=== PATIENT | male | born 1940 | race Caucasian/White ===

== ENCOUNTER → 2021-07-27 11:38 | Outpatient (CLI) | payer MEDICARE, OTHER, SELFPAY ==
[2021-07-27 19:34] LABS: Add Manual Diff / Slide Review NO; Basophils Absolute Auto 0 /uL (0-100); Basophils Percent Auto 0.6 % (0-2); Eosinophils Absolute Auto 200 /uL (0-450); Eosinophils Percent Auto 2.6 % (2-4); Hematocrit 35.3 % (41-53); Hemoglobin 11.5 g/dL (13.5-17.5); Lymphocytes Absolute Auto 1200 /uL (1100-4500); Lymphocytes Percent Auto 20.2 % (25-40); Mean Corpuscular HGB Conc 32.5 % (30-36); Mean Corpuscular Hemoglobin 31.7 PG (26-34); Mean Corpuscular Volume 97.5 fL (80-100); Monocytes Absolute Auto 500 /uL (0-900); Monocytes Percent Auto 8.6 % (3-14); Neutrophils Absolute Auto 3900 /uL (1500-7000); Platelet Count 184 X10^3/uL (150-400); Red Blood Cell Count 3.62 X10^6/uL (4.5-5.9); White Blood Cell Count 5.7 X10^3/uL (4.5-11.0)
[2021-07-27 19:42] LABS: Alanine Aminotransferase 26 IU/L (<50); Albumin 3.8 g/dL (3.5-5.0); Albumin Globulin Ratio 1.5 (1.0-2.8); Alkaline Phosphatase 88 U/L (38-126); Aspartate Aminotransferase 36 IU/L (17-59); BUN Creatinine Ratio 27.1 (6-22); Bilirubin Total 0.6 mg/dL (0.2-1.3); Blood Urea Nitrogen 19 mg/dL (9-20); Calcium 9.8 mg/dL (8.4-10.2); Carbon Dioxide 27 mmol/L (22-32); Chloride 109 mmol/L (98-107); Cholesterol 162 mg/dL (140-199); Estimated Glomerular Filt Rate > 60.0 mL/min (>60); Globulin 2.5 g/dL (1.7-4.1); Glucose 96 mg/dL (80-110); HDL Cholesterol 97 mg/dL (40-60); HEMOLYSIS < 15 (0-50); LDL Cholesterol Calculated 52 mg/dL (<100); Potassium 4.4 mmol/L (3.4-5.1); Sodium 141 mmol/L (137-145); Total Protein 6.3 g/dL (6.3-8.2); Triglycerides 63 mg/dL (35-150); Uric Acid 5.5 mg/dL (3.5-8.5)
[2021-07-27 19:47] LABS: Rheumatoid Factor < 8.6 IU/mL (<12.0)
[2021-07-27 20:13] LABS: Prostate Specific Antigen 0.137 ng/mL (0.10-4.00)
[2021-07-30 22:35] LABS: CCP Antibodies IgG/IgA 7 units (0-19)
== END ==
PROVIDERS: PCP Family Medicine; Referring Provider Physician Assistant; Visit Provider Physician Assistant
DX: M25.542 Pain in joints of left hand (principal); R97.20 Elevated prostate specific antigen [PSA]; I10 Essential (primary) hypertension; M25.541 Pain in joints of right hand; M25.511 Pain in right shoulder; M25.512 Pain in left shoulder; E78.5 Hyperlipidemia, unspecified
CPT/HCPCS: 80053; 80061; 84153; 84550; 85025; 86200; 86430

== ENCOUNTER → 2021-11-23 13:13 | Outpatient (CLI) | payer MEDICARE, OTHER, SELFPAY ==
[2021-11-23 19:31] LABS: Alanine Aminotransferase 20 IU/L (<50); Albumin 4.3 g/dL (3.5-5.0); Albumin Globulin Ratio 1.5 (1.0-2.8); Alkaline Phosphatase 83 U/L (38-126); Aspartate Aminotransferase 38 IU/L (17-59); Bilirubin Total 0.6 mg/dL (0.2-1.3); Bilirubin Unconjugated 0.4 mg/dL (0.0-1.1); Globulin 2.8 g/dL (1.7-4.1); HEMOLYSIS 20 (0-50); Total Protein 7.1 g/dL (6.3-8.2)
== END ==
PROVIDERS: PCP Family Medicine
DX: B35.1 Tinea unguium (principal); L30.8 Other specified dermatitis; L57.0 Actinic keratosis; L21.8 Other seborrheic dermatitis; L71.8 Other rosacea; L82.1 Other seborrheic keratosis; D18.01 Hemangioma of skin and subcutaneous tissue; L57.8 Other skin changes due to chronic exposure to nonionizing radiation
CPT/HCPCS: 80076

== ENCOUNTER → 2022-06-08 | Outpatient (CLI) | payer MEDICARE, OTHER, SELFPAY ==
[2022-06-08 20:24] LABS: Add Manual Diff / Slide Review NO; Basophils Absolute Auto 100 /uL (0-100); Basophils Percent Auto 0.8 % (0-2); Eosinophils Absolute Auto 200 /uL (0-450); Eosinophils Percent Auto 3.3 % (2-4); Hematocrit 38.9 % (41-53); Lymphocytes Absolute Auto 2100 /uL (1100-4500); Lymphocytes Percent Auto 30.2 % (25-40); Mean Corpuscular HGB Conc 33.3 % (30-36); Mean Corpuscular Hemoglobin 32.6 PG (26-34); Mean Corpuscular Volume 97.9 fL (80-100); Monocytes Absolute Auto 600 /uL (0-900); Monocytes Percent Auto 9.2 % (3-14); Neutrophils Absolute Auto 4000 /uL (1500-7000); Neutrophils Percent Auto 56.5 % (50-75); Platelet Count 128 X10^3/uL (150-400); Red Blood Cell Count 3.98 X10^6/uL (4.5-5.9); Red Cell Distribution Width 14.4 % (11.6-14.8); White Blood Cell Count 7.1 X10^3/uL (4.5-11.0)
[2022-06-08 20:26] LABS: Alanine Aminotransferase 16 IU/L (<50); Albumin 4.3 g/dL (3.5-5.0); Albumin Globulin Ratio 1.7 (1.0-2.8); Alkaline Phosphatase 117 U/L (38-126); Aspartate Aminotransferase 36 IU/L (17-59); BUN Creatinine Ratio 31.9 (6-22); Bilirubin Total 0.6 mg/dL (0.2-1.3); Blood Urea Nitrogen 23 mg/dL (9-20); Calcium 9.5 mg/dL (8.4-10.2); Carbon Dioxide 29 mmol/L (22-32); Chloride 103 mmol/L (98-107); Cholesterol 177 mg/dL (140-199); Estimated Glomerular Filt Rate > 60 mL/min (>60); Globulin 2.5 g/dL (1.7-4.1); Glucose 91 mg/dL (80-110); HEMOLYSIS 18 (0-50); Sodium 139 mmol/L (137-145); Total Protein 6.8 g/dL (6.3-8.2); Triglycerides 48 mg/dL (35-150)
[2022-06-08 20:40] LABS: HDL Cholesterol 115 mg/dL (40-60); LDL Cholesterol Calculated 52 mg/dL (<100)
[2022-06-08 21:02] LABS: Prostate Specific Antigen Scrn 0.191 ng/mL (0.1-4.0)
== END ==
PROVIDERS: PCP Family Medicine; Visit Provider Family Medicine
DX: E78.2 Mixed hyperlipidemia (principal); N52.9 Male erectile dysfunction, unspecified; Z12.5 Encounter for screening for malignant neoplasm of prostate; G89.29 Other chronic pain; I10 Essential (primary) hypertension; M12.9 Arthropathy, unspecified; N13.8 Other obstructive and reflux uropathy; N40.1 Benign prostatic hyperplasia with lower urinary tract symptoms; Z13.6 Encounter for screening for cardiovascular disorders; F11.90 Opioid use, unspecified, uncomplicated
CPT/HCPCS: 80053; 80061; 80305; 85025; G0103

== ENCOUNTER → 2022-08-03 10:32 | Outpatient (CLI) | payer MEDICARE, OTHER, SELFPAY ==
[2022-08-03 20:03] LABS: Add Manual Diff / Slide Review NO; Basophils Absolute Auto 100 /uL (0-100); Eosinophils Absolute Auto 200 /uL (0-450); Eosinophils Percent Auto 2.9 % (2-4); Hematocrit 37.9 % (41-53); Lymphocytes Absolute Auto 1700 /uL (1100-4500); Mean Corpuscular HGB Conc 34.3 % (30-36); Mean Corpuscular Hemoglobin 33.4 PG (26-34); Mean Corpuscular Volume 97.4 fL (80-100); Monocytes Absolute Auto 500 /uL (0-900); Neutrophils Absolute Auto 4100 /uL (1500-7000); Neutrophils Percent Auto 63.1 % (50-75); Platelet Count 167 X10^3/uL (150-400); Red Cell Distribution Width 14.4 % (11.6-14.8); White Blood Cell Count 6.5 X10^3/uL (4.5-11.0)
[2022-08-03 20:55] LABS: Testosterone 650 ng/dL (71.8-623)
== END ==
PROVIDERS: PCP Family Medicine; Visit Provider Family Medicine
DX: N52.9 Male erectile dysfunction, unspecified (principal); D53.8 Other specified nutritional anemias; D69.6 Thrombocytopenia, unspecified; F11.90 Opioid use, unspecified, uncomplicated; Z79.890 Hormone replacement therapy
CPT/HCPCS: 84403; 85025

== ENCOUNTER → 2022-10-18 13:05 | Outpatient (CLI) | payer MEDICARE, OTHER, SELFPAY ==
[2022-10-18 19:35] LABS: Add Manual Diff / Slide Review NO; Basophils Absolute Auto 0 /uL (0-100); Basophils Percent Auto 0.5 % (0-2); Eosinophils Absolute Auto 200 /uL (0-450); Eosinophils Percent Auto 2.4 % (2-4); Hematocrit 40.4 % (41-53); Hemoglobin 13.5 g/dL (13.5-17.5); Lymphocytes Absolute Auto 2200 /uL (1100-4500); Lymphocytes Percent Auto 27.5 % (25-40); Mean Corpuscular HGB Conc 33.5 % (30-36); Mean Corpuscular Hemoglobin 32.5 PG (26-34); Mean Corpuscular Volume 96.8 fL (80-100); Monocytes Absolute Auto 500 /uL (0-900); Monocytes Percent Auto 6.7 % (3-14); Neutrophils Absolute Auto 5000 /uL (1500-7000); Neutrophils Percent Auto 62.9 % (50-75); Platelet Count 191 X10^3/uL (150-400); Red Blood Cell Count 4.17 X10^6/uL (4.5-5.9); Red Cell Distribution Width 14.7 % (11.6-14.8)
[2022-10-18 19:42] LABS: HEMOLYSIS < 15 (0-50); Iron 86 ug/dL (49-181)
[2022-10-18 19:54] LABS: Percent Iron Saturation 24 % (20-50); Total Iron Binding Capacity 355 ug/dL (261-462); Transferrin 302 mg/dL (206-381)
[2022-10-18 20:15] LABS: Prostate Specific Antigen 0.209 ng/mL (0.10-4.00)
[2022-10-18 20:36] LABS: Vitamin B12 > 1000 pg/mL (239-931)
[2022-10-28 08:42] LABS: Percent Free Testosterone 1.41 % (1.50-4.20); Testosterone Free 5.23 ng/dL (5.00-21.00); Testosterone Total 370.7 ng/dL (264.0-916.0)
== END ==
PROVIDERS: PCP Family Medicine; Visit Provider Family Medicine
DX: D53.8 Other specified nutritional anemias (principal); N40.1 Benign prostatic hyperplasia with lower urinary tract symptoms; D69.6 Thrombocytopenia, unspecified; F11.90 Opioid use, unspecified, uncomplicated; I10 Essential (primary) hypertension; N52.9 Male erectile dysfunction, unspecified; R68.82 Decreased libido; Z79.890 Hormone replacement therapy; N13.8 Other obstructive and reflux uropathy
CPT/HCPCS: 82607; 83540; 83550; 84153; 84402; 84403; 85025

== ENCOUNTER → 2023-02-06 14:35 | Outpatient (CLI) | payer MEDICARE, OTHER, SELFPAY ==
[2023-02-06 19:08] LABS: Add Manual Diff / Slide Review NO; Basophils Absolute Auto 100 /uL (0-100); Basophils Percent Auto 0.9 % (0-2); Eosinophils Absolute Auto 100 /uL (0-450); Eosinophils Percent Auto 1.9 % (2-4); Lymphocytes Absolute Auto 1600 /uL (1100-4500); Lymphocytes Percent Auto 22.8 % (25-40); Mean Corpuscular HGB Conc 34.3 % (30-36); Mean Corpuscular Hemoglobin 33.5 PG (26-34); Mean Corpuscular Volume 97.6 fL (80-100); Monocytes Absolute Auto 600 /uL (0-900); Neutrophils Absolute Auto 4500 /uL (1500-7000); Neutrophils Percent Auto 65.4 % (50-75); Platelet Count 160 X10^3/uL (150-400); Red Blood Cell Count 3.59 X10^6/uL (4.5-5.9); Red Cell Distribution Width 14.7 % (11.6-14.8); White Blood Cell Count 6.9 X10^3/uL (4.5-11.0)
[2023-02-06 19:17] LABS: Alanine Aminotransferase 24 IU/L (<50); Albumin Globulin Ratio 1.6 (1.0-2.8); Alkaline Phosphatase 76 U/L (38-126); Aspartate Aminotransferase 34 IU/L (17-59); BUN Creatinine Ratio 36.4 (6-22); Bilirubin Total 0.6 mg/dL (0.2-1.3); Blood Urea Nitrogen 24 mg/dL (9-20); Calcium 9.1 mg/dL (8.4-10.2); Carbon Dioxide 25 mmol/L (22-32); Chloride 103 mmol/L (98-107); Estimated Glomerular Filt Rate > 60 mL/min (>60); Globulin 2.5 g/dL (1.7-4.1); Glucose 126 mg/dL (80-110); HEMOLYSIS 25 (0-50); Potassium 4.5 mmol/L (3.4-5.1); Sodium 137 mmol/L (137-145); Total Protein 6.5 g/dL (6.3-8.2)
[2023-02-14 11:23] LABS: Percent Free Testosterone 1.07 % (1.50-4.20); Testosterone Free 2.21 ng/dL (5.00-21.00); Testosterone Total 206.7 ng/dL (264.0-916.0)
== END ==
PROVIDERS: Family Medicine; PCP Family Medicine; Visit Provider Family Medicine
DX: D53.8 Other specified nutritional anemias (principal); D64.9 Anemia, unspecified; F11.90 Opioid use, unspecified, uncomplicated; I10 Essential (primary) hypertension; Z79.890 Hormone replacement therapy
CPT/HCPCS: 80053; 84402; 84403; 85025

== ENCOUNTER → 2023-06-08 11:02 | Outpatient (CLI) | payer MEDICARE, OTHER, SELFPAY ==
[2023-06-08 20:24] LABS: BUN Creatinine Ratio 27.4 (6-22); Blood Urea Nitrogen 23 mg/dL (9-20); Calcium 9.8 mg/dL (8.4-10.2); Carbon Dioxide 28 mmol/L (22-32); Chloride 98 mmol/L (98-107); Cholesterol 196 mg/dL (140-199); Estimated Glomerular Filt Rate > 60 mL/min (>60); Glucose 87 mg/dL (80-110); HEMOLYSIS 31 (0-50); Potassium 4.1 mmol/L (3.4-5.1); Sodium 135 mmol/L (137-145); Triglycerides 78 mg/dL (35-150)
[2023-06-08 20:27] LABS: Hemoglobin 12.3 g/dL (13.5-17.5); Mean Corpuscular HGB Conc 34.1 % (30-36); Mean Corpuscular Volume 99.8 fL (80-100); Platelet Count 160 X10^3/uL (150-400); Red Blood Cell Count 3.61 X10^6/uL (4.5-5.9); Red Cell Distribution Width 14.3 % (11.6-14.8); White Blood Cell Count 7.5 X10^3/uL (4.5-11.0)
[2023-06-08 20:37] LABS: HDL Cholesterol 111 mg/dL (40-60); LDL Cholesterol Calculated 69 mg/dL (<100)
[2023-06-08 20:49] LABS: Prostate Specific Antigen Scrn 0.118 ng/mL (0.1-4.0)
[2023-06-08 20:55] LABS: Reticulocyte Count, Percent 0.5 % (0.9-2.6)
[2023-06-08 21:04] LABS: Neutrophils Absolute Manual 4500 /uL (3000-5900); RBC Morphology Normal Morphology; Total Cells Counted 100
[2023-06-15 09:23] LABS: Percent Free Testosterone 1.08 % (1.50-4.20); Testosterone Free 2.69 ng/dL (5.00-21.00); Testosterone Total 249.4 ng/dL (264.0-916.0)
== END ==
PROVIDERS: PCP Family Medicine; Visit Provider Family Medicine
DX: Z12.5 Encounter for screening for malignant neoplasm of prostate (principal); N52.9 Male erectile dysfunction, unspecified; D64.9 Anemia, unspecified; D69.6 Thrombocytopenia, unspecified; E78.2 Mixed hyperlipidemia; Z79.890 Hormone replacement therapy; I10 Essential (primary) hypertension
CPT/HCPCS: 80048; 80061; 84402; 84403; 85025; 85045; G0103

== ENCOUNTER → 2023-11-23 09:25 | Outpatient (CLI) | payer MEDICARE, OTHER, SELFPAY ==
[2023-11-23 20:15] LABS: Add Manual Diff / Slide Review NO; Basophils Absolute Auto 100 /uL (0-100); Basophils Percent Auto 1.2 % (0-2); Eosinophils Absolute Auto 200 /uL (0-450); Hematocrit 35.7 % (41-53); Lymphocytes Absolute Auto 2100 /uL (1100-4500); Lymphocytes Percent Auto 28.8 % (25-40); Mean Corpuscular HGB Conc 33.7 % (30-36); Mean Corpuscular Hemoglobin 32.3 PG (26-34); Mean Corpuscular Volume 95.9 fL (80-100); Monocytes Absolute Auto 700 /uL (0-900); Neutrophils Absolute Auto 4200 /uL (1500-7000); Platelet Count 190 X10^3/uL (150-400); Red Blood Cell Count 3.72 X10^6/uL (4.5-5.9); Red Cell Distribution Width 14.8 % (11.6-14.8); White Blood Cell Count 7.5 X10^3/uL (4.5-11.0)
[2023-11-23 20:29] LABS: Alanine Aminotransferase 20 IU/L (<50); Albumin 4.2 g/dL (3.5-5.0); Albumin Globulin Ratio 1.6 (1.0-2.8); Alkaline Phosphatase 74 U/L (38-126); BUN Creatinine Ratio 26.9 (6-22); Bilirubin Total 0.7 mg/dL (0.2-1.3); Blood Urea Nitrogen 25 mg/dL (9-20); Calcium 10.1 mg/dL (8.4-10.2); Carbon Dioxide 27 mmol/L (22-32); Chloride 101 mmol/L (98-107); Cholesterol 185 mg/dL (140-199); Estimated Glomerular Filt Rate > 60 mL/min (>60); Globulin 2.7 g/dL (1.7-4.1); Glucose 105 mg/dL (80-110); HDL Cholesterol 101 mg/dL (40-60); HEMOLYSIS < 15 (0-50); LDL Cholesterol Calculated 71 mg/dL (<100); Potassium 3.8 mmol/L (3.4-5.1); Sodium 138 mmol/L (137-145); Total Protein 6.9 g/dL (6.3-8.2); Triglycerides 64 mg/dL (35-150)
[2023-11-24 15:35] LABS: Aspartate Aminotransferase 29 IU/L (17-59)
[2023-12-03 17:17] LABS: Percent Free Testosterone 1.13 % (1.50-4.20); Testosterone Total 141.6 ng/dL (264.0-916.0)
== END ==
PROVIDERS: PCP Family Medicine; Visit Provider Family Medicine
DX: D69.6 Thrombocytopenia, unspecified (principal); E78.2 Mixed hyperlipidemia; D64.9 Anemia, unspecified; I10 Essential (primary) hypertension; Z79.890 Hormone replacement therapy
CPT/HCPCS: 80053; 80061; 84402; 84403; 85025

== ENCOUNTER → 2024-04-11 09:34 | Outpatient (CLI) | payer MEDICARE, OTHER, SELFPAY ==
[2024-04-11 21:37] LABS: Add Manual Diff / Slide Review NO; Basophils Absolute Auto 100 /uL (0-100); Basophils Percent Auto 1.1 % (0-2); Eosinophils Absolute Auto 300 /uL (0-450); Eosinophils Percent Auto 4.2 % (2-4); Hematocrit 39.2 % (41-53); Hemoglobin 12.9 g/dL (13.5-17.5); Lymphocytes Absolute Auto 1700 /uL (1100-4500); Lymphocytes Percent Auto 26.8 % (25-40); Mean Corpuscular HGB Conc 32.8 % (30-36); Mean Corpuscular Hemoglobin 31.9 PG (26-34); Mean Corpuscular Volume 97.1 fL (80-100); Monocytes Absolute Auto 500 /uL (0-900); Monocytes Percent Auto 8.4 % (3-14); Neutrophils Absolute Auto 3700 /uL (1500-7000); Neutrophils Percent Auto 59.5 % (50-75); Platelet Count 181 X10^3/uL (150-400); Red Blood Cell Count 4.04 X10^6/uL (4.5-5.9); White Blood Cell Count 6.3 X10^3/uL (4.5-11.0)
[2024-04-11 22:40] LABS: Alanine Aminotransferase 17 IU/L (<50); Albumin 4.4 g/dL (3.5-5.0); Albumin Globulin Ratio 1.8 (1.0-2.8); Alkaline Phosphatase 90 U/L (38-126); Aspartate Aminotransferase 27 IU/L (17-59); BUN Creatinine Ratio 21.1 (6-22); Bilirubin Total 0.7 mg/dL (0.2-1.3); Blood Urea Nitrogen 16 mg/dL (9-20); Calcium 9.7 mg/dL (8.4-10.2); Carbon Dioxide 30 mmol/L (22-32); Chloride 103 mmol/L (98-107); Cholesterol 183 mg/dL (140-199); Estimated Glomerular Filt Rate > 60 mL/min (>60); Globulin 2.5 g/dL (1.7-4.1); Glucose 98 mg/dL (80-110); HDL Cholesterol 101 mg/dL (40-60); HEMOLYSIS < 15 (0-50); LDL Cholesterol Calculated 68 mg/dL (<100); Potassium 4.1 mmol/L (3.4-5.1); Sodium 138 mmol/L (137-145); Total Protein 6.9 g/dL (6.3-8.2); Triglycerides 68 mg/dL (35-150)
[2024-04-11 23:09] LABS: Prostate Specific Antigen Scrn 0.182 ng/mL (0.1-4.0)
== END ==
PROVIDERS: PCP Family Medicine; Visit Provider Family Medicine
DX: Z12.5 Encounter for screening for malignant neoplasm of prostate (principal); Z79.891 Long term (current) use of opiate analgesic; E78.2 Mixed hyperlipidemia; F41.8 Other specified anxiety disorders; R68.82 Decreased libido; Z79.890 Hormone replacement therapy; D64.9 Anemia, unspecified; D69.6 Thrombocytopenia, unspecified; N40.1 Benign prostatic hyperplasia with lower urinary tract symptoms; N13.8 Other obstructive and reflux uropathy; I10 Essential (primary) hypertension
CPT/HCPCS: 80053; 80061; 84402; 84403; 85025; G0103

== ENCOUNTER 2024-07-04 10:33 | Inpatient (IN) | payer MEDICARE, OTHER, SELFPAY ==
[2024-07-04] VITALS (14 sets, daily range): BP systolic 115–178; BP diastolic 70–101; PULSE 71–113; RESP 16–24; TEMP 36.2–36.9; O2SAT 94–99; BMI 18.8; BMI 18.2
--- NOTE | 2024-07-04 10:47 | EKG_ITS ---
[place] [id number] [place] [id number] Test Date: 2024-07-04 Pat Name: Darwin Tellez Department: [facility] Room: Gender: Male Endodontic Assistant: REGGIE : 1940 Requested By: Order Number: [id number] Reading MD: Alvaro Roger MD Measurements Intervals [place] Rate: 96 P: 62 KS: 146 QRS: 27 QRSD: 82 T: 75 QT: 360 QTc: 454 Interpretive Statements Sinus rhythm with premature atrial complexes Possible Anterior infarct , age undetermined NO PRIOR TRACING Electronically Signed On 07-04-2024 12:07:21 PDT by Alvaro Roger MD
--- NOTE | 2024-07-04 10:47 | ED_ITS ---
HPI - General Adult General Chief complaint: Abdominal Pain Stated complaint: GI issues Time Seen by Provider: 07/04/24 10:36 Source: patient Mode of arrival: Ambulatory Limitations: no limitations History of Present Illness HPI narrative: Patient is an 83-year-old male. He stated that the end of last week he had an episode of constipation requiring multiple medications in quite a bit of straining. He states he was able to have a bowel movement afterwards. He thinks that he has had 1 small bowel movement since that time. No urinary issues. He does have a history of bowel obstructions. He stated that he was pretty sore for several days. He finally thought that he could potentially eat something so he had food that had quite a bit of lemon in it. States that afterwards he started to have what he thought was heartburn. Tried medications for this that was not improving. He had neighbors who thought that he should take some vinegar mixed with water which is what he did and that made all of his symptoms worse. He went to his primary doctor today who advised that he come to the emergency department for further evaluation. Related Data Home Medications Medication Instructions Recorded Confirmed metformin 1,000 mg tablet,extended 1,000 mg PO DAILY 05/25/23 07/03/24 release 24hr (osmotic) Previous Rx's Medication Instructions Recorded sildenafil 100 mg tablet 100 mg PO DAILY PRN sexual 12/27/21 activity #10 tabs diclofenac epolamine 1.3 % 1 patch topical ONCE #30 ea 06/15/22 transdermal 12 hour patch (Flector) propranolol 10 mg tablet 10 mg PO .qday #60 tabs 10/10/22 celecoxib 200 mg capsule 200 mg PO DAILY #90 caps 10/06/23 amlodipine 5 mg tablet 5 mg PO DAILY #90 tabs 11/10/23 tamsulosin 0.4 mg capsule (Flomax) 0.8 mg (2 x 0.4 mg) PO BEDTIME 01/09/24 #180 caps ciclopirox 1 % shampoo 10 ml topical 2XW #120 mL 02/26/24 testosterone 10 mg/0.5 2 pump transdermal QAM #60 grams 02/26/24 gram/actuation transdermal gel pump methscopolamine 5 mg tablet 5 mg PO BEDTIME Allergic 03/28/24 rhinitis #90 tabs naloxone 4 mg/actuation nasal spray 4 mg intranasal Q2M #2 ea 03/28/24 irbesartan 300 mg tablet 300 mg PO DAILY high blood 04/25/24 pressure #90 tabs simvastatin 20 mg tablet 20 mg PO DAILY #90 tabs 04/25/24 hydrocodone 10 mg-acetaminophen 1 tab PO Q8H PRN pain #28 tabs 06/21/24 325 mg tablet finasteride 5 mg tablet See Rx Instructions .Route 06/26/24 .COMPLEX #90 tabs omeprazole 20 mg capsule,delayed 20 mg PO DAILY #30 caps 07/03/24 release ondansetron 8 mg disintegrating 8 mg PO Q8H PRN nausea and 07/04/24 tablet vomiting #20 tabs Allergies Allergy/AdvReac Type Severity Reaction Status Date / Time Sulfa (Sulfonamide Allergy Verified 07/03/24 12:20 Antibiotics) Review of Systems Review of Systems ROS Unobtainable: All systems reviewed & are unremarkable except as noted in HPI and below Patient History Medical History History of anemia Unspecified disturbances of skin sensation Surgical History (Updated 04/05/22 @ 15:20 by Nataliia King LPN) History of spinal fusion Social History Smoking Status: Former smoker Smoking Status: Former smoker Exam Initial Vital Signs Initial Vital Signs: Vital Signs Pulse Rate 84 07/04/24 11:14 Respiratory Rate 18 07/04/24 11:14 Pulse Oximetry 97 07/04/24 11:14 HENMT Head: normal to inspection and normocephalic Resp Effort & Inspection: normal respiratory effort Auscultation: clear to auscultation bilaterally Cardio Rate: regular rate Rhythm: regular rhythm GI Inspection: normal to inspection and non-distended Palpation: soft and No tender Skin General: no rashes or lesions noted Neuro General: patient alert and patient awake Course Orders Ordered: ED Orders 07/04/24 10:46 CT abdomen pelvis w con Stat 07/04/24 10:47 XR chest 1V Stat EKG-12 Lead Stat 07/04/24 10:49 Complete Blood Count AUTO DIFF Stat Comprehensive Metabolic Panel Stat Lipase Stat Magnesium Stat Troponin & CK Cardiac Panel Stat 07/04/24 11:33 Ictotest Urine Stat Urine Microscopic Stat 07/04/24 12:29 Consult to General Surgery Stat Hydromorphone HCl (Hydromorphone 0.5 Mg Inj) 0.5 mg IV Q2H PRN PRN Reason: Pain, Severe (7-10) Last Admin: 07/04/24 14:19 Dose: 0.5 mg Documented By: JEFF Discontinued Medications Al Hydrox/Mg Hydrox/Simethicone 20 ml/ Lidocaine HCl 15 ml 0 ml PO NOW ONE Stop: 07/04/24 10:47 Last Admin: 07/04/24 11:04 Dose: 35 ml Documented By: KENNETH Sodium Chloride (Normal Saline 0.9%) 1,000 mls @ 1,000 mls/hr IV BOLUS ONE Stop: 07/04/24 11:45 Last Infusion: 07/04/24 12:12 Dose: Infused Documented By: Admin: 07/04/24 11:03 Dose: 1,000 mls/hr Documented By: KENNETH Ondansetron HCl (Ondansetron 4 Mg/2 Ml Inj) 4 mg IV NOW ONE Stop: 07/04/24 10:53 Last Admin: 07/04/24 11:04 Dose: 4 mg Documented By: KENNETH Pantoprazole Sodium (Pantoprazole 40 Mg Vial) 40 mg IV NOW ONE Stop: 07/04/24 10:47 Last Admin: 07/04/24 11:04 Dose: 40 mg Documented By: KENNETH Vital Signs Vital signs: Vital Signs - 8 hr 07/04/24 11:14 07/04/24 11:15 07/04/24 11:32 Temperature 97.1 F L Pulse Rate 84 98 H 84 Respiratory Rate 18 16 Blood Pressure 115/70 Pulse Oximetry 97 99 96 Oxygen Delivery Method Room Air 07/04/24 12:00 07/04/24 12:30 Temperature Pulse Rate 76 82 Respiratory Rate 23 17 Blood Pressure Pulse Oximetry 99 98 Oxygen Delivery Method Medical Decision Making Lab Data Lab results reviewed: Yes I reviewed the patient's lab results. 07/04/24 10:49 07/04/24 10:49 Labs: Lab Results 07/04/24 07/04/24 Range/Units 10:49 11:33 WBC 15.3 H (4.5-11.0) X10^3/uL RBC 4.08 L (4.5-5.9) X10^6/uL Hgb 12.9 L (13.5-17.5) g/dL Hct 38.8 L (41-53) % MCV 95.0 (80-100) fL MCH 31.7 (26-34) PG MCHC 33.3 (30-36) % RDW 15.1 H (11.6-14.8) % Plt Count 298 (150-400) X10^3/uL Neut % (Auto) 80.2 H (50-75) % Lymph % (Auto) 7.8 L (25-40) % [place] % (Auto) 11.2 (3-14) % Eos % (Auto) 0.5 L (2-4) % Baso % (Auto) 0.3 (0-2) % Neut # (Auto) 86665 H (2201-7955) /uL Lymph # (Auto) 1200 (9500-3106) /uL [place] # (Auto) 1700 H (0-900) /uL Eos # (Auto) 100 (0-450) /uL Baso # (Auto) 100 (0-100) /uL Sodium 131 L (137-145) mmol/L Potassium 3.4 (3.4-5.1) mmol/L Chloride 88 L (98-107) mmol/L Carbon Dioxide 33 H (22-32) mmol/L BUN 55 H (9-20) mg/dL Creatinine 1.24 (0.66-1.25) mg/dL Estimated GFR 58 L (>60) mL/min BUN/Creatinine Ratio 44.4 H (6-22) Glucose 125 H (80-110) mg/dL Calcium 10.2 (8.4-10.2) mg/dL Magnesium 2.3 (1.6-2.3) mg/dL Total Bilirubin 0.8 (0.2-1.3) mg/dL AST 30 (17-59) IU/L ALT 18 (<50) IU/L Alkaline Phosphatase 83 (38-126) U/L Total Creatine Kinase 32 L (55-170) U/L Troponin I < 0.012 (0.01-0.034) ng/mL Total Protein 7.0 (6.3-8.2) g/dL Albumin 3.9 (3.5-5.0) g/dL Globulin 3.1 (1.7-4.1) g/dL Albumin/Globulin Ratio 1.3 (1.0-2.8) Lipase 49 (23-300) U/L Ur Bilirubin Confirm Negative (Negative) Urine RBC None seen (0-5/HPF) Urine WBC None seen (0-5/HPF) Ur Squamous Epith Cells None seen (0-5/HPF) Urine Bacteria None seen (None) Ur Culture Indicated? Cult not indicated Vol Urine Centrifuged 10ml (spun) Urine Dip Bedside Urine Glucose Negative Bedside Urine Bilirubin + 1 Bedside Urine Ketone - Negative Urine Specific [place] 1.020 Bedside Urine Occult Blood - Negative Bedside Urine pH 6.0 Bedside Urine Protein +/- 15 Bedside Urine Urobilinogen - Negative Bedside Urine Nitrite - Negative Bedside Urine Leukocytes - Negative Esterase Point of care testing: Urine Dip Bedside Urine Glucose Negative Bedside Urine Bilirubin + 1 Bedside Urine Ketone - Negative Urine Specific [place] 1.020 Bedside Urine Occult Blood - Negative Bedside Urine pH 6.0 Bedside Urine Protein +/- 15 Bedside Urine Urobilinogen - Negative Bedside Urine Nitrite - Negative Bedside Urine Leukocytes - Negative Esterase Imaging Data Chest x-ray: Radiologist's Impression: PROCEDURE: XR CHEST 1V INDICATIONS: acid reflux TECHNIQUE: One view of the chest was acquired. COMPARISON: None. FINDINGS: Surgical changes and devices: Cervical spine fixation hardware is seen. Lungs and pleura: An incomplete inspiratory result is noted, causing a crowded appearance to the lung markings. No focal infiltrates are seen. No pneumothorax or significant pleural effusions are seen. Mediastinum: The cardiac contours are within normal limits. The aorta demonstrates calcification and tortuosity. Bones and chest wall: No suspicious bony lesions. Age-appropriate bony degenerative changes are seen. Overlying soft tissues appear unremarkable. IMPRESSION: Portable chest within normal limits for age. CT scan - abdomen/pelvis: Radiologist's Impression: PROCEDURE: CT ABDOMEN PELVIS W CON INDICATIONS: Eval for bowel obstruction TECHNIQUE: After the administration of intravenous contrast, axial sections acquired from the lung bases to the pubic symphysis. Coronal and sagittal reformats were performed. For radiation dose reduction, the following was used: automated exposure control, adjustment of mA and/or kV according to patient size. COMPARISON: None. FINDINGS: Image quality: Diagnostic. Lower Chest: No significant findings. ABDOMEN: Liver: No solid mass. Gallbladder: No radiopaque gallstones or wall thickening. Biliary ducts: No biliary dilation. Pancreas: No ductal dilation. Spleen: Size is within normal limits. Adrenal Glands: No adrenal nodules. Kidneys and Ureters: No hydronephrosis. No solid mass. No complex renal cystic lesion which requires follow up. Stomach and Bowel: High-grade proximal small bowel obstruction involving the jejunum with a transition point present. Small bowel measures up to 6.3 cm. Peritoneum: No abnormal intraperitoneal fluid. No free air. No intramural air. No portal venous gas. Ventral Wall: No significant ventral hernia. Abdominal Nodes: No retroperitoneal or mesenteric adenopathy by size criteria. Vessels: Aorta and inferior vena cava are normal in size. PELVIS: Pelvic Organs: Unremarkable. Bladder: No bladder wall thickening, accounting for underdistention. Pelvic Nodes: No enlarged lymph nodes. Miscellaneous: No inguinal hernias are seen. Bones: No aggressive osseous abnormality. Bilateral L5 pars defects, trace anterolisthesis of L5 on S1, and left right foraminal narrowing with left foraminal L5 nerve root impingement. IMPRESSION: High-grade proximal small bowel obstruction with a transition point and marked dilatation of proximal small bowel to up to 6.3 cm. 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 ECG Data Attestation: I personally reviewed and interpreted this ECG as follows: Interpretation: Sinus rhythm Ventricular rate 96 Normal axis Normal QRS Normal QTC No ST T wave changes MDM Narrative Medical decision making narrative: He 3-year-old male who on CT scan appears to have a proximal small-bowel obstruction. He was had these symptoms in the past. I did discuss the case with Dr. Diggs on-call for General surgery who recommended the patient be admitted to the Medicine Service. I then discussed the case with Dr. De Luna hospitalist on-call who will admit. I did discuss the findings with the patient. He expressed understanding and agreement with plan. Discharge Plan Departure Patient Disposition: Admitted As Inpatient Clinical Impression: Small bowel obstruction Admit Date/Time: 07/04/24 12:38 Admit Provider: Nacho De Luna
[2024-07-04 10:56] LABS: Add Manual Diff / Slide Review NO; Basophils Absolute Auto 100 /uL (0-100); Basophils Percent Auto 0.3 % (0-2); Eosinophils Absolute Auto 100 /uL (0-450); Eosinophils Percent Auto 0.5 % (2-4); Hematocrit 38.8 % (41-53); Hemoglobin 12.9 g/dL (13.5-17.5); Lymphocytes Absolute Auto 1200 /uL (1100-4500); Lymphocytes Percent Auto 7.8 % (25-40); Mean Corpuscular HGB Conc 33.3 % (30-36); Mean Corpuscular Hemoglobin 31.7 PG (26-34); Monocytes Absolute Auto 1700 /uL (0-900); Monocytes Percent Auto 11.2 % (3-14); Neutrophils Absolute Auto 12200 /uL (1500-7000); Neutrophils Percent Auto 80.2 % (50-75); Platelet Count 298 X10^3/uL (150-400); Red Blood Cell Count 4.08 X10^6/uL (4.5-5.9); Red Cell Distribution Width 15.1 % (11.6-14.8); White Blood Cell Count 15.3 X10^3/uL (4.5-11.0)
[2024-07-04] MEDS: SODIUM CHLORIDE 0.9% 1,000 ML 1000 ML IV (11:03)
[2024-07-04] MEDS: MAG HYDROX/ALUMINUM/SIMETH SUS 20 ML, LIDOCAINE VISCOUS 2% 15 ML PO (11:04)
[2024-07-04] MEDS: PANTOPRAZOLE 40 MG VIAL IV (11:04)
[2024-07-04] MEDS: ONDANSETRON 4 MG/2 ML INJ IV (11:04)
[2024-07-04 11:09] LABS: Alanine Aminotransferase 18 IU/L (<50); Albumin 3.9 g/dL (3.5-5.0); Albumin Globulin Ratio 1.3 (1.0-2.8); Alkaline Phosphatase 83 U/L (38-126); Aspartate Aminotransferase 30 IU/L (17-59); BUN Creatinine Ratio 44.4 (6-22); Bilirubin Total 0.8 mg/dL (0.2-1.3); Blood Urea Nitrogen 55 mg/dL (9-20); Calcium 10.2 mg/dL (8.4-10.2); Carbon Dioxide 33 mmol/L (22-32); Chloride 88 mmol/L (98-107); Creatine Kinase 32 U/L (55-170); Estimated Glomerular Filt Rate 58 mL/min (>60); Globulin 3.1 g/dL (1.7-4.1); Glucose 125 mg/dL (80-110); HEMOLYSIS 47 (0-50); Lipase 49 U/L (23-300); Magnesium 2.3 mg/dL (1.6-2.3); Potassium 3.4 mmol/L (3.4-5.1); Sodium 131 mmol/L (137-145)
[2024-07-04 11:21] LABS: Troponin I < 0.012 ng/mL (0.01-0.034)
[2024-07-04 11:53] LABS: Ictotest Urine Negative (Negative)
[2024-07-04 11:54] LABS: Urine Volume 10mL (spun)
[2024-07-04 12:00] LABS: Bacteria Urine None Seen; RBC Urine None Seen (0-5/HPF); Squamous Epithelial Cell Urine None Seen (0-5/HPF); WBC Urine None Seen (0-5/HPF)
[2024-07-04 12:01] LABS: Culture Indicated Urine Cult Not Indicated
--- NOTE | 2024-07-04 13:22 | DI.RAD.S_ITS ---
PROCEDURE: XR CHEST 1V INDICATIONS: post NG tube placement TECHNIQUE: One view of the chest was acquired. COMPARISON: . [facility], CT, CT ABDOMEN PELVIS W CON, 07/04/2024, 11:. [address] [place] [address], CR, XR CHEST 1V, 07/04/2024, 10:52. FINDINGS: Surgical changes and devices: Enteric decompression tube tip projects over the upper mediastinum. Lungs and pleura: Subtle left basilar patchy consolidation. No pleural effusions or pneumothorax. Mediastinum: Mediastinal contours appear normal. Heart size is normal. Aortic arch is calcified, indicating atherosclerosis. Bones and chest wall: No suspicious bony lesions. Overlying soft tissues appear unremarkable. Dilated loops of small bowel in the upper abdomen. IMPRESSION: 1. Enteric decompression tube tip projects over the upper mediastinum. 2. Subtle left basilar patchy consolidation favored to represent atelectasis, less likely aspiration. 3. Dilated loops of small bowel in the upper abdomen compatible with known obstruction, as seen on same day CT. Dictated by: J Luis Galo M.D. on 07/04/2024 at 14:14 Approved by: J Luis Galo M.D. on 07/04/2024 at 14:17
--- NOTE | 2024-07-04 13:32 | PC.NURSE ---
OGT to LIS , pt tolerated well, some small amount of resistance.
--- NOTE | 2024-07-04 13:56 | PC.NURSE ---
pt started putting his fingers in his mouth.looked into his mouth,OGt curled up. attempted to replace. difficult, OGT pulled out and floor made aware to replace.
[2024-07-04] MEDS: HYDROMORPHONE 0.5 MG INJ IV ×4 (14:19→20:36)
[2024-07-04] MEDS: SODIUM CHLORIDE 0.9% 1,000 ML 125 ML IV ×2 (15:54→23:49)
--- NOTE | 2024-07-04 16:28 | PM.HP.1 ---
History of Present Illness History of Present Illness Date Patient Seen: 07/04/24 Time Patient Seen: 16:28 Chief complaint: GI issues Narrative: This is an 83 year old male with PMH of low testosterone, HTN, HLD, BPH, chronic anemia who presented with abdominal pain, nausea, vomiting for the past 6 days. Patient states approx 6 days ago he starting feeling constipated, with bad abdominal pain keeping him up most of the night. He took laxitives and an enema, and was able to have a bowel movement but he had very decreased appetite moving forward. He is a bit fuzzy with pain medication currently, and it is difficult to tell if there was resolution of his symptoms after the bowel movement, but he did try a salmon burger which he did not seem to tolerate. He then tried crackers and then liquids with progressive symptoms and decided to come to the emergency room today. He has had nbnb emesis and nausea. Abdomen is not that distended but sore. reports 7 lb weight loss in the past week. In the ER, CT showed a high grade bowel obstruction. NG tube was attempted but coiled, then removed. Patient agreeable to re-attempt. He was started on IV fluid, admitted for small bowel obstruction. COUNT INCLUDES THE [facility] Medical History History of anemia Unspecified disturbances of skin sensation Surgical History (Updated 07/04/24 @ 17:01 by Nacho De Luna DO) H/O exploratory laparotomy History of spinal fusion Social History household members: spouse Smoking Status: Former smoker alcohol intake: former Meds Home Medications and Allergies Home Medications Medication Instructions Recorded Confirmed Type sildenafil 100 mg tablet 100 mg PO DAILY PRN sexual 12/27/21 07/04/24 Rx activity #10 tabs diclofenac epolamine 1.3 % 1 patch topical ONCE #30 ea 06/15/22 07/04/24 Rx transdermal 12 hour patch (Flector) propranolol 10 mg tablet 10 mg PO .qday #60 tabs 10/10/22 07/04/24 Rx metformin 1,000 mg tablet,extended 1,000 mg PO DAILY 05/25/23 07/04/24 History release 24hr (osmotic) celecoxib 200 mg capsule 200 mg PO DAILY #90 caps 10/06/23 07/04/24 Rx amlodipine 5 mg tablet 5 mg PO DAILY #90 tabs 11/10/23 07/04/24 Rx tamsulosin 0.4 mg capsule (Flomax) 0.8 mg (2 x 0.4 mg) PO BEDTIME 01/09/24 07/04/24 Rx #180 caps ciclopirox 1 % shampoo 10 ml topical 2XW #120 mL 02/26/24 07/04/24 Rx testosterone 10 mg/0.5 2 pump transdermal QAM #60 grams 02/26/24 07/04/24 Rx gram/actuation transdermal gel pump methscopolamine 5 mg tablet 5 mg PO BEDTIME Allergic 03/28/24 07/04/24 Rx rhinitis #90 tabs naloxone 4 mg/actuation nasal spray 4 mg intranasal Q2M #2 ea 03/28/24 07/04/24 Rx irbesartan 300 mg tablet 300 mg PO DAILY high blood 04/25/24 07/04/24 Rx pressure #90 tabs simvastatin 20 mg tablet 20 mg PO DAILY #90 tabs 04/25/24 07/04/24 Rx hydrocodone 10 mg-acetaminophen 1 tab PO Q8H PRN pain #28 tabs 06/21/24 07/04/24 Rx 325 mg tablet finasteride 5 mg tablet See Rx Instructions .Route 06/26/24 07/04/24 Rx .COMPLEX #90 tabs omeprazole 20 mg capsule,delayed 20 mg PO DAILY #30 caps 07/03/24 07/04/24 Rx release ondansetron 8 mg disintegrating 8 mg PO Q8H PRN nausea and 07/04/24 07/04/24 Rx tablet vomiting #20 tabs Allergies Allergy/AdvReac Type Severity Reaction Status Date / Time Sulfa (Sulfonamide Allergy Verified 07/03/24 12:20 Antibiotics) Review of Systems Review of Systems Narrative: All other systems reviewed with the patient and are negative unless otherwise stated. Exam Vital Signs (past 8 hours): - 07/04/24 11:14 07/04/24 11:15 07/04/24 11:32 Temperature 97.1 F L Pulse Rate 84 98 H 84 Respiratory Rate 18 16 Blood Pressure 115/70 Pulse Oximetry 97 99 96 Oxygen Delivery Method Room Air Oxygen Flow Rate 07/04/24 12:00 07/04/24 12:30 07/04/24 13:00 Temperature Pulse Rate 76 82 107 H Respiratory Rate 23 17 22 Blood Pressure Pulse Oximetry 99 98 Oxygen Delivery Method Oxygen Flow Rate 07/04/24 13:19 07/04/24 13:20 07/04/24 13:20 Temperature Pulse Rate 105 H 102 H Respiratory Rate 22 Blood Pressure 178/101 H Pulse Oximetry 98 98 Oxygen Delivery Method Room Air Oxygen Flow Rate 07/04/24 13:30 07/04/24 13:30 07/04/24 13:31 Temperature Pulse Rate 113 H 105 H Respiratory Rate 24 20 Blood Pressure 170/94 H Pulse Oximetry 95 95 Oxygen Delivery Method Room Air Oxygen Flow Rate 07/04/24 13:31 07/04/24 14:00 07/04/24 14:00 Temperature Pulse Rate 99 H Respiratory Rate 19 Blood Pressure 164/91 H 135/87 Pulse Oximetry 96 Oxygen Delivery Method Room Air Oxygen Flow Rate 07/04/24 14:48 Temperature Pulse Rate Respiratory Rate Blood Pressure Pulse Oximetry 96 Oxygen Delivery Method Room Air Oxygen Flow Rate 0 Oxygen Delivery Method Room Air Oxygen Flow Rate 0 Narrative Exam Narrative: General:? Patient is thin, mildly ill appearing, in no distress at this time. HEENT:? Normocephalic, atraumatic, extraocular muscles intact, oral pharynx is clear and mucous membranes are dry. Neck: supple and symmetric, trachea is midline, no cervical adenopathy. Chest:? Normal AP diameter and contour without kyphoscoliosis, no tachypnea, equal chest rise bilaterally. Lungs:? CTA b/l no wheezing rhonchi or rales. Cardio:?RRR no m/r/g. Abdomen: soft, relatively non-distended, tender in the LUQ periumbilical area. Musculoskeletal:? Muscle strength and tone are equal within normal limits, no deformity. Extremities: No edema or joint effusions. No cyanosis or clubbing. Objective ECG Impression: NSR with PAC. no acute ischemia as interpreted by me. Labs 07/04/24 10:49 07/04/24 10:49 Labs: Laboratory Results - last 24 hr 07/04/24 07/04/24 10:49 11:33 WBC 15.3 H RBC 4.08 L Hgb 12.9 L Hct 38.8 L MCV 95.0 MCH 31.7 MCHC 33.3 RDW 15.1 H Plt Count 298 Neut % (Auto) 80.2 H Lymph % (Auto) 7.8 L [place] % (Auto) 11.2 Eos % (Auto) 0.5 L Baso % (Auto) 0.3 Neut # (Auto) 83336 H Lymph # (Auto) 1200 [place] # (Auto) 1700 H Eos # (Auto) 100 Baso # (Auto) 100 Sodium 131 L Potassium 3.4 Chloride 88 L Carbon Dioxide 33 H BUN 55 H Creatinine 1.24 Estimated GFR 58 L BUN/Creatinine Ratio 44.4 H Glucose 125 H Calcium 10.2 Magnesium 2.3 Total Bilirubin 0.8 AST 30 ALT 18 Alkaline Phosphatase 83 Total Creatine Kinase 32 L Troponin I < 0.012 Total Protein 7.0 Albumin 3.9 Globulin 3.1 Albumin/Globulin Ratio 1.3 Lipase 49 Ur Bilirubin Confirm Negative Urine RBC None seen Urine WBC None seen Ur Squamous Epith Cells None seen Urine Bacteria None seen Ur Culture Indicated? Cult not indicated Vol Urine Centrifuged 10ml (spun) Assessment & Plan Assessment & Plan narrative: 1. SBO secondary to adhesions - NPO, IV fluids. CT scan showing a high grade obstruction. - appreciate general surgery consultation, discussed with surgeon whom will re-attempt NG tube placement. - zofran as needed for nausea. - follow leukocytosis, no other signs or symptoms of infection at this time but WBC 15K. CXR without evidence of aspiraiton. UA negative. 2. CLAUDIA - likely due to dehydration. Cr 1.24 on admit from 0.7 at baseline. Continue to follow. IV fluids ordered NS @125 for now. s/p 1L bolus in ER. 3. Severe acute protein malnutrition - recent 7lb weight loss, BMI 18.2 at age 83, appears very thin and malnourished. - will have nutrition evaluation, pending resolution of bowel obstruction noted above. 4. BPH - continue flomax 5. HTN - hold home irbesartan, propranolol, amlodipine for now. - restart some antihypertensives if patient becomes hypertensive. Code: Full, surrogate is patient's spouse DVT: SCDs for now, given possibility of surgery I have utilized all available immediate resources to obtain, update, or review the patient's current medications. Dispo: patient admitted under inpatient status. Anticipate at least 2 night stay in the hospital, depending on ongoing course. Additional history obtained via discussions with the ER provider, patient's spouse, and discussion with the general surgeon. These discussions contributed to the creation of the above assessment and plan. I have reviewed patient's presenting documentation, labs, and imaging personally. Time-Based Coding :: [TOTAL MINUTES] spent with patient and on the chart (including review of chart, obtaining history, exam, reviewing outside data, placing orders, documenting exam and treatment plan, and counseling patient) on [DATE]. Quality VTE Deep Vein Thrombosis/Pulmonary Embolism Present on Admission: No
--- NOTE | 2024-07-04 17:01 | PM.CN ---
History of Present Illness Consult details Date Patient Seen: 07/04/24 Time Patient Seen: 17:01 Chief complaint: GI issues Narrative: Darwin is an 83-year-old man who presents with a bowel obstruction. His history with abdominal surgery and bowel obstructions goes back to the 80s when he believes he became obstructed after eating too much cheese. He feels that he has been diagnosed and had a surgery at [facility] for a presumed bowel obstruction but none was found. He then developed an actual bowel obstruction several months later and had surgery. He has had recurring obstructive episodes over the decades since then but has never had another surgery. He did have a bowel obstruction at one point that resolved after just NG tube decompression alone. He has had an open appendectomy prior to his first surgery for a bowel obstruction. His current symptoms started approximately 4 days ago when he thought he was constipated initially. He started to have vomiting as well as abdominal discomfort. He has passed some gas within the past [address] scan shows a high-grade proximal small-bowel obstruction. Meds Home Medications and Allergies Home Medications Medication Instructions Recorded Confirmed Type sildenafil 100 mg tablet 100 mg PO DAILY PRN sexual 12/27/21 07/04/24 Rx activity #10 tabs diclofenac epolamine 1.3 % 1 patch topical ONCE #30 ea 06/15/22 07/04/24 Rx transdermal 12 hour patch (Flector) propranolol 10 mg tablet 10 mg PO .qday #60 tabs 10/10/22 07/04/24 Rx metformin 1,000 mg tablet,extended 1,000 mg PO DAILY 05/25/23 07/04/24 History release 24hr (osmotic) celecoxib 200 mg capsule 200 mg PO DAILY #90 caps 10/06/23 07/04/24 Rx amlodipine 5 mg tablet 5 mg PO DAILY #90 tabs 11/10/23 07/04/24 Rx tamsulosin 0.4 mg capsule (Flomax) 0.8 mg (2 x 0.4 mg) PO BEDTIME 01/09/24 07/04/24 Rx #180 caps ciclopirox 1 % shampoo 10 ml topical 2XW #120 mL 02/26/24 07/04/24 Rx testosterone 10 mg/0.5 2 pump transdermal QAM #60 grams 02/26/24 07/04/24 Rx gram/actuation transdermal gel pump methscopolamine 5 mg tablet 5 mg PO BEDTIME Allergic 03/28/24 07/04/24 Rx rhinitis #90 tabs naloxone 4 mg/actuation nasal spray 4 mg intranasal Q2M #2 ea 03/28/24 07/04/24 Rx irbesartan 300 mg tablet 300 mg PO DAILY high blood 04/25/24 07/04/24 Rx pressure #90 tabs simvastatin 20 mg tablet 20 mg PO DAILY #90 tabs 04/25/24 07/04/24 Rx hydrocodone 10 mg-acetaminophen 1 tab PO Q8H PRN pain #28 tabs 06/21/24 07/04/24 Rx 325 mg tablet finasteride 5 mg tablet See Rx Instructions .Route 06/26/24 07/04/24 Rx .COMPLEX #90 tabs omeprazole 20 mg capsule,delayed 20 mg PO DAILY #30 caps 07/03/24 07/04/24 Rx release ondansetron 8 mg disintegrating 8 mg PO Q8H PRN nausea and 07/04/24 07/04/24 Rx tablet vomiting #20 tabs Allergies Allergy/AdvReac Type Severity Reaction Status Date / Time Sulfa (Sulfonamide Allergy Verified 07/03/24 12:20 Antibiotics) Exam Vital Signs (past 8 hours): - 07/04/24 11:14 07/04/24 11:15 07/04/24 11:32 Temperature 97.1 F L Pulse Rate 84 98 H 84 Respiratory Rate 18 16 Blood Pressure 115/70 Pulse Oximetry 97 99 96 Oxygen Delivery Method Room Air Oxygen Flow Rate 07/04/24 12:00 07/04/24 12:30 07/04/24 13:00 Temperature Pulse Rate 76 82 107 H Respiratory Rate 23 17 22 Blood Pressure Pulse Oximetry 99 98 Oxygen Delivery Method Oxygen Flow Rate 07/04/24 13:19 07/04/24 13:20 07/04/24 13:20 Temperature Pulse Rate 105 H 102 H Respiratory Rate 22 Blood Pressure 178/101 H Pulse Oximetry 98 98 Oxygen Delivery Method Room Air Oxygen Flow Rate 07/04/24 13:30 07/04/24 13:30 07/04/24 13:31 Temperature Pulse Rate 113 H 105 H Respiratory Rate 24 20 Blood Pressure 170/94 H Pulse Oximetry 95 95 Oxygen Delivery Method Room Air Oxygen Flow Rate 07/04/24 13:31 07/04/24 14:00 07/04/24 14:00 Temperature Pulse Rate 99 H Respiratory Rate 19 Blood Pressure 164/91 H 135/87 Pulse Oximetry 96 Oxygen Delivery Method Room Air Oxygen Flow Rate 07/04/24 14:48 Temperature Pulse Rate Respiratory Rate Blood Pressure Pulse Oximetry 96 Oxygen Delivery Method Room Air Oxygen Flow Rate 0 Oxygen Delivery Method Room Air Oxygen Flow Rate 0 Narrative Exam Narrative: Abdomen is soft and minimally tender There is a midline surgical scar, a left lower drain site scar and a right lower quadrant McBurney's surgical scar Objective Labs 07/04/24 10:49 07/04/24 10:49 Labs: Laboratory Results - last 24 hr 07/04/24 07/04/24 10:49 11:33 WBC 15.3 H RBC 4.08 L Hgb 12.9 L Hct 38.8 L MCV 95.0 MCH 31.7 MCHC 33.3 RDW 15.1 H Plt Count 298 Neut % (Auto) 80.2 H Lymph % (Auto) 7.8 L [place] % (Auto) 11.2 Eos % (Auto) 0.5 L Baso % (Auto) 0.3 Neut # (Auto) 18259 H Lymph # (Auto) 1200 [place] # (Auto) 1700 H Eos # (Auto) 100 Baso # (Auto) 100 Sodium 131 L Potassium 3.4 Chloride 88 L Carbon Dioxide 33 H BUN 55 H Creatinine 1.24 Estimated GFR 58 L BUN/Creatinine Ratio 44.4 H Glucose 125 H Calcium 10.2 Magnesium 2.3 Total Bilirubin 0.8 AST 30 ALT 18 Alkaline Phosphatase 83 Total Creatine Kinase 32 L Troponin I < 0.012 Total Protein 7.0 Albumin 3.9 Globulin 3.1 Albumin/Globulin Ratio 1.3 Lipase 49 Ur Bilirubin Confirm Negative Urine RBC None seen Urine WBC None seen Ur Squamous Epith Cells None seen Urine Bacteria None seen Ur Culture Indicated? Cult not indicated Vol Urine Centrifuged 10ml (spun) [facility] Medical History History of anemia Unspecified disturbances of skin sensation Surgical History History of spinal fusion Social History household members: spouse Tobacco & Substance Use Smoking Status: Former smoker alcohol intake: former Assessment & Plan Assessment and plan (1) Small bowel obstruction: Status: Acute Plan Recommend NG tube decompression for a small-bowel obstruction. Time-Based Coding :: [TOTAL MINUTES] spent with patient and on the chart (including review of chart, obtaining history, exam, reviewing outside data, placing orders, documenting exam and treatment plan, and counseling patient) on [DATE].
[2024-07-04] MEDS: LORazepam 2 MG/ML INJ 0.5 MG IV (17:03)
[2024-07-05] VITALS (7 sets, daily range): BP systolic 114–149; BP diastolic 68–77; PULSE 65–77; RESP 12–16; TEMP 36.6–37.6; O2SAT 94–98
[2024-07-05] MEDS: HYDROMORPHONE 0.5 MG INJ IV ×5 (04:07→22:35)
[2024-07-05 05:17] LABS: Add Manual Diff / Slide Review NO; Basophils Absolute Auto 0 /uL (0-100); Basophils Percent Auto 0.3 % (0-2); Eosinophils Absolute Auto 100 /uL (0-450); Eosinophils Percent Auto 1.2 % (2-4); Hematocrit 33.1 % (41-53); Hemoglobin 10.9 g/dL (13.5-17.5); Lymphocytes Absolute Auto 1000 /uL (1100-4500); Lymphocytes Percent Auto 9.1 % (25-40); Mean Corpuscular Hemoglobin 31.6 PG (26-34); Mean Corpuscular Volume 95.5 fL (80-100); Monocytes Absolute Auto 1600 /uL (0-900); Monocytes Percent Auto 13.5 % (3-14); Neutrophils Absolute Auto 8700 /uL (1500-7000); Neutrophils Percent Auto 75.9 % (50-75); Platelet Count 250 X10^3/uL (150-400); Red Blood Cell Count 3.46 X10^6/uL (4.5-5.9); White Blood Cell Count 11.5 X10^3/uL (4.5-11.0)
[2024-07-05 05:40] LABS: Alanine Aminotransferase 13 IU/L (<50); Albumin 2.9 g/dL (3.5-5.0); Alkaline Phosphatase 64 U/L (38-126); Aspartate Aminotransferase 22 IU/L (17-59); BUN Creatinine Ratio 41.7 (6-22); Bilirubin Total 0.5 mg/dL (0.2-1.3); Blood Urea Nitrogen 40 mg/dL (9-20); Calcium 8.6 mg/dL (8.4-10.2); Carbon Dioxide 30 mmol/L (22-32); Chloride 101 mmol/L (98-107); Estimated Glomerular Filt Rate > 60 mL/min (>60); Globulin 2.9 g/dL (1.7-4.1); Glucose 85 mg/dL (80-110); HEMOLYSIS < 15 (0-50); Magnesium 2.5 mg/dL (1.6-2.3); Potassium 3.2 mmol/L (3.4-5.1); Sodium 135 mmol/L (137-145); Total Protein 5.8 g/dL (6.3-8.2)
[2024-07-05] MEDS: SODIUM CHLORIDE 0.9% 1,000 ML 125 ML IV ×2 (06:31→19:49)
[2024-07-05] MEDS: ONDANSETRON 4 MG/2 ML INJ IV (07:50)
--- NOTE | 2024-07-05 07:59 | PM.PN.1 ---
Subjective Subjective Interval history: Interval summary: 83 M admitted with high grade bowel obstruction. Surgery put NG tube, likely gastrograffin. Has had symptoms x6 days, suspect unlikely to resolve but patient would really like to avoid surgery.? S:Abdomen feels better, no nausea or vomiting. No flatus. No dyspnea. Spoke with surgeon, Gastrografin challenge. Exam Vital Signs (past 8 hours): - 07/05/24 02:54 07/05/24 03:00 Temperature 99.4 F Pulse Rate 70 Respiratory Rate 16 Blood Pressure 130/70 Pulse Oximetry 94 95 Oxygen Delivery Method Room Air Oxygen Flow Rate 0 Oxygen Delivery Method Room Air Oxygen Flow Rate 0 Narrative Exam Narrative: NAD, alert and oriented. Fluent speech. Lungs are clear, normal rate and effort. Heart is regular, no murmur gallop or rub. Abdomen is soft, non distended. Extremities are free of edema. Objective Labs 07/05/24 04:55 07/05/24 04:55 Labs: Laboratory Results - last 24 hr 07/04/24 07/04/24 07/05/24 10:49 11:33 04:55 WBC 15.3 H 11.5 H RBC 4.08 L 3.46 L Hgb 12.9 L 10.9 L Hct 38.8 L 33.1 L MCV 95.0 95.5 MCH 31.7 31.6 MCHC 33.3 33.0 RDW 15.1 H 15.0 H Plt Count 298 250 Neut % (Auto) 80.2 H 75.9 H Lymph % (Auto) 7.8 L 9.1 L [place] % (Auto) 11.2 13.5 Eos % (Auto) 0.5 L 1.2 L Baso % (Auto) 0.3 0.3 Neut # (Auto) 58240 H 8700 H Lymph # (Auto) 1200 1000 L [place] # (Auto) 1700 H 1600 H Eos # (Auto) 100 100 Baso # (Auto) 100 0 Sodium 131 L 135 L Potassium 3.4 3.2 L Chloride 88 L 101 Carbon Dioxide 33 H 30 BUN 55 H 40 H Creatinine 1.24 0.96 Estimated GFR 58 L > 60 BUN/Creatinine Ratio 44.4 H 41.7 H Glucose 125 H 85 Calcium 10.2 8.6 Magnesium 2.3 2.5 H Total Bilirubin 0.8 0.5 AST 30 22 ALT 18 13 Alkaline Phosphatase 83 64 Total Creatine Kinase 32 L Troponin I < 0.012 Total Protein 7.0 5.8 L Albumin 3.9 2.9 L Globulin 3.1 2.9 Albumin/Globulin Ratio 1.3 1.0 Lipase 49 Ur Bilirubin Confirm Negative Urine RBC None seen Urine WBC None seen Ur Squamous Epith Cells None seen Urine Bacteria None seen Ur Culture Indicated? Cult not indicated Vol Urine Centrifuged 10ml (spun) PFSH Medical History History of anemia Unspecified disturbances of skin sensation Surgical History H/O exploratory laparotomy History of spinal fusion Social History household members: spouse Smoking Status: Former smoker alcohol intake: former Assessment & Plan Assessment & Plan narrative: 1. SBO secondary to adhesions. Present on admission and active. Seems improved. - NPO, IV fluids. CT scan showing a high grade obstruction. - appreciate general surgery consultation, discussed with surgeon whom will re-attempt NG tube placement. -Gastrografin today. 2. CLAUDIA, present on admission and resolved. - likely due to dehydration. Cr 1.24 on admit from 0.7 at baseline. Continue to follow. IV fluids ordered NS @125 for now. s/p 1L bolus in ER. 3. Severe acute protein malnutrition, present on admission and active. - recent 7lb weight loss, BMI 18.2 at age 83, appears very thin and malnourished. - will have nutrition evaluation, pending resolution of bowel obstruction noted above. 4. BPH, present on admission and stable. - continue flomax 5. HTN, present on admission and stable. - hold home irbesartan, propranolol, amlodipine for now. - restart some antihypertensives if patient becomes hypertensive. 6. Hypokalemia, new and active. - replete. PLAN: -Gastrografin today. -replace potassium. Code: Full, surrogate is patient's spouse DVT: SCDs for now, given possibility of surgery Time-Based Coding :: 20 min spent with patient and on the chart (including review of chart, obtaining history, exam, reviewing outside data, placing orders, documenting exam and treatment plan, and counseling patient) on 07/05. Quality VTE Deep Vein Thrombosis/Pulmonary Embolism Present on Admission: No
[2024-07-05] MEDS: POTASSIUM CHLORIDE IN WATER 10 MEQ/100 ML PIGGYBACK 100 MEQ IV ×4 (10:15→13:52)
--- NOTE | 2024-07-05 11:37 | DI.RAD.S_ITS ---
PROCEDURE: XR GASTROGRAFIN CHALLENGE COMPARISON: [facility], CT, CT ABDOMEN PELVIS W CON, 07/04/2024, 11:21. [facility], CR, XR CHEST 1V, 07/04/2024, 13:31. INDICATIONS: sbo FINDINGS: Single AP view of the abdomen demonstrates oral contrast opacifying the minimally distended stomach and proximal small bowel. There is persistent distension of visualized, opacified small bowel. Excreted contrast in the urinary bladder consistent with recent contrast administration of prior CT. No contrast identified in the colon. IMPRESSION: Persistent distension of proximal small bowel and stomach consistent with small-bowel obstruction. Dictated by: Vamshi Nolasco M.D. on 07/05/2024 at 18:49 Approved by: Vamshi Nolasco M.D. on 07/05/2024 at 18:52
--- NOTE | 2024-07-05 11:37 | PM.PN.1 ---
Subjective Subjective Date Patient Seen: 07/05/24 Time Patient Seen: 11:37 Interval history: No flatus or BM Bilious NGT output Exam Vital Signs (past 8 hours): - 07/05/24 07:00 07/05/24 07:00 07/05/24 07:00 Temperature 98.9 F Pulse Rate 73 Respiratory Rate 12 Blood Pressure 114/68 Pulse Oximetry 95 96 Oxygen Delivery Method Room Air Room Air Oxygen Flow Rate 0 0 07/05/24 11:00 Temperature Pulse Rate Respiratory Rate Blood Pressure Pulse Oximetry 96 Oxygen Delivery Method Room Air Oxygen Flow Rate 0 Oxygen Delivery Method Room Air Oxygen Flow Rate 0 Narrative Exam Narrative: Gen-Elderly man alert no distress Abdomen-Compressible, minimal distention Objective Labs 07/05/24 04:55 07/05/24 04:55 Labs: Laboratory Results - last 24 hr 07/04/24 07/05/24 11:33 04:55 WBC 11.5 H RBC 3.46 L Hgb 10.9 L Hct 33.1 L MCV 95.5 MCH 31.6 MCHC 33.0 RDW 15.0 H Plt Count 250 Neut % (Auto) 75.9 H Lymph % (Auto) 9.1 L [place] % (Auto) 13.5 Eos % (Auto) 1.2 L Baso % (Auto) 0.3 Neut # (Auto) 8700 H Lymph # (Auto) 1000 L [place] # (Auto) 1600 H Eos # (Auto) 100 Baso # (Auto) 0 Sodium 135 L Potassium 3.2 L Chloride 101 Carbon Dioxide 30 BUN 40 H Creatinine 0.96 Estimated GFR > 60 BUN/Creatinine Ratio 41.7 H Glucose 85 Calcium 8.6 Magnesium 2.5 H Total Bilirubin 0.5 AST 22 ALT 13 Alkaline Phosphatase 64 Total Protein 5.8 L Albumin 2.9 L Globulin 2.9 Albumin/Globulin Ratio 1.0 Ur Bilirubin Confirm Negative Urine RBC None seen Urine WBC None seen Ur Squamous Epith Cells None seen Urine Bacteria None seen Ur Culture Indicated? Cult not indicated Vol Urine Centrifuged 10ml (spun) PFSH Medical History History of anemia Unspecified disturbances of skin sensation Surgical History H/O exploratory laparotomy History of spinal fusion Social History household members: spouse Smoking Status: Former smoker alcohol intake: former Assessment & Plan Assessment and plan (1) Small bowel obstruction: Status: Acute Assessment & Plan narrative: cont NGT Gastrografin challenge Time-Based Coding :: [TOTAL MINUTES] spent with patient and on the chart (including review of chart, obtaining history, exam, reviewing outside data, placing orders, documenting exam and treatment plan, and counseling patient) on [DATE]. Quality VTE Deep Vein Thrombosis/Pulmonary Embolism Present on Admission: No
--- NOTE | 2024-07-05 13:32 | CM.DANOTE ---
DCP Assessment Note: Pt is a 83yo male, resident of [facility], is admitted for a small bowel obstruction. Pt lives in a condo with his spouse, Albina. Pt's Primary Care Provider is Dr. Monty Quinteros and insurance is Medicare, [employer]. Reviewed chart and team rounds for pt's medical status and initial discharge needs. Patient has a NG Tube at the moment and plan of care is still evolving, likely surgery, per rounds. DCP met w/patient at bedside; introduced self and role. Patient was found in bed, alert and oriented, cooperative with assessment. Pt confirmed living situation and good support in . Pt expressed preference in discharging home when medically stable. Pt declines any history of HH or SNF Rehab. Pt agreeable to HH if necessary upon discharge. Plan: Anticipating discharge home with spouse when medically stable, no needs identified at this time. CM team will follow closely for coordination of discharge plans. SINGH Echevarria Discharge Planning/Care Management CM Discharge Assessment Start: 07/05/24 13:31 Freq: Status: Active Protocol: Document 07/05/24 13:31 MW (Rec: 07/05/24 13:32 MW [id number]) Discharge Planning Assessment Assigned [employer] Operator ALONSO Little DPOA/Assigned Designee Name Albina, Spouse Contact Information [phone] Advance Directives? Yes Advance Directives on File No History Provided By Patient,Medical Record Has Patient been admitted in last 30 No days? Prior Living Arrangements Apartment/Condo Household Members spouse Comment With dog, Elvira. Type of transporation used prior to Drives own vehicle admit Independent with ADL's Yes Is patient alert and oriented? Yes Caregiver for Another No Barriers to Discharge No Whiteboard Updated in Patient Room with Yes name and ext. # of [employer] Machine Operator Comment [phone] Please Provide Date Initial DC 07/05/24 Assessment Was Performed Next Review Type Continued Stay Review
[2024-07-05] MEDS: LORazepam 2 MG/ML INJ 0.5 MG IV ×2 (16:23→22:50)
[2024-07-06] VITALS (9 sets, daily range): BP systolic 153–168; BP diastolic 78–85; PULSE 71–74; RESP 16–18; TEMP 36.3–36.8; O2SAT 96–100
[2024-07-06] MEDS: SODIUM CHLORIDE 0.9% 1,000 ML 125 ML IV ×3 (03:45→19:44)
[2024-07-06] MEDS: HYDROMORPHONE 0.5 MG INJ IV ×4 (03:48→15:51)
--- NOTE | 2024-07-06 06:00 | DI.RAD.S_ITS ---
PROCEDURE: XR ABDOMEN 1V INDICATIONS: f/u gastrografin TECHNIQUE: One view of the abdomen acquired. COMPARISON: [facility], CT, CT ABDOMEN PELVIS W CON, 07/04/2024, 11:21. [facility], CR, XR ABDOMEN 1V, 07/06/2024, 8:21. [facility], CR, XR GASTROGRAFIN CHALLENGE, 07/05/2024, 15:55. FINDINGS: Surgical changes and devices: None. Bowel: A catheter is present quelling 9 self with its tip at the GE junction. A small amount of contrast is present in the proximal small bowel, which is dilated, consistent with small bowel obstruction. Soft tissues: No suspicious abdominal calcifications. Visualized solid organ contours appear normal in size. Bones: No suspicious bony lesions. IMPRESSION: 1. Tip of NG tube coiled on itself and points to the GE junction. 2. Small bowel obstruction. Comment: Preliminary interpretation provided by [facility]. Preliminary interpreting physician notified the patient's nurse on 07/06/2024 at 0720 hours of the NG tube position. Dictated by: Tico Garcia M.D. on 07/06/2024 at 9:50 Approved by: Tico Garcia M.D. on 07/06/2024 at 9:55
[2024-07-06 06:05] LABS: Add Manual Diff / Slide Review NO; Basophils Absolute Auto 0 /uL (0-100); Basophils Percent Auto 0.1 % (0-2); Eosinophils Absolute Auto 100 /uL (0-450); Eosinophils Percent Auto 0.6 % (2-4); Hematocrit 35.4 % (41-53); Hemoglobin 11.8 g/dL (13.5-17.5); Lymphocytes Absolute Auto 1000 /uL (1100-4500); Lymphocytes Percent Auto 6.4 % (25-40); Mean Corpuscular HGB Conc 33.2 % (30-36); Mean Corpuscular Hemoglobin 31.9 PG (26-34); Mean Corpuscular Volume 95.9 fL (80-100); Monocytes Absolute Auto 1800 /uL (0-900); Monocytes Percent Auto 11.1 % (3-14); Neutrophils Absolute Auto 13300 /uL (1500-7000); Neutrophils Percent Auto 81.8 % (50-75); Platelet Count 298 X10^3/uL (150-400); Red Blood Cell Count 3.69 X10^6/uL (4.5-5.9); Red Cell Distribution Width 15.2 % (11.6-14.8); White Blood Cell Count 16.3 X10^3/uL (4.5-11.0)
[2024-07-06 06:18] LABS: Alanine Aminotransferase 14 IU/L (<50); Albumin 3.2 g/dL (3.5-5.0); Albumin Globulin Ratio 1.1 (1.0-2.8); Alkaline Phosphatase 83 U/L (38-126); Aspartate Aminotransferase 19 IU/L (17-59); BUN Creatinine Ratio 39.3 (6-22); Bilirubin Total 0.5 mg/dL (0.2-1.3); Blood Urea Nitrogen 35 mg/dL (9-20); Calcium 9.1 mg/dL (8.4-10.2); Carbon Dioxide 26 mmol/L (22-32); Chloride 106 mmol/L (98-107); Estimated Glomerular Filt Rate > 60 mL/min (>60); Globulin 2.9 g/dL (1.7-4.1); Glucose 79 mg/dL (80-110); HEMOLYSIS < 15 (0-50); Magnesium 2.7 mg/dL (1.6-2.3); Potassium 3.7 mmol/L (3.4-5.1); Sodium 144 mmol/L (137-145); Total Protein 6.1 g/dL (6.3-8.2)
[2024-07-06] MEDS: LORazepam 2 MG/ML INJ 0.5 MG IV ×3 (07:09→22:00)
--- NOTE | 2024-07-06 08:16 | DI.RAD.S_ITS ---
PROCEDURE: XR ABDOMEN 1V INDICATIONS: re-verify NG placement TECHNIQUE: One view of the abdomen acquired. COMPARISON: [facility], CR, XR ABDOMEN 1V, 07/06/2024, 6:24. FINDINGS: Surgical changes and devices: NG tube loops in the duodenal C-loop with its tip pointing towards the GE junction. Bowel: High-grade proximal small bowel obstruction with Gastrografin noted in proximal small bowel loops. Soft tissues: No suspicious abdominal calcifications. Visualized solid organ contours appear normal in size. Bones: No suspicious bony lesions. IMPRESSION: Continued high-grade proximal small bowel obstruction. NG tube tip is slightly improved, but still points towards the GE junction. Dictated by: Tico Garcia M.D. on 07/06/2024 at 9:56 Approved by: Tico Garcia M.D. on 07/06/2024 at 9:57
--- NOTE | 2024-07-06 08:37 | PM.PN.1 ---
Subjective Subjective Interval history: Interval summary: 83 M admitted with high grade bowel obstruction. Surgery put NG tube, likely gastrograffin. Has had symptoms x6 days, suspect unlikely to resolve but patient would really like to avoid surgery.? S: He was comfortable, he was receiving Dilaudid and Ativan. Spoke with the surgeon, Dr. Diggs. We will give him another 24 hours to see if NG tube decompression improves his status at all. Otherwise he was tentatively on the schedule for surgery tomorrow, July 07. Exam Vital Signs (past 8 hours): - 07/06/24 02:00 07/06/24 02:00 07/06/24 06:00 Temperature 97.4 F L Pulse Rate 74 72 Respiratory Rate 18 16 Blood Pressure 168/83 H 167/78 H Pulse Oximetry 96 96 100 Oxygen Delivery Method Room Air Oxygen Flow Rate 0 07/06/24 06:00 Temperature Pulse Rate Respiratory Rate Blood Pressure Pulse Oximetry 100 Oxygen Delivery Method Room Air Oxygen Flow Rate Oxygen Delivery Method Room Air Oxygen Flow Rate 0 Narrative Exam Narrative: NAD, alert and oriented. Fluent speech. NGT. Lungs are clear, normal rate and effort. Heart is regular, no murmur gallop or rub. Abdomen is soft, non distended. Extremities are free of edema. Objective Labs 07/06/24 05:30 07/06/24 05:30 Labs: Laboratory Results - last 24 hr 07/06/24 05:30 WBC 16.3 H RBC 3.69 L Hgb 11.8 L Hct 35.4 L MCV 95.9 MCH 31.9 MCHC 33.2 RDW 15.2 H Plt Count 298 Neut % (Auto) 81.8 H Lymph % (Auto) 6.4 L [place] % (Auto) 11.1 Eos % (Auto) 0.6 L Baso % (Auto) 0.1 Neut # (Auto) 26307 H Lymph # (Auto) 1000 L [place] # (Auto) 1800 H Eos # (Auto) 100 Baso # (Auto) 0 Sodium 144 Potassium 3.7 Chloride 106 Carbon Dioxide 26 BUN 35 H Creatinine 0.89 Estimated GFR > 60 BUN/Creatinine Ratio 39.3 H Glucose 79 L Calcium 9.1 Magnesium 2.7 H Total Bilirubin 0.5 AST 19 ALT 14 Alkaline Phosphatase 83 Total Protein 6.1 L Albumin 3.2 L Globulin 2.9 Albumin/Globulin Ratio 1.1 PFSH Medical History History of anemia Unspecified disturbances of skin sensation Surgical History H/O exploratory laparotomy History of spinal fusion Social History household members: spouse Smoking Status: Former smoker alcohol intake: former Assessment & Plan Assessment & Plan narrative: 1. SBO secondary to adhesions. Present on admission and active. Seems improved. - NPO, IV fluids. CT scan showing a high grade obstruction. - appreciate general surgery consultation, discussed with surgeon whom will re-attempt NG tube placement. -Gastrografin today. 2. CLAUDIA, present on admission and resolved. - likely due to dehydration. Cr 1.24 on admit from 0.7 at baseline. Continue to follow. IV fluids ordered NS @125 for now. s/p 1L bolus in ER. 3. Severe acute protein malnutrition, present on admission and active. - recent 7lb weight loss, BMI 18.2 at age 83, appears very thin and malnourished. - will have nutrition evaluation, pending resolution of bowel obstruction noted above. 4. BPH, present on admission and stable. - continue flomax 5. HTN, present on admission and stable. - hold home irbesartan, propranolol, amlodipine for now. - restart some antihypertensives if patient becomes hypertensive. 6. Hypokalemia, new and active. - replete. PLAN: -Gastrografin yesterday. Repeat X-Ray to assess gastrografin. -replace potassium. -discuss with surgery. NGT for another night, surgery 07/07 if no better. Code: Full, surrogate is patient's spouse DVT: SCDs for now, given possibility of surgery Time-Based Coding :: 20 min spent with patient and on the chart (including review of chart, obtaining history, exam, reviewing outside data, placing orders, documenting exam and treatment plan, and counseling patient) on 07/06. Quality VTE Deep Vein Thrombosis/Pulmonary Embolism Present on Admission: No
--- NOTE | 2024-07-06 11:02 | P.PN_ITS ---
Subjective Subjective Date Patient Seen: 07/06/24 Time Patient Seen: 11:02 Interval history: Darwin is about the same as yesterday. Still no real bowel movement or flatus. The Gastrografin does not seem to have advanced beyond proximal small bowel Exam Vital Signs (past 8 hours): - 07/06/24 06:00 07/06/24 06:00 07/06/24 08:00 Temperature 97.8 F Pulse Rate 72 71 Respiratory Rate 16 16 Blood Pressure 167/78 H 153/78 H Pulse Oximetry 100 100 100 Oxygen Delivery Method Room Air Oxygen Delivery Method Room Air Oxygen Flow Rate 0 Narrative Exam Narrative: Soft, nontender Objective Labs 07/06/24 05:30 07/06/24 05:30 Labs: Laboratory Results - last 24 hr 07/06/24 05:30 WBC 16.3 H RBC 3.69 L Hgb 11.8 L Hct 35.4 L MCV 95.9 MCH 31.9 MCHC 33.2 RDW 15.2 H Plt Count 298 Neut % (Auto) 81.8 H Lymph % (Auto) 6.4 L [place] % (Auto) 11.1 Eos % (Auto) 0.6 L Baso % (Auto) 0.1 Neut # (Auto) 87871 H Lymph # (Auto) 1000 L [place] # (Auto) 1800 H Eos # (Auto) 100 Baso # (Auto) 0 Sodium 144 Potassium 3.7 Chloride 106 Carbon Dioxide 26 BUN 35 H Creatinine 0.89 Estimated GFR > 60 BUN/Creatinine Ratio 39.3 H Glucose 79 L Calcium 9.1 Magnesium 2.7 H Total Bilirubin 0.5 AST 19 ALT 14 Alkaline Phosphatase 83 Total Protein 6.1 L Albumin 3.2 L Globulin 2.9 Albumin/Globulin Ratio 1.1 PFSH Medical History History of anemia Unspecified disturbances of skin sensation Surgical History H/O exploratory laparotomy History of spinal fusion Social History household members: spouse Smoking Status: Former smoker alcohol intake: former Assessment & Plan Assessment and plan (1) Small bowel obstruction: Status: Acute Plan No significant improvement after Gastrografin. Although Darwin is still quite certain that he wants to avoid surgery I had a moustapha discussion with him. If he has not opened up by tomorrow morning the odds of nonsurgical resolution vomit. I recommend proceeding to surgery tomorrow if he has not opened. Time-Based Coding :: [TOTAL MINUTES] spent with patient and on the chart (including review of chart, obtaining history, exam, reviewing outside data, placing orders, documenting exam and treatment plan, and counseling patient) on [DATE]. Quality VTE Deep Vein Thrombosis/Pulmonary Embolism Present on Admission: No
[2024-07-07] VITALS (12 sets, daily range): BP systolic 145–172; BP diastolic 68–93; PULSE 65–82; RESP 16–18; TEMP 36.3–36.6; O2SAT 95–99
[2024-07-07] MEDS: ONDANSETRON 4 MG/2 ML INJ IV ×2 (00:53→21:59)
[2024-07-07] MEDS: SODIUM CHLORIDE 0.9% 1,000 ML 125 ML IV ×3 (03:51→21:55)
[2024-07-07 05:34] LABS: Add Manual Diff / Slide Review NO; Basophils Absolute Auto 0 /uL (0-100); Basophils Percent Auto 0.2 % (0-2); Eosinophils Absolute Auto 100 /uL (0-450); Eosinophils Percent Auto 0.6 % (2-4); Hematocrit 34.3 % (41-53); Hemoglobin 11.4 g/dL (13.5-17.5); Lymphocytes Absolute Auto 1100 /uL (1100-4500); Lymphocytes Percent Auto 6.2 % (25-40); Mean Corpuscular HGB Conc 33.2 % (30-36); Mean Corpuscular Hemoglobin 31.7 PG (26-34); Mean Corpuscular Volume 95.5 fL (80-100); Monocytes Absolute Auto 1500 /uL (0-900); Monocytes Percent Auto 8.6 % (3-14); Neutrophils Absolute Auto 15100 /uL (1500-7000); Neutrophils Percent Auto 84.4 % (50-75); Platelet Count 318 X10^3/uL (150-400); Red Blood Cell Count 3.59 X10^6/uL (4.5-5.9); Red Cell Distribution Width 15.3 % (11.6-14.8); White Blood Cell Count 17.9 X10^3/uL (4.5-11.0)
[2024-07-07 05:41] LABS: Alanine Aminotransferase 12 IU/L (<50); Alkaline Phosphatase 85 U/L (38-126); Aspartate Aminotransferase 19 IU/L (17-59); BUN Creatinine Ratio 34.7 (6-22); Bilirubin Total 0.5 mg/dL (0.2-1.3); Blood Urea Nitrogen 25 mg/dL (9-20); Calcium 8.6 mg/dL (8.4-10.2); Carbon Dioxide 24 mmol/L (22-32); Chloride 111 mmol/L (98-107); Estimated Glomerular Filt Rate > 60 mL/min (>60); Globulin 2.9 g/dL (1.7-4.1); Glucose 85 mg/dL (80-110); HEMOLYSIS < 15 (0-50); Magnesium 2.5 mg/dL (1.6-2.3); Potassium 3.4 mmol/L (3.4-5.1); Sodium 143 mmol/L (137-145); Total Protein 5.9 g/dL (6.3-8.2)
[2024-07-07] MEDS: LORazepam 2 MG/ML INJ 0.5 MG IV ×3 (06:03→20:04)
[2024-07-07] MEDS: POTASSIUM CHLORIDE IN WATER 10 MEQ/100 ML PIGGYBACK 100 MEQ IV ×2 (07:35→09:24)
--- NOTE | 2024-07-07 07:43 | PM.PN.1 ---
Subjective Subjective Interval history: S: Less abdominal pain, some flatus overnight. Still belching a lot. No nausea currently. Pain is 2/10. Exam Vital Signs (past 8 hours): - 07/07/24 00:00 07/07/24 02:00 07/07/24 04:00 Temperature 97.6 F 97.4 F L Pulse Rate 82 72 Respiratory Rate 18 18 Blood Pressure 172/93 H 170/83 H Pulse Oximetry 98 98 95 Oxygen Delivery Method Room Air Oxygen Flow Rate 0 0 07/07/24 06:00 Temperature Pulse Rate Respiratory Rate Blood Pressure Pulse Oximetry 95 Oxygen Delivery Method Room Air Oxygen Flow Rate Oxygen Delivery Method Room Air Oxygen Flow Rate 0 Narrative Exam Narrative: NAD, alert and oriented. Fluent speech. Lungs are clear, normal rate and effort. Heart is regular, no murmur gallop or rub. Abdomen is soft, non distended. Nontender. Extremities are free of edema. Objective Labs 07/07/24 05:15 07/07/24 05:15 Labs: Laboratory Results - last 24 hr 07/07/24 05:15 WBC 17.9 H RBC 3.59 L Hgb 11.4 L Hct 34.3 L MCV 95.5 MCH 31.7 MCHC 33.2 RDW 15.3 H Plt Count 318 Neut % (Auto) 84.4 H Lymph % (Auto) 6.2 L [place] % (Auto) 8.6 Eos % (Auto) 0.6 L Baso % (Auto) 0.2 Neut # (Auto) 69395 H Lymph # (Auto) 1100 [place] # (Auto) 1500 H Eos # (Auto) 100 Baso # (Auto) 0 Sodium 143 Potassium 3.4 Chloride 111 H Carbon Dioxide 24 BUN 25 H Creatinine 0.72 Estimated GFR > 60 BUN/Creatinine Ratio 34.7 H Glucose 85 Calcium 8.6 Magnesium 2.5 H Total Bilirubin 0.5 AST 19 ALT 12 Alkaline Phosphatase 85 Total Protein 5.9 L Albumin 3.0 L Globulin 2.9 Albumin/Globulin Ratio 1.0 PFSH Medical History History of anemia Unspecified disturbances of skin sensation Surgical History H/O exploratory laparotomy History of spinal fusion Social History household members: spouse Smoking Status: Former smoker alcohol intake: former Assessment & Plan Assessment & Plan narrative: 1. SBO secondary to adhesions. Present on admission and active. Seems improved. - NPO, IV fluids. CT scan showing a high grade obstruction. - appreciate general surgery consultation, discussed with surgeon whom will re-attempt NG tube placement. -Gastrografin today. 2. CLAUDIA, present on admission and resolved. - likely due to dehydration. Cr 1.24 on admit from 0.7 at baseline. Continue to follow. IV fluids ordered NS @125 for now. s/p 1L bolus in ER. 3. Severe acute protein malnutrition, present on admission and active. - recent 7lb weight loss, BMI 18.2 at age 83, appears very thin and malnourished. - will have nutrition evaluation, pending resolution of bowel obstruction noted above. 4. BPH, present on admission and stable. - continue flomax 5. HTN, present on admission and stable. - hold home irbesartan, propranolol, amlodipine for now. - restart some antihypertensives if patient becomes hypertensive. 6. Hypokalemia, new and active. - replete. PLAN: -surgery today for bowel obstruction. After discussing with Dr. Diggs, surgery will be delayed and repeat CT of the abdomen will be obtained. -continue analgesia and IV fluids. Time-Based Coding :: 25 min spent with patient and on the chart (including review of chart, obtaining history, exam, reviewing outside data, placing orders, documenting exam and treatment plan, and counseling patient) on 07/07. Quality VTE Deep Vein Thrombosis/Pulmonary Embolism Present on Admission: No
--- NOTE | 2024-07-07 09:11 | DI.CT.S_ITS ---
PROCEDURE: CT ABDOMEN PELVIS W CON INDICATIONS: small bowel obstruction TECHNIQUE: After the administration of intravenous contrast, axial sections acquired from the lung bases to the pubic symphysis. Coronal and sagittal reformats were performed. For radiation dose reduction, the following was used: automated exposure control, adjustment of mA and/or kV according to patient size. COMPARISON: [facility], CT, CT ABDOMEN PELVIS W CON, 07/04/2024, 11:21. FINDINGS: Lower thorax: The lung bases are clear. Heart size normal. No hiatal hernia. Liver: Normal in size and attenuation. No contour deformity present. Biliary system: No calcified cholelithiasis or pericholecystic inflammation. No intra or extrahepatic bile duct dilatation. Pancreas: Unremarkable without mass or inflammation evident. Spleen: Normal in size and density. Adrenals: Normal morphology and density. Reproductive system: Unremarkable as visualized. Urinary system: Normal renal size and attenuation. No renal calculi, hydronephrosis, or solid mass present. Urinary bladder unremarkable. Gastrointestinal system: Nasogastric tube in the distended stomach. Small bowel is massively dilated up to 5.7 cm, similar to the prior exam. Distal small bowel completely decompressed. Transition point in the right flank. There is oral contrast in the right colon Appendix: No findings to suggest acute appendicitis. Peritoneal spaces: No mesenteric or retroperitoneal adenopathy. No free air. No free fluid. Vasculature: The IVC, aorta and iliac vasculature are unremarkable. Abdominal wall: Abdominal wall intact without evidence of ventral or inguinal hernias. Musculoskeletal: Isthmic spondylolisthesis at L5-S1. Degenerative disc disease and arthropathy. IMPRESSION: Persistent small-bowel obstruction. Proximal small bowel is massively dilated. Nevertheless, there is oral contrast in the right colon, new from the prior. Nasogastric tube in descended stomach Approved by: Nigel Camacho M.D. on 07/07/2024 at 11:34
--- NOTE | 2024-07-07 09:11 | SUR.HOLD ---
At 0815, this nurse went to transport patient to the surgical services area. Patient tells nurse that he's not sure if he wants surgery and that he does not want to schuler things. Patient states he has been passing a little bit of gas but has not had a bowel movement. Patient desires to speak to Dr Diggs. Notified OR surgical team and Dr Diggs.
--- NOTE | 2024-07-07 09:17 | PM.PN.1 ---
Subjective Subjective Date Patient Seen: 07/07/24 Time Patient Seen: 09:17 Interval history: Darwin has passed some flatus last night this morning. He wants to continue to try to avoid surgery. Exam Vital Signs (past 8 hours): - 07/07/24 02:00 07/07/24 04:00 07/07/24 06:00 Temperature 97.4 F L Pulse Rate 72 Respiratory Rate 18 Blood Pressure 170/83 H Pulse Oximetry 98 95 95 Oxygen Delivery Method Room Air Room Air Oxygen Flow Rate 0 07/07/24 07:16 Temperature 97.9 F Pulse Rate 78 Respiratory Rate 18 Blood Pressure 163/85 H Pulse Oximetry 96 Oxygen Delivery Method Oxygen Flow Rate Oxygen Delivery Method Room Air Oxygen Flow Rate 0 Const General: No acute distress Resp Effort & Inspection: normal respiratory effort Objective Labs 07/07/24 05:15 07/07/24 05:15 Labs: Laboratory Results - last 24 hr 07/07/24 05:15 WBC 17.9 H RBC 3.59 L Hgb 11.4 L Hct 34.3 L MCV 95.5 MCH 31.7 MCHC 33.2 RDW 15.3 H Plt Count 318 Neut % (Auto) 84.4 H Lymph % (Auto) 6.2 L [place] % (Auto) 8.6 Eos % (Auto) 0.6 L Baso % (Auto) 0.2 Neut # (Auto) 11026 H Lymph # (Auto) 1100 [place] # (Auto) 1500 H Eos # (Auto) 100 Baso # (Auto) 0 Sodium 143 Potassium 3.4 Chloride 111 H Carbon Dioxide 24 BUN 25 H Creatinine 0.72 Estimated GFR > 60 BUN/Creatinine Ratio 34.7 H Glucose 85 Calcium 8.6 Magnesium 2.5 H Total Bilirubin 0.5 AST 19 ALT 12 Alkaline Phosphatase 85 Total Protein 5.9 L Albumin 3.0 L Globulin 2.9 Albumin/Globulin Ratio 1.0 PFSH Medical History History of anemia Unspecified disturbances of skin sensation Surgical History H/O exploratory laparotomy History of spinal fusion Social History household members: spouse Smoking Status: Former smoker alcohol intake: former Assessment & Plan Assessment and plan (1) Small bowel obstruction: Status: Acute Plan Darwin is fairly certain he does not want to proceed with exploratory laparotomy today. He would like to try to avoid surgery if at all possible. Darwin in his discussed the options with me. They would be interested in pursuing further imaging. I recommended we perform a CT scan if we want to obtain more information about the state of his small bowel obstruction. I informed her that the OR team would be released for the day unless he develops any acute changes he was condition. If the imaging shows persistent obstruction we would proceed with surgery tomorrow. Time-Based Coding :: [TOTAL MINUTES] spent with patient and on the chart (including review of chart, obtaining history, exam, reviewing outside data, placing orders, documenting exam and treatment plan, and counseling patient) on [DATE]. Quality VTE Deep Vein Thrombosis/Pulmonary Embolism Present on Admission: No
[2024-07-07] MEDS: HYDROMORPHONE 0.5 MG INJ IV ×4 (09:25→20:05)
--- NOTE | 2024-07-07 12:11 | PC.NURSE ---
Pt down to CT for repeat scan. Patient priti. well. Post re-connection of int. suction patient had a rapid drain of GI fluids (light green) of 1000+, will continue to watch closely. Reported drainage to hospitalist, expressed concerns for shift in electrolyte imbalance. Provider states he will message Dr. Diggs.
[2024-07-08] VITALS (23 sets, daily range): BP systolic 132–183; BP diastolic 60–103; PULSE 61–82; RESP 12–18; TEMP 35.9–36.8; O2SAT 96–99; BMI 18.2
[2024-07-08] MEDS: HYDROMORPHONE 0.5 MG INJ IV ×6 (02:55→22:56)
[2024-07-08] MEDS: ONDANSETRON 4 MG/2 ML INJ IV (05:44)
[2024-07-08] MEDS: SODIUM CHLORIDE 0.9% 1,000 ML 125 ML IV ×2 (05:44→18:48)
--- NOTE | 2024-07-08 07:15 | PM.PN.1 ---
Subjective Subjective Interval history: SBO with surgery planned for today. S: Comfortable with NG tube to suction. No flatus. Recommendation is for surgery today for small bowel obstruction. Exam Vital Signs (past 8 hours): - 07/08/24 00:40 07/08/24 03:00 07/08/24 04:35 Temperature 98.2 F 97.3 F L Pulse Rate 63 61 Respiratory Rate 18 16 Blood Pressure 150/74 H 132/75 Pulse Oximetry 97 96 98 Oxygen Delivery Method Room Air Oxygen Flow Rate 0 0 0 Oxygen Delivery Method Room Air Oxygen Flow Rate 0 Narrative Exam Narrative: NAD, alert and oriented. Fluent speech. NG tube in place Lungs are clear, normal rate and effort. Heart is regular, no murmur gallop or rub. Abdomen is soft, non distended. Not tender, hypoactive bowel tones. Extremities are free of edema. Objective Labs 07/08/24 07:20 07/08/24 07:20 [facility] Medical History History of anemia Unspecified disturbances of skin sensation Surgical History H/O exploratory laparotomy History of spinal fusion Social History household members: spouse Smoking Status: Former smoker alcohol intake: former Assessment & Plan Assessment & Plan narrative: 1. SBO secondary to adhesions. Present on admission and active. Not improving. - surgery today. 2. CLAUDIA, present on admission and resolved. - likely due to dehydration. Cr 1.24 on admit from 0.7 at baseline. 3. Severe acute protein malnutrition, present on admission and active. - recent 7lb weight loss, BMI 18.2 at age 83, appears very thin and malnourished. 4. BPH, present on admission and stable. - continue flomax as able. 5. HTN, present on admission and stable. - hold home irbesartan, propranolol, amlodipine for now. - restart some antihypertensives if patient becomes hypertensive. 6. Hypokalemia, new and improving. - replete as needed PLAN: -surgery today for bowel obstruction. -continue analgesia and IV fluids. SOPHY: 3-4 more days after surgery. Met with the patient was in in the room. Time-Based Coding :: 25 min spent with patient and on the chart (including review of chart, obtaining history, exam, reviewing outside data, placing orders, documenting exam and treatment plan, and counseling patient) on 07/08. Quality VTE Deep Vein Thrombosis/Pulmonary Embolism Present on Admission: No
[2024-07-08 07:33] LABS: Add Manual Diff / Slide Review NO; Basophils Absolute Auto 100 /uL (0-100); Basophils Percent Auto 0.5 % (0-2); Eosinophils Absolute Auto 200 /uL (0-450); Eosinophils Percent Auto 1.1 % (2-4); Hematocrit 32.6 % (41-53); Hemoglobin 10.8 g/dL (13.5-17.5); Lymphocytes Absolute Auto 1300 /uL (1100-4500); Lymphocytes Percent Auto 7.2 % (25-40); Mean Corpuscular HGB Conc 33.1 % (30-36); Mean Corpuscular Hemoglobin 31.4 PG (26-34); Mean Corpuscular Volume 95.1 fL (80-100); Monocytes Absolute Auto 1200 /uL (0-900); Neutrophils Absolute Auto 14700 /uL (1500-7000); Neutrophils Percent Auto 84.2 % (50-75); Platelet Count 282 X10^3/uL (150-400); Red Blood Cell Count 3.42 X10^6/uL (4.5-5.9); Red Cell Distribution Width 15.1 % (11.6-14.8); White Blood Cell Count 17.4 X10^3/uL (4.5-11.0)
[2024-07-08 08:04] LABS: Alanine Aminotransferase 12 IU/L (<50); Albumin 2.6 g/dL (3.5-5.0); Alkaline Phosphatase 75 U/L (38-126); Aspartate Aminotransferase 19 IU/L (17-59); BUN Creatinine Ratio 26.9 (6-22); Bilirubin Total 0.5 mg/dL (0.2-1.3); Blood Urea Nitrogen 18 mg/dL (9-20); Calcium 8.1 mg/dL (8.4-10.2); Carbon Dioxide 22 mmol/L (22-32); Chloride 112 mmol/L (98-107); Estimated Glomerular Filt Rate > 60 mL/min (>60); Globulin 2.6 g/dL (1.7-4.1); Glucose 75 mg/dL (80-110); HEMOLYSIS < 15 (0-50); Potassium 3.3 mmol/L (3.4-5.1); Sodium 142 mmol/L (137-145); Total Protein 5.2 g/dL (6.3-8.2)
[2024-07-08] MEDS: LORazepam 2 MG/ML INJ 0.5 MG IV ×3 (08:21→23:21)
--- NOTE | 2024-07-08 08:49 | PM.PN.1 ---
Subjective Subjective Date Patient Seen: 07/08/24 Time Patient Seen: 08:49 Interval history: CT scan yesterday showed persistent small bowel obstruction although there is a small amount Gastrografin in the right colon. Darwin states he has had some more flatus this morning and yesterday evening. No bowel movement. Exam Vital Signs (past 8 hours): - 07/08/24 03:00 07/08/24 04:35 Temperature 97.3 F L Pulse Rate 61 Respiratory Rate 16 Blood Pressure 132/75 Pulse Oximetry 96 98 Oxygen Delivery Method Room Air Oxygen Flow Rate 0 0 Oxygen Delivery Method Room Air Oxygen Flow Rate 0 Narrative Exam Narrative: Abdomen is soft nontender Objective Labs 07/08/24 07:20 07/08/24 07:20 Labs: Laboratory Results - last 24 hr 07/08/24 07:20 WBC 17.4 H RBC 3.42 L Hgb 10.8 L Hct 32.6 L MCV 95.1 MCH 31.4 MCHC 33.1 RDW 15.1 H Plt Count 282 Neut % (Auto) 84.2 H Lymph % (Auto) 7.2 L [place] % (Auto) 7.0 Eos % (Auto) 1.1 L Baso % (Auto) 0.5 Neut # (Auto) 33761 H Lymph # (Auto) 1300 [place] # (Auto) 1200 H Eos # (Auto) 200 Baso # (Auto) 100 Sodium 142 Potassium 3.3 L Chloride 112 H Carbon Dioxide 22 BUN 18 Creatinine 0.67 Estimated GFR > 60 BUN/Creatinine Ratio 26.9 H Glucose 75 L Calcium 8.1 L Total Bilirubin 0.5 AST 19 ALT 12 Alkaline Phosphatase 75 Total Protein 5.2 L Albumin 2.6 L Globulin 2.6 Albumin/Globulin Ratio 1.0 [facility] Medical History History of anemia Unspecified disturbances of skin sensation Surgical History H/O exploratory laparotomy History of spinal fusion Social History household members: spouse Smoking Status: Former smoker alcohol intake: former Assessment & Plan Assessment and plan (1) Small bowel obstruction: Status: Acute Plan Although he has had some flatus and there is some Gastrografin in the right colon I expressed my opinion to Darwin that I do not think he is going to get better without surgery. He needs to talk to his before he can consent to surgery. I will check back with him later this morning or at lunchtime to see if he was willing to consent to surgery. Time-Based Coding :: [TOTAL MINUTES] spent with patient and on the chart (including review of chart, obtaining history, exam, reviewing outside data, placing orders, documenting exam and treatment plan, and counseling patient) on [DATE]. Quality VTE Deep Vein Thrombosis/Pulmonary Embolism Present on Admission: No
[2024-07-08] MEDS: POTASSIUM CHLORIDE IN WATER 10 MEQ/100 ML PIGGYBACK 100 MEQ IV ×4 (10:02→13:22)
--- NOTE | 2024-07-08 10:37 | DIET.CONS ---
Dietary Consultation Note Admission Date: 07/04/2024 12:38 Assessment: 83 y M admitted for small bowel obstruction. Nutrition consulted for parenteral nutrition. Met w/ pt and spouse at bedside. Reports unable to keep any food down since 06/28 and noticeable weight loss of 7 lb in 1 week. Nutrition focused physical exam performed: -Moderate muscle loss temporalis, pectoralis major, deltoid, trapezius -Severe muscle loss interosseous -Moderate subcutaneous fat loss buccal and orbital fat pads, triceps Pt at risk of refeeding syndrome. Pt is vegan. Reports protein in diet (when eating) usually comes from legumes, soy, nuts and seeds. Maintaining a vegan diet is important to him and reports he would like additional resources about this diet at a later point. Ht: 170.18 cm Wt: 52.844 kg BMI: 18.2 UBW: 55.45 kg per pt (-4.7% weight loss in 1 week, severe) Last BM: 06/29/24 (07/04/24 14:52) MNA: 8 Deni Score: 19 Diet: 07/04/24 10:47 NPO Diet Diet Modifications: NPO Type: NPO except for Meds Labs: RBC 3.42 X10^6/uL (4.5-5.9) L 07/08/24 07:20 Hgb 10.8 g/dL (13.5-17.5) L 07/08/24 07:20 Hct 32.6 % (41-53) L 07/08/24 07:20 Creatinine 0.67 mg/dL (0.66-1.25) 07/08/24 07:20 Nutrition Diagnosis: Severe acute Protein Calorie Malnutrition r/t alterations in GI tract as evidenced by small bowel obstruction, 4.7% weight loss in 1 week (severe), moderate muscle mass loss (temples, pectoralis & deltoid, trapezius, interosseous), moderate subcutaneous fat loss (buccal and orbital fat pads, triceps), <50% of estimated energy needs for 10 days, BMI underweight for age (18.2). The patient is at much higher risk for medical and surgical complications because of their malnutrition. This increases the difficulty and complexity of medical and surgical interventions and increases the chances of poor outcomes such as morbidity and mortality. Interventions: 1. Recc continuous TPN as follows: Day 1: 20 mL/hr of Clinimix 5/20 for first 24 hours. If pt is tolerating with no signs of refeeding, advance to day 2. Day 2: 1 L Clinimix 5/20 running at 42 mL/hr. If pt is tolerating with no signs of refeeding, advance to day 3. Day 3: Goal rate of 1.5 L Clinimix 5/20 at 62 mL/h with 250 mL IVFE 3x/wk. Goal rate with lipids provides 1534 kcals (85% EER) and 75 g protein (94% EER). 2. Recc Mg, K+, phos labs BID for first 3 days 3. Recc 100 mg thiamine for the first 5 days EER: 1800 kcals (35 kcals/kg per BMI) 80 g protein (1.5 g/kg per PCM) Monitoring/Evaluations: start of TPN, TPN rate, labs Electronically Signed by: Ellen Grove 07/08/24 10:37 Clinical Dietitian [address] [id number]
--- NOTE | 2024-07-08 13:32 | PM.EVENT ---
Event Note Date Patient Seen: 07/08/24 Time Patient Seen: 12:22 Event Note (Rapid Response, Code, or fall): The patient and his have consented to proceeding with surgery today. We will plan for an exploratory laparotomy, lysis of adhesions and possible bowel resection later today.
[2024-07-08] MEDS: ACETAMINOPHEN IV 1,000 MG/100 ML VIAL 400 MG IV (15:41)
[2024-07-08] MEDS: LACTATED RINGERS 1,000 ML 42 ML IV (15:42)
[2024-07-08] MEDS: PIPERACILLIN/TAZO 3.375 GM in SODIUM CHLORIDE 0.9% 100 ML IV (16:13)
--- NOTE | 2024-07-08 16:45 | SUR.OPER ---
Supine on padded OR bed, head on pillow, arms secured on padded arm boards at <90 degrees abduction, legs uncrossed, safety belt at thigh, tape over blanket over lower legs.
[2024-07-08] MEDS: BUPIVACAINE 0.5% (PF) 30 ML VIAL 25 ML INJ (16:49)
[2024-07-08] MEDS: BUPIVACAINE LIPOSOME 266 MG/20 ML VIAL INJ (17:04)
--- NOTE | 2024-07-08 17:50 | PM.OP.1 ---
Operative Date/Time/Diagnoses Date of procedure: 07/08/24 Time of procedure: 17:51 Pre-op diagnosis: Small bowel obstruction Post-op diagnosis: same Procedure & Clinicians Procedure: Exploratory laparotomy Lysis of adhesions Same procedure as scheduled: Yes Surgeon: Aneudy Diggs Anesthesia Type: General Operative Notes Procedure in detail: The patient is an 83-year-old man with a small-bowel obstruction that failed nonoperative management. He was consented for an exploratory laparotomy and lysis of adhesions. Patient was given Zosyn. The patient was brought to the operating room, placed on the table in the supine position and general endotracheal anesthesia was induced. A Gee catheter was placed. The abdomen was prepped and draped in the usual fashion and a time-out was performed. We made an 8 cm upper midline incision. We found old Prolene suture in the midline and divided it and removed it. We carefully divided the anterior sheath with cautery. We grasped the posterior sheath between clamps and divided it with Metzenbaum scissors to enter the abdomen. There were no loops of bowel adherent to the upper midline incision. There was a loop of bowel adherent to the anterior abdominal wall just inferior to her incision and it was carefully dissected off the abdominal wall with Metzenbaum scissors. There was a band of scar tissue running from the mesentery to the abdominal wall of the right upper quadrant. This was sharply divided and appeared to be the transition point. The bowel appeared healthy and viable. Additional lysis of adhesions was performed distal to the transition point to ensure that it was indeed the transition between dilated and normal caliber bowel. No additional transition point was noted. Finally, the NG tube was palpated in the stomach and drawn back in coordination with Dr. Herrera until the tip was in the mid stomach. Finally, we injected Exparel into the fascia and closed with a running 0 PDS suture reinforced with multiple interrupted 0 Vicryl internal retention sutures. The skin was closed with anamaria. EBL: 10 mL Specimen: None Disposition: PACU Post-operative Condition: stable Disposition: PACU
--- NOTE | 2024-07-08 18:58 | PC.NURSE ---
Day shift: Patient returned from OR at 1820. PICC line not able to be placed today due to PICC nurse schedule and surgery. MD Diggs aware and he is ok with starting TPN tomorrow. Will continue to monitor.
[2024-07-09] VITALS (9 sets, daily range): BP systolic 127–179; BP diastolic 72–89; PULSE 60–88; RESP 15–18; TEMP 36.4–37.1; O2SAT 95–100
[2024-07-09] MEDS: HYDROMORPHONE 0.5 MG INJ IV ×6 (01:53→20:51)
[2024-07-09] MEDS: SODIUM CHLORIDE 0.9% 1,000 ML 125 ML IV ×3 (02:36→18:18)
[2024-07-09] MEDS: LORazepam 2 MG/ML INJ 0.5 MG IV (06:03)
--- NOTE | 2024-07-09 09:53 | DI.RAD.S_ITS ---
PROCEDURE: XR CHEST FOR PICC 1V INDICATIONS: line placement TECHNIQUE: One view of the chest was acquired. COMPARISON: [facility], CT, CT ABDOMEN PELVIS W CON, 07/07/2024, 11:12. [facility], CR, XR CHEST 1V, 07/04/2024, 13:31. [facility], CR, XR CHEST 1V, 07/04/2024, 10:52. FINDINGS: Surgical changes and devices: -Left-sided PICC with the catheter tip terminating at the middle 3rd of the SVC. -Enteric tube coursing into the stomach. The tip is outside the field of view. -Endotracheal tube is been removed. Lungs and pleura: Coarsened pulmonary markings. No consolidation demonstrated. No pneumothorax. No significant pleural effusion. Mediastinum: Mediastinal contours appear unchanged. Heart size is normal. Bones and chest wall: No suspicious bony lesions. Gas under the right hemidiaphragm, new. IMPRESSION: 1. Right-sided PICC with the catheter tip terminating at the middle 3rd of the SVC. No pneumothorax. 2. Suspect pneumoperitoneum. -Recommend CT abdomen pelvis with IV contrast for further evaluation. Comment: Findings were discussed with Nacho De Luna at 10:35 a.m. Dictated by: David Moralez M.D. on 07/09/2024 at 10:28 Approved by: David Moralez M.D. on 07/09/2024 at 10:35
--- NOTE | 2024-07-09 10:05 | PM.PN.1 ---
Subjective Subjective Date Patient Seen: 07/09/24 Time Patient Seen: 10:05 Interval history: No changes PICC has been placed Exam Vital Signs (past 8 hours): - 07/09/24 03:00 Temperature 97.8 F Pulse Rate 60 Respiratory Rate 18 Blood Pressure 179/89 H Pulse Oximetry 99 Oxygen Flow Rate 0 Oxygen Delivery Method Room Air Oxygen Flow Rate 0 Const General: No acute distress Resp Effort & Inspection: normal respiratory effort Objective Labs 07/11/24 05:32 07/11/24 05:32 [facility] Medical History History of anemia Unspecified disturbances of skin sensation Surgical History H/O exploratory laparotomy History of spinal fusion Social History household members: spouse Smoking Status: Former smoker alcohol intake: former Assessment & Plan Assessment and plan (1) Small bowel obstruction: Status: Acute Plan Doing well following lysis of adhesions for small-bowel obstruction Expect postoperative ileus for at least a few days Start TPN once the PICC line position is confirmed Time-Based Coding :: [TOTAL MINUTES] spent with patient and on the chart (including review of chart, obtaining history, exam, reviewing outside data, placing orders, documenting exam and treatment plan, and counseling patient) on [DATE]. Quality VTE Deep Vein Thrombosis/Pulmonary Embolism Present on Admission: No
[2024-07-09] MEDS: ONDANSETRON 4 MG/2 ML INJ IV ×2 (11:45→20:51)
[2024-07-09 12:26] LABS: Add Manual Diff / Slide Review NO; Basophils Absolute Auto 0 /uL (0-100); Eosinophils Absolute Auto 0 /uL (0-450); Hematocrit 33.5 % (41-53); Hemoglobin 11.2 g/dL (13.5-17.5); Lymphocytes Absolute Auto 1000 /uL (1100-4500); Lymphocytes Percent Auto 5.6 % (25-40); Mean Corpuscular HGB Conc 33.3 % (30-36); Mean Corpuscular Hemoglobin 31.5 PG (26-34); Mean Corpuscular Volume 94.4 fL (80-100); Monocytes Absolute Auto 1200 /uL (0-900); Monocytes Percent Auto 6.5 % (3-14); Neutrophils Absolute Auto 15900 /uL (1500-7000); Neutrophils Percent Auto 87.9 % (50-75); Platelet Count 340 X10^3/uL (150-400); Red Blood Cell Count 3.55 X10^6/uL (4.5-5.9); Red Cell Distribution Width 15.5 % (11.6-14.8); White Blood Cell Count 18.1 X10^3/uL (4.5-11.0)
[2024-07-09 12:38] LABS: Alanine Aminotransferase 13 IU/L (<50); Albumin 2.8 g/dL (3.5-5.0); Albumin Globulin Ratio 0.9 (1.0-2.8); Alkaline Phosphatase 83 U/L (38-126); Aspartate Aminotransferase 24 IU/L (17-59); BUN Creatinine Ratio 25.8 (6-22); Bilirubin Total 0.6 mg/dL (0.2-1.3); Blood Urea Nitrogen 16 mg/dL (9-20); Calcium 7.9 mg/dL (8.4-10.2); Carbon Dioxide 21 mmol/L (22-32); Chloride 106 mmol/L (98-107); Estimated Glomerular Filt Rate > 60 mL/min (>60); Glucose 97 mg/dL (80-110); HEMOLYSIS < 15 (0-50); Potassium 3.9 mmol/L (3.4-5.1); Sodium 135 mmol/L (137-145); Total Protein 5.8 g/dL (6.3-8.2)
[2024-07-09] MEDS: FINASTERIDE 5 MG TABLET PO (14:14)
[2024-07-09] MEDS: ENOXAPARIN 40 MG/0.4 ML SYRINGE SUBCUT (14:14)
--- NOTE | 2024-07-09 15:33 | CM.DPC ---
DCP Cont: Per MD, pt was not able to be successful with conservative tx and per Surgeon pt was finally agreeable to Exploratory Lap last night Monday evening and PICC placed today to start TPN for nutrition. Pt independent at baseline and lives with spouse on [place] and SW to follow closely for pt progress to determine if TPN will be needed at d/c and then [facility] referral will be needed to manage his feeds and possible [facility] RN. Latoya Molina MSW
--- NOTE | 2024-07-09 15:53 | P.PN_ITS ---
Subjective Subjective Interval history: 83 M with sbo, s/p ex lap with ELIUD. Ambulating the halls today, NG tube and millan removed. No gas or BM. He feels thirsty but not hungry. Exam Vital Signs (past 8 hours): - 07/09/24 08:00 07/09/24 08:00 07/09/24 11:00 Temperature 98.4 F Pulse Rate 62 Respiratory Rate 15 Blood Pressure 159/74 H Pulse Oximetry 95 99 Oxygen Delivery Method Room Air Room Air Oxygen Flow Rate 0 Oxygen Delivery Method Room Air Oxygen Flow Rate 0 Narrative Exam Narrative: NAD, alert and oriented. Fluent speech. Lungs are clear, normal rate and effort. Heart is regular, no murmur gallop or rub. Abdomen is soft, non distended. Appropriately tender around incisions. Extremities are free of edema. Objective Labs 07/09/24 12:05 07/09/24 12:05 Labs: Laboratory Results - last 24 hr 07/09/24 12:05 WBC 18.1 H RBC 3.55 L Hgb 11.2 L Hct 33.5 L MCV 94.4 MCH 31.5 MCHC 33.3 RDW 15.5 H Plt Count 340 Neut % (Auto) 87.9 H Lymph % (Auto) 5.6 L [place] % (Auto) 6.5 Eos % (Auto) 0.0 L Baso % (Auto) 0.0 Neut # (Auto) 94820 H Lymph # (Auto) 1000 L [place] # (Auto) 1200 H Eos # (Auto) 0 Baso # (Auto) 0 Sodium 135 L Potassium 3.9 Chloride 106 Carbon Dioxide 21 L BUN 16 Creatinine 0.62 L Estimated GFR > 60 BUN/Creatinine Ratio 25.8 H Glucose 97 Calcium 7.9 L Phosphorus 2.0 L Magnesium 2.0 Total Bilirubin 0.6 AST 24 ALT 13 Alkaline Phosphatase 83 Total Protein 5.8 L Albumin 2.8 L Globulin 3.0 Albumin/Globulin Ratio 0.9 L PFSH Medical History History of anemia Unspecified disturbances of skin sensation Surgical History H/O exploratory laparotomy History of spinal fusion Social History household members: spouse Smoking Status: Former smoker alcohol intake: former Assessment & Plan Assessment & Plan narrative: 1. SBO secondary to adhesions. Present on admission and active. Not improving. - POD # ex-lap with ELIUD with general surgery. NG tube removed today, Millan out. - advance diet per surgery recommendations, still no gas or BM. Discussed care and ongoing planning with surgery today. 2. CLAUDIA, present on admission and resolved. - likely due to dehydration. Cr 1.24 on admit from 0.7 at baseline. 3. Severe acute protein malnutrition, present on admission and active. - recent 7lb weight loss, BMI 18.2 at age 83, appears very thin and malnourished. 4. BPH, present on admission and stable. - continue flomax as able. 5. HTN, present on admission and stable. - hold home irbesartan, propranolol, amlodipine for now. - restart some antihypertensives if patient becomes hypertensive. 6. Hypokalemia, new and improving. - replete as needed PLAN: -NPO, advance diet per surgery -continue analgesia and IV fluids, antiemetics. -okay to start PT, consider OT depending on initial eval. SOPHY: 3-4 more days likely, pending resumption of bowel function after surgery. Time-Based Coding :: [TOTAL MINUTES] spent with patient and on the chart (including review of chart, obtaining history, exam, reviewing outside data, placing orders, documenting exam and treatment plan, and counseling patient) on [DATE]. Quality VTE Deep Vein Thrombosis/Pulmonary Embolism Present on Admission: No
[2024-07-09] MEDS: AA 5 %/CALCIUM/LYTES/DEXT 20 % 500 ML with MULTIVITAMIN 10 ML, TRACE ELEMENTS 1 ML, THI... 21.333 ML IV (18:20)
[2024-07-09] MEDS: ACETAMINOPHEN IV 1,000 MG/100 ML VIAL 400 MG IV (18:28)
[2024-07-09] MEDS: TAMSULOSIN 0.4 MG CAPSULE PO (20:51)
[2024-07-10] VITALS: BP 126/65; PULSE 62; RESP 18; TEMP 37; O2SAT 96
[2024-07-10] MEDS: HYDROMORPHONE 0.5 MG INJ IV ×6 (00:19→21:58)
[2024-07-10] MEDS: SODIUM CHLORIDE 0.9% 1,000 ML 125 ML IV ×2 (03:15→21:57)
[2024-07-10 04:00] VITALS: BP 105/70; PULSE 61; RESP 18; TEMP 36.7; O2SAT 96
[2024-07-10 04:24] LABS: Add Manual Diff / Slide Review NO; Basophils Absolute Auto 0 /uL (0-100); Basophils Percent Auto 0.2 % (0-2); Eosinophils Absolute Auto 100 /uL (0-450); Eosinophils Percent Auto 0.6 % (2-4); Hematocrit 29.4 % (41-53); Hemoglobin 9.9 g/dL (13.5-17.5); Lymphocytes Absolute Auto 1500 /uL (1100-4500); Lymphocytes Percent Auto 12.4 % (25-40); Mean Corpuscular HGB Conc 33.8 % (30-36); Mean Corpuscular Hemoglobin 31.7 PG (26-34); Mean Corpuscular Volume 93.9 fL (80-100); Monocytes Absolute Auto 900 /uL (0-900); Monocytes Percent Auto 7.3 % (3-14); Neutrophils Absolute Auto 9400 /uL (1500-7000); Neutrophils Percent Auto 79.5 % (50-75); Platelet Count 275 X10^3/uL (150-400); Red Blood Cell Count 3.13 X10^6/uL (4.5-5.9); Red Cell Distribution Width 14.8 % (11.6-14.8); White Blood Cell Count 11.9 X10^3/uL (4.5-11.0)
[2024-07-10 04:30] LABS: Alanine Aminotransferase 13 IU/L (<50); Albumin 2.3 g/dL (3.5-5.0); Albumin Globulin Ratio 0.9 (1.0-2.8); Alkaline Phosphatase 67 U/L (38-126); Aspartate Aminotransferase 23 IU/L (17-59); Bilirubin Total 0.4 mg/dL (0.2-1.3); Blood Urea Nitrogen 18 mg/dL (9-20); Calcium 7.6 mg/dL (8.4-10.2); Carbon Dioxide 27 mmol/L (22-32); Chloride 105 mmol/L (98-107); Estimated Glomerular Filt Rate > 60 mL/min (>60); Globulin 2.7 g/dL (1.7-4.1); Glucose 115 mg/dL (80-110); HEMOLYSIS < 15 (0-50); Phosphorous 1.3 mg/dL (2.3-3.7); Potassium 3.2 mmol/L (3.4-5.1); Sodium 133 mmol/L (137-145)
[2024-07-10] MEDS: POTASSIUM CHLORIDE IN WATER 10 MEQ/100 ML PIGGYBACK 100 MEQ IV ×2 (05:34→06:42)
[2024-07-10 08:00] VITALS: BP 152/73; PULSE 54; RESP 17; TEMP 36.7; O2SAT 95; O2SAT 96
[2024-07-10] MEDS: TAMSULOSIN 0.4 MG CAPSULE PO (10:24)
[2024-07-10] MEDS: FINASTERIDE 5 MG TABLET PO (10:25)
[2024-07-10] MEDS: ENOXAPARIN 40 MG/0.4 ML SYRINGE SUBCUT (10:25)
[2024-07-10] MEDS: POTASSIUM PHOSPHATE 45 MMOL in SODIUM CHLORIDE 0.9% 500 ML 85.833 MMOL IV (10:30)
[2024-07-10 12:00] VITALS: BP 120/63; PULSE 63; RESP 16; TEMP 36.6; O2SAT 93; O2SAT 95
--- NOTE | 2024-07-10 13:27 | P.PN_ITS ---
Subjective Subjective Interval history: 83 M with sbo, s/p ex lap with ELIUD. Ambulating the halls today, is tolerating some but not much of his clear liquid diet. No gas or BM. Exam Vital Signs (past 8 hours): - 07/10/24 08:00 07/10/24 12:00 Temperature 98.0 F 97.8 F Pulse Rate 54 L 63 Respiratory Rate 17 16 Blood Pressure 152/73 H 120/63 Pulse Oximetry 95 93 Oxygen Delivery Method Room Air Oxygen Flow Rate 0 Narrative Exam Narrative: NAD, alert and oriented. Fluent speech. Lungs are clear, normal rate and effort. Heart is regular, no murmur gallop or rub. Abdomen is soft, non distended. Appropriately tender around incisions. Extremities are free of edema. Objective Labs 07/10/24 04:05 07/10/24 04:05 Labs: Laboratory Results - last 24 hr 07/10/24 04:05 WBC 11.9 H RBC 3.13 L Hgb 9.9 L Hct 29.4 L MCV 93.9 MCH 31.7 MCHC 33.8 RDW 14.8 Plt Count 275 Neut % (Auto) 79.5 H Lymph % (Auto) 12.4 L [place] % (Auto) 7.3 Eos % (Auto) 0.6 L Baso % (Auto) 0.2 Neut # (Auto) 9400 H Lymph # (Auto) 1500 [place] # (Auto) 900 Eos # (Auto) 100 Baso # (Auto) 0 Sodium 133 L Potassium 3.2 L Chloride 105 Carbon Dioxide 27 BUN 18 Creatinine 0.62 L Estimated GFR > 60 BUN/Creatinine Ratio 29.0 H Glucose 115 H Calcium 7.6 L Phosphorus 1.3 L Magnesium 2.0 Total Bilirubin 0.4 AST 23 ALT 13 Alkaline Phosphatase 67 Total Protein 5.0 L Albumin 2.3 L Globulin 2.7 Albumin/Globulin Ratio 0.9 L PFS Medical History History of anemia Unspecified disturbances of skin sensation Surgical History H/O exploratory laparotomy History of spinal fusion Social History household members: spouse Smoking Status: Former smoker alcohol intake: former Assessment & Plan Assessment & Plan narrative: 1. SBO secondary to adhesions. Present on admission and active. Not improving. - s/p ex-lap with ELIUD with general surgery. - advance diet per surgery recommendations, still no gas or BM. Discussed care and ongoing planning with surgery today. 2. CLAUDIA, present on admission and resolved. - likely due to dehydration. Cr 1.24 on admit from 0.7 at baseline. Now improved / resolved 3. Severe acute protein malnutrition, present on admission and active. - recent 7lb weight loss, BMI 18.2 at age 83, appears very thin and malnourished. 4. BPH, present on admission and stable. - continue flomax as able. 5. HTN, present on admission and stable. - hold home irbesartan, propranolol, amlodipine for now, BP is still within normal limits today. 6. Hypokalemia, hypophosphatemia, - replete as needed with TPN formulation adjustments PLAN: -CLD, discussed with surgery and patient can advance diet as tolerated but will keep on clears today. -continue analgesia, currently with IV tylenol, dilaudid. Try to transition to oral meds if he is tolerating his diet more -continue PT -BP is controlled still, continue hold home antihypertensives. -Will continue TPN tonight, can stop once PO intake improves. Adjustments per pharmacy. SOPHY: 2-3 more days likely, pending resumption of bowel function after surgery. Time-Based Coding :: [TOTAL MINUTES] spent with patient and on the chart (including review of chart, obtaining history, exam, reviewing outside data, placing orders, documenting exam and treatment plan, and counseling patient) on [DATE]. Quality VTE Deep Vein Thrombosis/Pulmonary Embolism Present on Admission: No
--- NOTE | 2024-07-10 14:05 | PM.PNPO.1 ---
Subjective Subjective Date Patient Seen: 07/10/24 Time Patient Seen: 14:05 Interval history: No acute events Tolerating clears Exam Vital Signs (past 8 hours): - 07/10/24 07:00 07/10/24 08:00 07/10/24 12:00 Temperature 98.0 F 97.8 F Pulse Rate 54 L 63 Respiratory Rate 17 16 Blood Pressure 152/73 H 120/63 Pulse Oximetry 95 93 Oxygen Delivery Method Room Air Oxygen Delivery Method Room Air Oxygen Flow Rate 0 Narrative Exam Narrative: Gen-Elderly man alert and oriented Abdomen Soft appropriately tender to palpation Objective Labs 07/10/24 04:05 07/10/24 04:05 Labs: Laboratory Results - last 24 hr 07/10/24 04:05 WBC 11.9 H RBC 3.13 L Hgb 9.9 L Hct 29.4 L MCV 93.9 MCH 31.7 MCHC 33.8 RDW 14.8 Plt Count 275 Neut % (Auto) 79.5 H Lymph % (Auto) 12.4 L [place] % (Auto) 7.3 Eos % (Auto) 0.6 L Baso % (Auto) 0.2 Neut # (Auto) 9400 H Lymph # (Auto) 1500 [place] # (Auto) 900 Eos # (Auto) 100 Baso # (Auto) 0 Sodium 133 L Potassium 3.2 L Chloride 105 Carbon Dioxide 27 BUN 18 Creatinine 0.62 L Estimated GFR > 60 BUN/Creatinine Ratio 29.0 H Glucose 115 H Calcium 7.6 L Phosphorus 1.3 L Magnesium 2.0 Total Bilirubin 0.4 AST 23 ALT 13 Alkaline Phosphatase 67 Total Protein 5.0 L Albumin 2.3 L Globulin 2.7 Albumin/Globulin Ratio 0.9 L PFSH Medical History History of anemia Unspecified disturbances of skin sensation Surgical History H/O exploratory laparotomy History of spinal fusion Social History household members: spouse Smoking Status: Former smoker alcohol intake: former Assessment & Plan Post-op Postoperative Procedures: Procedures Operation Date: 07/07/24 09:00 <No data on this case meets the specified criteria> Operation Date: 07/08/24 16:45 Actual Procedure Side Surgeon p Exploratory Laparotomy with lysis of adhesions Aneudy N Dontae, MD Postoperative status narrative: Advance diet as tolerated Quality VTE Deep Vein Thrombosis/Pulmonary Embolism Present on Admission: No
--- NOTE | 2024-07-10 15:05 | CM.DPNOTE ---
DCP Note SOCCER PLAYER reviewed EMR. Plan is to stop TPN today and advance diet. Per PT, rec HH. OT eval pending. SOCCER PLAYER met with pt and spouse in room. Introduced self and role. In agreement with [facility]. Hopeful for medical priority boarding pass at discharge. Deny other CM needs at this time. SOCCER PLAYER spoke with Marie from [facility]. Kindly agreed to accept pt. SOCCER PLAYER completed f2f, order needed P: dc home with spouse when medically stable. [facility] to follow. May need priority boarding pass. CM team will continue to follow as needed ALONSO Pope
[2024-07-10 16:00] VITALS: BP 146/78; PULSE 67; RESP 16; TEMP 36.4; O2SAT 95; O2SAT 98
[2024-07-10] MEDS: ONDANSETRON 4 MG/2 ML INJ IV ×2 (16:01→21:55)
--- NOTE | 2024-07-10 16:05 | OT.IP.EVAL ---
Current Diagnoses Unspecified intestinal obstruction, unspecified as to partial versus complete obstruction (07/04/24) Surgery Performed Operation Date: 07/07/24 09:00 <No data on this case meets the specified criteria> Operation Date: 07/08/24 16:45 Actual Procedures p Exploratory Laparotomy with lysis of adhesions - Aneudy Diggs MD Past Medical History (Last Reviewed 07/05/24 @ 08:00 by Tono Duggan MD) History of anemia Unspecified disturbances of skin sensation Surgical History (Last Reviewed 07/05/24 @ 08:00 by Tono Duggan MD) H/O exploratory laparotomy History of spinal fusion Occupational Therapy Inpatient Evaluation/Re-Eval M1 PT/OT-IP Prior Functional Status Start: 07/10/24 14:01 Freq: NEEDED Status: Active Protocol: Document 07/10/24 14:02 KJ (Rec: 07/10/24 14:14 KJ [id number]) Medical Review Prior Functional Status Medical History Reviewed Yes Mobility and Gait Indep mobility w/out AD. Activities of Daily Living and IADL's Indep ADLs. Prior Functional Level (Other details) Worked out in home gym. Social History Household Members spouse Living Arrangements Apartment/Condo Number of Floors (Floors) Two Floors Number of Stairs To Enter/Railing? 3 Employment Status Retired Additional Social History Comment Lives with who is very active, is a runner. M1 PT/OT-IP Prior Functional Status Start: 07/10/24 15:42 Freq: NEEDED Status: Active Protocol: Document 07/10/24 15:43 RAJAN (Rec: 07/10/24 16:05 RAJAN [id number]) Medical Review Prior Functional Status Medical History Reviewed Yes Communication pt able to communicate needs Mobility and Gait Indep mobility w/out AD. Activities of Daily Living and IADL's Indep ADLs. Prior Functional Level (Other details) Worked out in home gym. Pt would regularly hike and walk his 20# dog. Social History Household Members spouse Living Arrangements Apartment/Condo Number of Floors (Floors) Two Floors Number of Stairs To Enter/Railing? 3 with railing on R when entering. Pts needs can all be met on main level of home Home Environment Standard Height Toilet,Walk in Shower Home Equipment Hand Held Shower Employment Status Retired Additional Social History Comment Lives with . Pt is currently working on naz program to have EV units placed on [facility]. M2 OT-IP Current Condition Start: 07/10/24 15:42 Freq: Status: Active Protocol: Document 07/10/24 15:43 TIRSOERNA (Rec: 07/10/24 16:05 TIRSODIONYABRAHAMTON [id number]) Occupational Therapy Current Condition Current Condition Evaluation Date 07/10/24 Treatment Diagnosis SBO, weakness Diagnosis Onset Date 07/04/24 M3 OT- IP Subjective and Pain Start: 07/10/24 15:42 Freq: Status: Active Protocol: Document 07/10/24 15:43 TIRSOERNA (Rec: 07/10/24 16:05 TIRSOWANSBRENDA [id number]) OT- Subjective Occupational Therapy Visit Type Type Initial Evaluation Visit Start Time 15:05 Visit Stop Time 15:40 Notes Pt reclined in bed with spouse present. Pt agreed to participate in OT eval. Occupational Therapy Visit Comments Patient Comments Pt is eager to return home. OT Pain Assessment Pain When Pain Assessed At Rest Pain Present Pain Present Pain Reported Location Abdomen Intensity 4 Scale Used Numeric (0 - 10) Description Aching,Dull,Sharp M4 OT- IP ADL's Start: 07/10/24 15:42 Freq: Status: Active Protocol: Document 07/10/24 15:43 TIRSODIONYABRAHAMBRENDA (Rec: 07/10/24 16:05 TIRSODIONYELOY [id number]) OT ADL-Grooming General Evaluation Grooming Ability Standby Assistance Areas Needing Assistance Retrieving/Set-up of Grooming Items Comments OT Grooming Comments pt performed hair brushing while standing sink side. pt unable to complete task due to poor activity tolerance. OT ADL-Oral Care Comments Oral Care Comments pt declined, saying he had performed earlier OT ADL-Dressing General Eval Upper Body Dressing Ability Standby Assistance Lower Body Dressing Ability Contact Guard Assistance Comments OT Dressing Comments pt donned and doffed sock while sitting EOB. Pt is able to perform, but has stiff guarded posture due to abdominal pain. pt declined performing other BADL due to being tired. overall pt demonstrates decreased activity tolerance. OT ADL-Toileting Comments OT Toileting Comments pt declines toileting at time of eval. OT ADL-Bathing Comments OT Bathing Comments pt declines bathing at time of eval. Pt performs standing shower at home. Pt would benefit from seated EOB sponge bath or seated shower at current level of activity tolerance. M5 OT- IP IADL's Start: 07/10/24 15:42 Freq: Status: Active Protocol: Document 07/10/24 15:43 RAJAN (Rec: 07/10/24 16:05 JACKSONABRAHAMBRENDA [id number]) OT-Instrumental Activities of Daily Living Deficits IADL Deficits Identified No Deficits Home Safety Awareness Awareness of Need for Assistance at Home Good Awareness Ability to Problem Solve Emergency Able to Problem Solve Situations Medication Management Medication Management No Deficits Identified Money Management Money Management No Deficits Identified Meal Preparation Meal Preparation Caregiver Provides Assist Tumble Tailstock Turret Lathe Operator Tumble Tailstock Turret Lathe Operator Caregiver Provides Assist Driving Driving Caregiver Provides Assist Driving Comments pt has been driving, but spouse can assist M6 OT- IP Functional Cognition Start: 07/10/24 15:42 Freq: Status: Active Protocol: Document 07/10/24 15:43 TIRSODIONYABRAHAMBRENDA (Rec: 07/10/24 16:05 TIRSODIONYABRAHAMBRENDA [id number]) Cognitive Factors Limiting Selfcare Function Cognitive Ability Level of Alertness Alert Patient Orientation Name,Age,Situation Attention Span Ability Capable of Focused Attention, Capable of Sustained Attention Ability to Follow Commands Able to Follow Multi-Step Commands Memory Description No Deficits Noted Safety Awareness No Deficits Noted Problem Solving Ability No deficits Noted OT- Vision and Hearing OT- Hearing Assessment OT- Hearing Assessment WFL OT- Vision Assessment Visual Acuity WFL M7 OT- IP Mobility and Balance Start: 07/10/24 15:42 Freq: Status: Active Protocol: Document 07/10/24 15:43 TIRSODIONYABRAHAMBRENDA (Rec: 07/10/24 16:05 TIRSOWAELOY [id number]) OT- Bed Mobility Assessment Supine to Sit Supine to Sit Assist Minimal Assistance Sit to Supine Sit to Supine Assist Minimal Assistance Scooting Scooting to Edge of Bed Standby Assistance Scooting Up and Down in Bed Maximum Assistance OT-Transfer Assessment Sit to and From Stand Sit to and from Stand Contact Guard Assistance, Minimal Assistance Transfers Transfer Ability Contact Guard Assistance Technique Transfer Destination Bed Transfer Technique Stand Step Pivot Devices Transfer Assistive Devices Gait Belt,Front Wheeled Walker Comments Mobility Comments pt requires vcs for safety awareness and hand placement on FWW OT- Gait Assessment Gait Gait Assistance Required: Contact Guard Assist Distance (Feet) 20 Assistive Devices Assistive Device Gait Belt,Front Wheeled Walker Comments Gait Ability Comments pt amb from bed to sink for sink side ADLs and back to the bed. pt is SOB after walk and standing time at sink. pt requires vcs to look up while walking OT- Balance Assessment Sitting Balance and Reactions Static Sitting Balance Ability Normal Dynamic Sitting Balance Ability Good Standing Balance and Reactions Static Standing Balance Ability Good Dynamic Standing Balance Ability Good M8 OT- IP Objective Assessments Start: 07/10/24 15:42 Freq: Status: Active Protocol: Document 07/10/24 15:43 [facility] (Rec: 07/10/24 16:05 [facility] [id number]) OT Gross Range of Motion Upper Extremity Range of Motion Assessment Within Functional Limits OT Strength Comments Strength Comments Pt tolerates 4-/5 resistance grossly B UEs. OT- Coordination Assessment Upper Extremity Finger to Nose Test Within Functional Limits Finger Tapping Test Within Functional Limits M9 OT- IP Assessment and Plan Start: 07/10/24 15:42 Freq: Status: Active Protocol: Document 07/10/24 15:43 [facility] (Rec: 07/10/24 16:05 [facility] [id number]) OT Summary Assessment and Plan Potential Rehabilitation Potential Excellent Analytic Complexity at Evaluation Low Summary OT Impairments Pain,Strength,Balance, Functional Mobility,Grooming, Dressing,Toileting,Bathing, Toilet Transfers,Shower Transfers,Activity Tolerance Progress Towards Goals Progressing Toward Goals Assessment Summary Pt is an 83 yo M who presented to ED with abdominal pain and vomiting for 6 days. Pt was found to have a SBO that was initially treated conservatively but required sx on 07/08. Pt was referred to OT and PT due to generalized weakness from hospitalization. Prior to admission pt was highly active and I with all desired tasks. During eval, pt presented with episodes of SOB, decreased activity tolerance, muscle weakness, and decreased I with BADLs. Skilled OT services are appropriate to address these deficits and promote return to PLOF. Goals Grooming Goal Independent Dressing Goal Independent Toileting Goal Independent Bathing Goal Independent Toilet Transfer Goal Independent Shower Transfer Goal Independent Days to Meet Goals 5 Frequency of Treatment Frequency Of Treatment Once a Day Treatment Plan OT Treatment Plan ADL Training,Functional Mobility,Therapeutic Exercises ,Patient/Family Education Discharge Recommendations OT Discharge Recommendations Home,Home with Assistance Home Equipment Needs shower chair/stool Transportation Needs at Discharge Private Vehicle
--- NOTE | 2024-07-10 17:13 | DIET.PN1 ---
Dietary Progress Note Assessment: Nutrition consulted for vegetarian, assessed at high risk. Low MNA consult completed 07/08. Pt receiving clear vegetarian broths and when diet is advanced, will provide vegan options per pt preference. Pt tolerating clears. Reviewed labs, will maintain TPN rate at 21 ml/hr for day 2. Phos from 2 to 1.3, K+ 3.9 to 3.2. Spoke w/ pharmacy. Phos and K+ repleted per protocol. Will continue to monitor for diet advancement per surgery and labs Ht: 170.18 cm Wt: 52.844 kg BMI: 18.2 Last BM: 06/29/24 (07/08/24 15:48) MNA: 8 Deni Score: 21 Diet: 07/09/24 Dinner Clear Liquid Diet Diet Modifications: Nutrition Percent Meal Consumed 100% 07/09/24 18:42 Labs: RBC 3.13 X10^6/uL (4.5-5.9) L 07/10/24 04:05 Hgb 9.9 g/dL (13.5-17.5) L 07/10/24 04:05 Hct 29.4 % (41-53) L 07/10/24 04:05 Creatinine 0.62 mg/dL (0.66-1.25) L 07/10/24 04:05 Electronically Signed by: Ellen [place] 07/10/24 17:13 Clinical Dietitian [address] [id number]
[2024-07-10] MEDS: FAT EMULSIONS 50 GM/250 ML EMULSION IV (17:25)
[2024-07-10] MEDS: AA 5 %/CALCIUM/LYTES/DEXT 20 % 500 ML with MULTIVITAMIN 10 ML, TRACE ELEMENTS 1 ML, THI... 21.333 ML IV (17:25)
[2024-07-10 20:00] VITALS: BP 146/82; PULSE 69; RESP 18; TEMP 36.7; O2SAT 98
[2024-07-10] MEDS: MELATONIN 3 MG TABLET 6 MG PO (21:57)
[2024-07-11] VITALS: BP 127/73; PULSE 72; RESP 20; TEMP 37.2; O2SAT 96
[2024-07-11 04:00] VITALS: BP 135/75; PULSE 69; RESP 15; TEMP 37.3; O2SAT 93
[2024-07-11] MEDS: HYDROMORPHONE 0.5 MG INJ IV ×3 (04:29→13:36)
[2024-07-11 05:51] LABS: Add Manual Diff / Slide Review NO; Basophils Absolute Auto 0 /uL (0-100); Basophils Percent Auto 0.4 % (0-2); Eosinophils Absolute Auto 100 /uL (0-450); Eosinophils Percent Auto 1.1 % (2-4); Hematocrit 31.5 % (41-53); Hemoglobin 10.6 g/dL (13.5-17.5); Lymphocytes Absolute Auto 1300 /uL (1100-4500); Lymphocytes Percent Auto 11.8 % (25-40); Mean Corpuscular HGB Conc 33.6 % (30-36); Mean Corpuscular Hemoglobin 31.5 PG (26-34); Mean Corpuscular Volume 93.9 fL (80-100); Monocytes Absolute Auto 900 /uL (0-900); Monocytes Percent Auto 8.4 % (3-14); Neutrophils Absolute Auto 8700 /uL (1500-7000); Neutrophils Percent Auto 78.3 % (50-75); Platelet Count 294 X10^3/uL (150-400); Red Blood Cell Count 3.36 X10^6/uL (4.5-5.9); Red Cell Distribution Width 15.1 % (11.6-14.8); White Blood Cell Count 11.2 X10^3/uL (4.5-11.0)
[2024-07-11 06:03] LABS: Alanine Aminotransferase 13 IU/L (<50); Albumin 2.4 g/dL (3.5-5.0); Alkaline Phosphatase 71 U/L (38-126); Aspartate Aminotransferase 26 IU/L (17-59); BUN Creatinine Ratio 25.5 (6-22); Bilirubin Total 0.5 mg/dL (0.2-1.3); Blood Urea Nitrogen 14 mg/dL (9-20); Calcium 7.8 mg/dL (8.4-10.2); Carbon Dioxide 22 mmol/L (22-32); Chloride 105 mmol/L (98-107); Estimated Glomerular Filt Rate > 60 mL/min (>60); Globulin 2.3 g/dL (1.7-4.1); Glucose 113 mg/dL (80-110); HEMOLYSIS 22 (0-50); Magnesium 1.9 mg/dL (1.6-2.3); Phosphorous 2.4 mg/dL (2.3-3.7); Potassium 4.1 mmol/L (3.4-5.1); Sodium 133 mmol/L (137-145); Total Protein 4.7 g/dL (6.3-8.2)
[2024-07-11] MEDS: SODIUM CHLORIDE 0.9% 1,000 ML 125 ML IV (07:04)
[2024-07-11 08:00] VITALS: BP 128/72; PULSE 71; RESP 17; TEMP 36.3; O2SAT 97
[2024-07-11] MEDS: ENOXAPARIN 40 MG/0.4 ML SYRINGE SUBCUT (08:47)
[2024-07-11] MEDS: TAMSULOSIN 0.4 MG CAPSULE PO (08:48)
[2024-07-11] MEDS: FINASTERIDE 5 MG TABLET PO (08:48)
[2024-07-11] MEDS: ONDANSETRON 4 MG/2 ML INJ IV ×2 (09:09→20:59)
--- NOTE | 2024-07-11 09:42 | OT.IP.TRT ---
Current Diagnoses Unspecified intestinal obstruction, unspecified as to partial versus complete obstruction (07/04/24) Surgery Performed Operation Date: 07/07/24 09:00 <No data on this case meets the specified criteria> Operation Date: 07/08/24 16:45 Actual Procedures p Exploratory Laparotomy with lysis of adhesions - Aneudy Diggs MD Occupational Therapy Treatment Note M2 OT-IP Current Condition Start: 07/10/24 15:42 Freq: Status: Active Protocol: Document 07/10/24 15:43 RAJAN (Rec: 07/10/24 16:05 [email or web address] [id number]) Occupational Therapy Current Condition Current Condition Evaluation Date 07/10/24 Treatment Diagnosis SBO, weakness Diagnosis Onset Date 07/04/24 M3 OT- IP Subjective and Pain Start: 07/10/24 15:42 Freq: Status: Active Protocol: Document 07/11/24 09:35 CCC (Rec: 07/11/24 09:42 CCC [id number]) OT- Subjective Occupational Therapy Visit Type Type Treatment Note Visit Start Time 08:55 Visit Stop Time 09:25 Occupational Therapy Visit Comments Patient Comments Pt complaining of left shoulder pain. Patient/Caregiver Goals To go home. OT Pain Assessment Pain When Pain Assessed At Rest Pain Present Pain Present Pain Reported Location Left Shoulder Intensity 7 Scale Used Numeric (0 - 10) Description Cramping,Spasm M4 OT- IP ADL's Start: 07/10/24 15:42 Freq: Status: Active Protocol: Document 07/10/24 15:43 RAJAN (Rec: 07/10/24 16:05 TJOHNSTON [id number]) OT ADL-Grooming General Evaluation Grooming Ability Standby Assistance Areas Needing Assistance Retrieving/Set-up of Grooming Items Comments OT Grooming Comments pt performed hair brushing while standing sink side. pt unable to complete task due to poor activity tolerance. OT ADL-Oral Care Comments Oral Care Comments pt declined, saying he had performed earlier OT ADL-Dressing General Eval Upper Body Dressing Ability Standby Assistance Lower Body Dressing Ability Contact Guard Assistance Comments OT Dressing Comments pt donned and doffed sock while sitting EOB. Pt is able to perform, but has stiff guarded posture due to abdominal pain. pt declined performing other BADL due to being tired. overall pt demonstrates decreased activity tolerance. OT ADL-Toileting Comments OT Toileting Comments pt declines toileting at time of eval. OT ADL-Bathing Comments OT Bathing Comments pt declines bathing at time of eval. Pt performs standing shower at home. Pt would benefit from seated EOB sponge bath or seated shower at current level of activity tolerance. M5 OT- IP IADL's Start: 07/10/24 15:42 Freq: Status: Active Protocol: Document 07/10/24 15:43 RAJAN (Rec: 07/10/24 16:05 TIRSOMDELOY [id number]) OT-Instrumental Activities of Daily Living Deficits IADL Deficits Identified No Deficits Home Safety Awareness Awareness of Need for Assistance at Home Good Awareness Ability to Problem Solve Emergency Able to Problem Solve Situations Medication Management Medication Management No Deficits Identified Money Management Money Management No Deficits Identified Meal Preparation Meal Preparation Caregiver Provides Assist Second Officer Second Officer Caregiver Provides Assist Driving Driving Caregiver Provides Assist Driving Comments pt has been driving, but spouse can assist M6 OT- IP Functional Cognition Start: 07/10/24 15:42 Freq: Status: Active Protocol: Document 07/10/24 15:43 RAJAN (Rec: 07/10/24 16:05 [facility] [id number]) Cognitive Factors Limiting Selfcare Function Cognitive Ability Level of Alertness Alert Patient Orientation Name,Age,Situation Attention Span Ability Capable of Focused Attention, Capable of Sustained Attention Ability to Follow Commands Able to Follow Multi-Step Commands Memory Description No Deficits Noted Safety Awareness No Deficits Noted Problem Solving Ability No deficits Noted OT- Vision and Hearing OT- Hearing Assessment OT- Hearing Assessment WFL OT- Vision Assessment Visual Acuity WFL M7 OT- IP Mobility and Balance Start: 07/10/24 15:42 Freq: Status: Active Protocol: Document 07/10/24 15:43 RAJAN (Rec: 07/10/24 16:05 [facility] [id number]) OT- Bed Mobility Assessment Supine to Sit Supine to Sit Assist Minimal Assistance Sit to Supine Sit to Supine Assist Minimal Assistance Scooting Scooting to Edge of Bed Standby Assistance Scooting Up and Down in Bed Maximum Assistance OT-Transfer Assessment Sit to and From Stand Sit to and from Stand Contact Guard Assistance, Minimal Assistance Transfers Transfer Ability Contact Guard Assistance Technique Transfer Destination Bed Transfer Technique Stand Step Pivot Devices Transfer Assistive Devices Gait Belt,Front Wheeled Walker Comments Mobility Comments pt requires vcs for safety awareness and hand placement on FWW OT- Gait Assessment Gait Gait Assistance Required: Contact Guard Assist Distance (Feet) 20 Assistive Devices Assistive Device Gait Belt,Front Wheeled Walker Comments Gait Ability Comments pt amb from bed to sink for sink side ADLs and back to the bed. pt is SOB after walk and standing time at sink. pt requirers vcs to look up while walking OT- Balance Assessment Sitting Balance and Reactions Static Sitting Balance Ability Normal Dynamic Sitting Balance Ability Good Standing Balance and Reactions Static Standing Balance Ability Good Dynamic Standing Balance Ability Good M8 OT- IP Objective Assessments Start: 07/10/24 15:42 Freq: Status: Active Protocol: Document 07/11/24 09:35 [facility] (Rec: 07/11/24 09:42 [facility] [id number]) OT-Muscle Tone Assessment Comments Muscle Tone Comments Pt needing vc to relax his left shoulder as tends to keep it elevated. Able to support his left arm with a pillow to help promote pt to relax. Able to to gentle massage to his shoulder. Spoke to nursing whether pt may benefit from a muscle relaxer. M9 OT- IP Assessment and Plan Start: 07/10/24 15:42 Freq: Status: Active Protocol: Document 07/11/24 09:35 [facility] (Rec: 07/11/24 09:42 [facility] [id number]) OT Summary Assessment and Plan Potential Rehabilitation Potential Excellent Analytic Complexity at Evaluation Low Summary OT Impairments Pain,Strength,Balance, Functional Mobility,Grooming, Dressing,Toileting,Bathing, Toilet Transfers,Shower Transfers,Activity Tolerance Progress Towards Goals Progressing Toward Goals Assessment Summary Pt not wanting to get out of bed at this time and waiting to stay in bed to eat. Pt complaining of left shoulder pain, educated of to take deep breaths, be mindful of his positioning as pt tends to keep his shoulders elevated when just sitting. Pt looking to go home when medically stable. Goals Grooming Goal Independent Dressing Goal Independent Toileting Goal Independent Bathing Goal Independent Toilet Transfer Goal Independent Shower Transfer Goal Independent Days to Meet Goals 4 Frequency of Treatment Frequency Of Treatment Once a Day Treatment Plan OT Treatment Plan ADL Training,Functional Mobility,Therapeutic Exercises ,Patient/Family Education Discharge Recommendations OT Discharge Recommendations Home,Home with Assistance Home Equipment Needs shower chair/stool Transportation Needs at Discharge Private Vehicle
--- NOTE | 2024-07-11 10:46 | DIET.PN1 ---
Dietary Progress Note Assessment: Met w/ pt at bedside this morning, did not eat clear liquid tray for dinner yesterday, uneaten clear liquid breakfast tray in front of pt at visit. Pt reporting no appetite at visit and pain in shoulder. Pain noted by OT, who discussed it with nursing and in rounds. K+, Mg, Phos within normal limits. TPN can be advanced to 1 L Clinimix 5/20 running at 42 mL/h this evening. Will monitor for diet advancement per surgery and diet tolerance. Ht: 170.18 cm Wt: 55 kg BMI: 18.2 Last BM: 06/29/24 (07/08/24 15:48) MNA: 8 Deni Score: 19 Diet: 07/09/24 Dinner Clear Liquid Diet Diet Modifications: Nutrition Percent Meal Consumed 0% 07/10/24 18:00 Percent Meal Consumed 100% 07/09/24 18:42 Labs: RBC 3.36 X10^6/uL (4.5-5.9) L 07/11/24 05:32 Hgb 10.6 g/dL (13.5-17.5) L 07/11/24 05:32 Hct 31.5 % (41-53) L 07/11/24 05:32 Creatinine 0.55 mg/dL (0.66-1.25) L 07/11/24 05:32 Electronically Signed by: Ellen Grove 07/11/24 10:46 Clinical Dietitian [address] [address]
[2024-07-11] MEDS: methocarbamoL 500 MG TABLET 750 MG PO ×2 (11:00→21:00)
--- NOTE | 2024-07-11 11:40 | PT.IPTN ---
Current Diagnoses Unspecified intestinal obstruction, unspecified as to partial versus complete obstruction (07/04/24) Surgery Performed Operation Date: 07/07/24 09:00 <No data on this case meets the specified criteria> Operation Date: 07/08/24 16:45 Actual Procedures p Exploratory Laparotomy with lysis of adhesions - Aneudy Diggs MD Physical Therapy Treatment Note M2 PT-IP Current Condition Start: 07/10/24 14:01 Freq: NEEDED Status: Active Protocol: Document 07/10/24 14:02 KJ (Rec: 07/10/24 14:14 KJ [id number]) Physical Therapy Current Condition Current Condition Evaluation Date 07/10/24 Treatment Diagnosis General weakness Onset Date 07/04/24 M3 PT-IP Subjective Start: 07/10/24 14:01 Freq: NEEDED Status: Active Protocol: Document 07/11/24 10:23 MB (Rec: 07/11/24 11:40 MB [id number]) Subjective Physical Therapy Visit Type Type Treatment Note Visit Start Time 10:23 Visit Stop Time 11:20 Number of CONTESTANT COORDINATOR Visits 0 Physical Therapy Visit Comments Patient Comments nearby and pt states that he is having neck pain/ stiffness. He denies previous neck issues but PT sees from previous PT note that he has had cervical fusion in the past. Therapy Pain Assessment Pain When Pain Assessed During Mobility Pain Present Pain Present Pain Reported M4 PT-IP Mobility and Gait Start: 07/10/24 14:01 Freq: NEEDED Status: Active Protocol: Document 07/11/24 10:23 MB (Rec: 07/11/24 11:40 MB [id number]) PT-Bed Mobility Assessment Rolling Type of Rolling Roll to Left Level of Assist Contact Guard Assistance,1 Person Assistance Supine to Sit Supine to Sit Contact Guard Assistance,1 Person Assistance,Head of Bed Elevated,Bedrails Scooting Scooting to Edge of Bed Contact Guard Assistance PT-Transfer Assessment Sit to and From Stand Sit to and from Stand Minimal Assistance,1 Person Assistance,Use of Upper Extremities Equipment Transfer Assistive Device Gait Belt,Front Wheeled Walker Orthotic/Prosthetic Devices or Brace: No Transfers Transfer Destination Chair Transfer Technique A few steps Transfer Ability Level of Assist Minimal Assistance,1 Person Assistance,Use of Upper Extremities Comments Mobility Comments Poor safety awareness and pt starts standing up before PT has gait belt on and walker nearby, slow and antalgic movement and pt takes a long time to mobilize and requires ongoing encouragement to get started. Pt states he does not feel like doing steps today. Gait Assessment Gait Gait Assistance Required: Minimum Assistance Distance (Feet) 3 Able to Maintain Weight Bearing Status Yes During Gait Assistive Devices Assistive Device Gait Belt,Front Wheeled Walker Orthotic/Prosthetic Devices or Brace: No Gait Deviations General Gait Pattern Antalgic,Decreased Stride Length,Decreased Feet Clearance,Flexed Trunk,Step-to Gait,Wide Based Gait Factors Limiting Gait Function Factors Limiting Gait Function Decreased Activity Tolerance, Decreased Strength,Difficulty Following Directions,Limited Range of Motion,Pain,Poor Balance,Poor Safety Awareness Comments Gait Comments Pt reports pain in neck and abdomen with mobility he does not rate when PT asks x3 during treatment PT-Balance Assessment Sitting Balance and Reactions Static Sitting Balance Ability Fair Dynamic Sitting Balance Ability Fair Standing Balance and Reactions Static Standing Balance Ability Fair Dynamic Standing Balance Ability Poor Device Used RW M5 PT-IP Objective Assessments Start: 07/10/24 14:01 Freq: NEEDED Status: Active Protocol: Document 07/10/24 14:02 KJ (Rec: 07/10/24 14:14 KJ [id number]) Orientation Orientation/Cognition Level of Alertness Alert Orientation Name,Age,Birthday,Month,Date, Year,Place,Situation Safety Awareness Understands Safety Issues Gross Range of Motion Upper Extremity ROM Assessment Within Functional Limits Lower Extremity ROM Assessment Within Functional Limits Impairments flex in hips/knees Strength Upper Extremity Strength Assessment Within Functional Limits Lower Extremity Strength Assessment Within Functional Limits Comments Strength Comments atrophy in calf mms Coordination Assessment Gross Coordination Gross Coordination WNL M6 PT-IP Treatment Start: 07/10/24 14:01 Freq: NEEDED Status: Active Protocol: Document 07/11/24 10:23 MB (Rec: 07/11/24 11:40 MB [id number]) Physical Therapy Treatment Other Treatments Other Treatment Performed Cervical rotation and scapular retraction educated in sitting and pt does not perform much, has some confusion with some command- following. M7 PT-IP Assessment and Plan Start: 07/10/24 14:01 Freq: NEEDED Status: Active Protocol: Document 07/11/24 10:23 MB (Rec: 07/11/24 11:40 MB [id number]) PT Summary Assessment and Plan Potential Rehabilitation Potential Fair Summary Impairments Pain,ROM,Strength,Balance, Coordination,Tone,Cognition, Bed Mobility,Transfers,Gait, Activity Tolerance Progress Towards Goals Slow Progress due to Pain Goals Bed Mobility Goal Independent Transfer Goal Standby Assistance Gait Goal Standby Assistance Gait Distance 150' Other Goals ascend/descend 4 steps w/rail and CGA Days to Meet Goals 3 Frequency of Treatment Frequency Of Treatment Once a Day Treatment Plan Physical Therapy Treatment Plan Bed Mobility Training,Transfer Training,Gait Training, Therapeutic Exercise,Balance Retraining,Discharge Planning, Hot or Cold Pack,Neuromuscular Re-ed,Coordination Retraining ,Manual Therapy Other Recommendations and Next Treatment Increase gait and perform Focus steps if able Precautions Other Precautions Will benefit from log rolling d/c abdominal pain Weight Bearing Status Weight Bearing Status Weight Bear as Tolerated Recommendations To Nursing Amount of Assist Needed 1 Person Assist Discharge Recommendations PT Discharge Recommendations Home Health Equipment Needed for Home Before May benefit from having a Discharge front wheeled walker
[2024-07-11 12:00] VITALS: BP 118/70; PULSE 76; RESP 16; TEMP 36.9; O2SAT 97
--- NOTE | 2024-07-11 12:36 | PM.PN.1 ---
Subjective Subjective Interval history: 83 M with sbo, s/p ex lap with ELIUD. Tolerating some clears today. No gas or BM reported. Exam Vital Signs (past 8 hours): Oxygen Delivery Method Room Air Oxygen Flow Rate 0 Narrative Exam Narrative: NAD, alert and oriented. Fluent speech. Lungs are clear, normal rate and effort. Heart is regular, no murmur gallop or rub. Abdomen is soft, non distended. Appropriately tender around incisions. Extremities are free of edema. Objective Labs 07/11/24 05:32 07/11/24 05:32 Labs: Laboratory Results - last 24 hr 07/11/24 05:32 WBC 11.2 H RBC 3.36 L Hgb 10.6 L Hct 31.5 L MCV 93.9 MCH 31.5 MCHC 33.6 RDW 15.1 H Plt Count 294 Neut % (Auto) 78.3 H Lymph % (Auto) 11.8 L [place] % (Auto) 8.4 Eos % (Auto) 1.1 L Baso % (Auto) 0.4 Neut # (Auto) 8700 H Lymph # (Auto) 1300 [place] # (Auto) 900 Eos # (Auto) 100 Baso # (Auto) 0 Sodium 133 L Potassium 4.1 Chloride 105 Carbon Dioxide 22 BUN 14 Creatinine 0.55 L Estimated GFR > 60 BUN/Creatinine Ratio 25.5 H Glucose 113 H Calcium 7.8 L Phosphorus 2.4 D Magnesium 1.9 Total Bilirubin 0.5 AST 26 ALT 13 Alkaline Phosphatase 71 Total Protein 4.7 L Albumin 2.4 L Globulin 2.3 Albumin/Globulin Ratio 1.0 PFSH Medical History History of anemia Unspecified disturbances of skin sensation Surgical History H/O exploratory laparotomy History of spinal fusion Social History household members: spouse Smoking Status: Former smoker alcohol intake: former Assessment & Plan Assessment & Plan narrative: 1. SBO secondary to adhesions. Present on admission and active. Slowly improving. - s/p ex-lap with ELIUD with general surgery. - advance diet per surgery recommendations, still no gas or BM. Discussed care and ongoing planning with surgery today. 2. CLAUDIA, present on admission and resolved. - likely due to dehydration. Cr 1.24 on admit from 0.7 at baseline. Now improved / resolved 3. Severe acute protein malnutrition, present on admission and active. - recent 7lb weight loss, BMI 18.2 at age 83, appears very thin and malnourished. 4. BPH, present on admission and stable. - continue flomax as able. 5. HTN, present on admission and stable. - hold home irbesartan, propranolol, amlodipine for now, BP is still within normal limits today. 6. Hypokalemia, hypophosphatemia, hyponatremia - replete as needed with TPN formulation adjustments PLAN: -CLD, discussed with surgery and patient can advance diet as tolerated but will keep on clears today. -continue analgesia, currently with IV tylenol, dilaudid. But will change to PO tylenol today, PO oxycodone and IV dilaudid for breakthrough pain if needed. -continue PT OT -BP is controlled still, although creeping up a bit. continue hold home antihypertensives. -Will continue TPN tonight, can stop once PO intake improves. Adjustments per pharmacy. -Na a bit low today, at 133. Continue to follow. Stopped IV fluids. SOPHY: 2-3 more days likely, pending resumption of bowel function after surgery. PT/OT recommendations are for home, likely with home health. Time-Based Coding :: [TOTAL MINUTES] spent with patient and on the chart (including review of chart, obtaining history, exam, reviewing outside data, placing orders, documenting exam and treatment plan, and counseling patient) on [DATE]. Quality VTE Deep Vein Thrombosis/Pulmonary Embolism Present on Admission: No
--- NOTE | 2024-07-11 13:46 | CM.DPNOTE ---
DCP Note DYE HOUSE VAT WORKER reviewed EMR. Per hospitalist in morning rounds, pt tolerating clears. Likely another day or so before dc. Per PT note continue to rec HH. OT rec is for home with assistance. DYE HOUSE VAT WORKER met with pt and spouse in room. Report [facility] able to accept. Appreciated update. Deny new CM needs. P: dc home when medically stable/as diet continues to advance. Home with [facility] for RN/PT. Likely will need priority boarding pass for ferry home. CM team will continue to follow closely. ALONSO Pope
[2024-07-11] MEDS: OXYCODONE IR 5 MG TABLET PO ×2 (14:41→20:59)
--- NOTE | 2024-07-11 15:23 | P.PN_ITS ---
Subjective Subjective Date Patient Seen: 07/11/24 Interval history: Feels okay today Slipping clears No flatus yet Exam Vital Signs (past 8 hours): - 07/11/24 08:00 07/11/24 12:00 Temperature 97.3 F L 98.4 F Pulse Rate 71 76 Respiratory Rate 17 16 Blood Pressure 128/72 118/70 Pulse Oximetry 97 97 Oxygen Delivery Method Room Air Oxygen Flow Rate 0 Narrative Exam Narrative: Abdomen is soft Incision clean dry and intact Objective Labs 07/11/24 05:32 07/11/24 05:32 Labs: Laboratory Results - last 24 hr 07/11/24 05:32 WBC 11.2 H RBC 3.36 L Hgb 10.6 L Hct 31.5 L MCV 93.9 MCH 31.5 MCHC 33.6 RDW 15.1 H Plt Count 294 Neut % (Auto) 78.3 H Lymph % (Auto) 11.8 L [place] % (Auto) 8.4 Eos % (Auto) 1.1 L Baso % (Auto) 0.4 Neut # (Auto) 8700 H Lymph # (Auto) 1300 [place] # (Auto) 900 Eos # (Auto) 100 Baso # (Auto) 0 Sodium 133 L Potassium 4.1 Chloride 105 Carbon Dioxide 22 BUN 14 Creatinine 0.55 L Estimated GFR > 60 BUN/Creatinine Ratio 25.5 H Glucose 113 H Calcium 7.8 L Phosphorus 2.4 D Magnesium 1.9 Total Bilirubin 0.5 AST 26 ALT 13 Alkaline Phosphatase 71 Total Protein 4.7 L Albumin 2.4 L Globulin 2.3 Albumin/Globulin Ratio 1.0 PFSH Medical History History of anemia Unspecified disturbances of skin sensation Surgical History H/O exploratory laparotomy History of spinal fusion Social History household members: spouse Smoking Status: Former smoker alcohol intake: former Assessment & Plan Assessment and plan (1) Small bowel obstruction: Status: Acute Plan Advance diet once passing flatus Time-Based Coding :: [TOTAL MINUTES] spent with patient and on the chart (including review of chart, obtaining history, exam, reviewing outside data, placing orders, documenting exam and treatment plan, and counseling patient) on [DATE]. Quality VTE Deep Vein Thrombosis/Pulmonary Embolism Present on Admission: No
[2024-07-11 16:00] VITALS: BP 153/80; PULSE 70; RESP 16; TEMP 37.1; O2SAT 97
[2024-07-11] MEDS: AA 5 %/CALCIUM/LYTES/DEXT 20 % 1,000 ML with MULTIVITAMIN 10 ML, TRACE ELEMENTS 1 ML, T... 42 ML IV (17:23)
[2024-07-11 20:00] VITALS: BP 145/77; PULSE 73; RESP 18; O2SAT 95
[2024-07-11] MEDS: MELATONIN 3 MG TABLET 6 MG PO (20:59)
[2024-07-12] VITALS (7 sets, daily range): BP systolic 107–156; BP diastolic 57–84; PULSE 68–93; RESP 16–20; TEMP 36.4–37.9; O2SAT 94–98
[2024-07-12] MEDS: OXYCODONE IR 5 MG TABLET PO ×4 (04:51→18:19)
[2024-07-12] MEDS: methocarbamoL 500 MG TABLET 750 MG PO ×3 (04:52→19:36)
[2024-07-12 05:17] LABS: Add Manual Diff / Slide Review NO; Basophils Absolute Auto 100 /uL (0-100); Basophils Percent Auto 0.5 % (0-2); Eosinophils Absolute Auto 100 /uL (0-450); Eosinophils Percent Auto 0.4 % (2-4); Hematocrit 30.3 % (41-53); Hemoglobin 10.1 g/dL (13.5-17.5); Lymphocytes Absolute Auto 1200 /uL (1100-4500); Lymphocytes Percent Auto 6.6 % (25-40); Mean Corpuscular HGB Conc 33.5 % (30-36); Mean Corpuscular Hemoglobin 31.4 PG (26-34); Mean Corpuscular Volume 93.7 fL (80-100); Monocytes Absolute Auto 1100 /uL (0-900); Neutrophils Absolute Auto 15800 /uL (1500-7000); Neutrophils Percent Auto 86.5 % (50-75); Platelet Count 306 X10^3/uL (150-400); Red Blood Cell Count 3.23 X10^6/uL (4.5-5.9); Red Cell Distribution Width 15.1 % (11.6-14.8); White Blood Cell Count 18.3 X10^3/uL (4.5-11.0)
[2024-07-12 05:31] LABS: Alanine Aminotransferase 16 IU/L (<50); Albumin 2.5 g/dL (3.5-5.0); Alkaline Phosphatase 71 U/L (38-126); Aspartate Aminotransferase 28 IU/L (17-59); BUN Creatinine Ratio 22.5 (6-22); Bilirubin Total 0.5 mg/dL (0.2-1.3); Blood Urea Nitrogen 16 mg/dL (9-20); Calcium 8.2 mg/dL (8.4-10.2); Carbon Dioxide 25 mmol/L (22-32); Chloride 101 mmol/L (98-107); Estimated Glomerular Filt Rate > 60 mL/min (>60); Globulin 2.6 g/dL (1.7-4.1); Glucose 130 mg/dL (80-110); HEMOLYSIS < 15 (0-50); Magnesium 1.9 mg/dL (1.6-2.3); Phosphorous 2.4 mg/dL (2.3-3.7); Potassium 3.8 mmol/L (3.4-5.1); Sodium 131 mmol/L (137-145); Total Protein 5.1 g/dL (6.3-8.2)
[2024-07-12] MEDS: FINASTERIDE 5 MG TABLET PO (08:03)
[2024-07-12] MEDS: TAMSULOSIN 0.4 MG CAPSULE PO (08:03)
[2024-07-12] MEDS: ENOXAPARIN 40 MG/0.4 ML SYRINGE SUBCUT (08:06)
--- NOTE | 2024-07-12 10:22 | DIET.PN1 ---
Dietary Progress Note Assessment: Met w/ pt at bedside, is tolerating some clear liquids, diet was advanced to full liquids today per surgery. Recc advancing TPN to 1.5 L Clinimix 5/20 running at 62 mL/h this evening. Recc ensuring pt tolerates diet advancement today and is able to meet 75% of EER orally before d/c of TPN. Pt follows vegan diet. Discussed options, provided handout, and provided educ on ensuring adequate protein intake when regular diet resumes/ upon d/c. Coordinated with unit host/kitchen for appropriate diet and vegan protein supplementation with meals to provide adequate intake during admission. Ht: 170.18 cm Wt: 55 kg BMI: 18.2 Last BM: 06/29/24 (07/08/24 15:48) MNA: 8 Deni Score: 19 Diet: 07/12/24 Lunch Full Liquid Diet Diet Modifications: Nutrition Percent Meal Consumed 50% 07/12/24 10:18 Percent Meal Consumed 0% 07/10/24 18:00 Labs: RBC 3.23 X10^6/uL (4.5-5.9) L 07/12/24 04:45 Hgb 10.1 g/dL (13.5-17.5) L 07/12/24 04:45 Hct 30.3 % (41-53) L 07/12/24 04:45 Creatinine 0.71 mg/dL (0.66-1.25) 07/12/24 04:45 Electronically Signed by: Ellen Grove 07/12/24 10:22 Clinical Dietitian [address] [id number]
[2024-07-12] MEDS: METHSCOPOLAMINE 7.5 EACH PO (10:29)
--- NOTE | 2024-07-12 11:09 | OT.IPNOTE ---
Pt's coming out of the room and requesting that pt rests and not to be seen. Able to touch base with her of equipment needs of shower chair and FWW. Pt states to get items from [facility].
--- NOTE | 2024-07-12 11:39 | CM.DPNOTE ---
DCP Note FOOD SERVICE reviewed EMR. Per dietary in morning rounds, pt remains on TPN at this time. Continuing to tolerate clears, likely will continue to advance diet. Per hospitalist, potential dc home tomorrow with . Per chart review, pt has yet to pass gas. FOOD SERVICE emailed Marie at [facility] with the update. CM team will email Marie at [facility] with dc sum f2f and order at discharge. P: anticipate dc home to [facility] with spouse and [facility] to follow for RN/PT. F2f done, order needed. CM team will f/u for medical priority boarding pass if needed. ALONSO Pope
[2024-07-12 11:59] LABS: Triglycerides 66 mg/dL (35-150)
--- NOTE | 2024-07-12 12:15 | PT.IPTN ---
Current Diagnoses Unspecified intestinal obstruction, unspecified as to partial versus complete obstruction (07/04/24) Surgery Performed Operation Date: 07/07/24 09:00 <No data on this case meets the specified criteria> Operation Date: 07/08/24 16:45 Actual Procedures p Exploratory Laparotomy with lysis of adhesions - Aneudy Diggs MD Physical Therapy Treatment Note M2 PT-IP Current Condition Start: 07/10/24 14:01 Freq: NEEDED Status: Active Protocol: Document 07/10/24 14:02 KJ (Rec: 07/10/24 14:14 KJ [id number]) Physical Therapy Current Condition Current Condition Evaluation Date 07/10/24 Treatment Diagnosis General weakness Onset Date 07/04/24 M3 PT-IP Subjective Start: 07/10/24 14:01 Freq: NEEDED Status: Active Protocol: Document 07/12/24 15:42 TS (Rec: 07/12/24 15:49 TS [id number]) Subjective Physical Therapy Visit Type Type Treatment Note Visit Start Time 12:15 Visit Stop Time 12:40 Number of DENTAL CERAMIST Visits 1 Physical Therapy Visit Comments Patient Comments Pt found resting in bed, he is agreeable to PT. Therapy Pain Assessment Pain When Pain Assessed During Mobility Pain Present Pain Present Pain Reported M4 PT-IP Mobility and Gait Start: 07/10/24 14:01 Freq: NEEDED Status: Active Protocol: Document 07/12/24 15:42 TS (Rec: 07/12/24 15:49 TS [id number]) PT-Bed Mobility Assessment Rolling Type of Rolling Roll to Left Level of Assist Standby Assistance Supine to Sit Supine to Sit Standby Assistance,Bedrails Sit to Supine Sit to Supine Minimal Assistance,1 Person Assistance Scooting Scooting to Edge of Bed Standby Assistance PT-Transfer Assessment Sit to and From Stand Sit to and from Stand Standby Assistance Equipment Transfer Assistive Device Gait Belt,Front Wheeled Walker Orthotic/Prosthetic Devices or Brace: No Comments Mobility Comments Pt performed logroll to R side SBA. Supine to sit SBA with cues for BUE support. Pt ambulated ~200'SBA with slow step thru gait and FWW. He performed steps x6 SBA with use of rails. Pt ambulated back to room. performed STS x5 in ~14 secs. Pt was left back in bed, all needs met. Gait Assessment Gait Gait Assistance Required: Standby Assistance Distance (Feet) 200 Able to Maintain Weight Bearing Status Yes During Gait Assistive Devices Assistive Device Gait Belt,Front Wheeled Walker Orthotic/Prosthetic Devices or Brace: No Gait Deviations General Gait Pattern Antalgic,Decreased Stride Length,Decreased Feet Clearance,Flexed Trunk,Step-to Gait,Wide Based Gait Factors Limiting Gait Function Factors Limiting Gait Function Decreased Activity Tolerance, Decreased Strength,Difficulty Following Directions,Limited Range of Motion,Pain,Poor Balance,Poor Safety Awareness Stair Climbing Assessment Evaluation Level of Assist On Stairs Standby Assistance Devices Stair Climbing Assistive Devices Left Railing,Right Railing Technique/Endurance Stair Climbing Direction Ascend and Descend Stair Climbing Technique Step to Step Number of Steps Climbed 6 PT-Balance Assessment Sitting Balance and Reactions Static Sitting Balance Ability Good Dynamic Sitting Balance Ability Fair Standing Balance and Reactions Static Standing Balance Ability Good Dynamic Standing Balance Ability Fair Device Used FWW M5 PT-IP Objective Assessments Start: 07/10/24 14:01 Freq: NEEDED Status: Active Protocol: Document 07/10/24 14:02 KJ (Rec: 07/10/24 14:14 KJ [id number]) Orientation Orientation/Cognition Level of Alertness Alert Orientation Name,Age,Birthday,Month,Date, Year,Place,Situation Safety Awareness Understands Safety Issues Gross Range of Motion Upper Extremity ROM Assessment Within Functional Limits Lower Extremity ROM Assessment Within Functional Limits Impairments flex in hips/knees Strength Upper Extremity Strength Assessment Within Functional Limits Lower Extremity Strength Assessment Within Functional Limits Comments Strength Comments atrophy in calf mms Coordination Assessment Gross Coordination Gross Coordination WNL M6 PT-IP Treatment Start: 07/10/24 14:01 Freq: NEEDED Status: Active Protocol: Document 07/12/24 15:42 TS (Rec: 07/12/24 15:49 [id number]) Physical Therapy Treatment Education Education Provided Safety M7 PT-IP Assessment and Plan Start: 07/10/24 14:01 Freq: NEEDED Status: Active Protocol: Document 07/12/24 15:42 TS (Rec: 07/12/24 15:49 TS [id number]) PT Summary Assessment and Plan Potential Rehabilitation Potential Fair Summary Impairments Pain,ROM,Strength,Balance, Coordination,Tone,Cognition, Bed Mobility,Transfers,Gait, Activity Tolerance Progress Towards Goals Progressing Toward Goals Assessment Summary Darwin is making progress with his mobility this session. He is SBA for most bed mobility, requries Marita for LE's into bed. He progressed his gait to ~200'SBA with FWW. He has been ambulating in the hallway with nursing. He requires some cues for logroll and safety. PT is recommending pt return home with assist. Goals Bed Mobility Goal Independent Transfer Goal Standby Assistance Gait Goal Standby Assistance Gait Distance 150' Other Goals ascend/descend 4 steps w/rail and CGA Days to Meet Goals 3 Frequency of Treatment Frequency Of Treatment Once a Day Treatment Plan Physical Therapy Treatment Plan Bed Mobility Training,Transfer Training,Gait Training, Therapeutic Exercise,Balance Retraining,Discharge Planning, Hot or Cold Pack,Neuromuscular Re-ed,Coordination Retraining ,Manual Therapy Precautions Other Precautions Will benefit from log rolling d/c abdominal pain Weight Bearing Status Weight Bearing Status Weight Bear as Tolerated Recommendations To Nursing Amount of Assist Needed 1 Person Assist Discharge Recommendations PT Discharge Recommendations Home with Assistance Equipment Needed for Home Before Pt has FWW Discharge
--- NOTE | 2024-07-12 13:52 | PM.PN.1 ---
Subjective Subjective Date Patient Seen: 07/12/24 Time Patient Seen: 09:45 Interval history: 83 M with sbo, s/p ex lap with ELIUD 07/08/2024, stating that he has passed flatus overnight but no stooling at this point. He is advanced to a full liquid diet at lunch. Exam Vital Signs (past 8 hours): - 07/12/24 08:00 Temperature 97.6 F Pulse Rate 68 Respiratory Rate 16 Blood Pressure 114/57 L Pulse Oximetry 95 Oxygen Delivery Method Room Air Oxygen Flow Rate 0 Narrative Exam Narrative: NAD, alert and oriented. Fluent speech. Lungs are clear, normal rate and effort. Heart is regular, no murmur gallop or rub. Abdomen is soft, non distended. Appropriately tender around incisions. Extremities are free of edema. Objective Labs 07/12/24 04:45 07/12/24 04:45 Labs: Laboratory Results - last 24 hr 07/12/24 04:45 WBC 18.3 H D RBC 3.23 L Hgb 10.1 L Hct 30.3 L MCV 93.7 MCH 31.4 MCHC 33.5 RDW 15.1 H Plt Count 306 Neut % (Auto) 86.5 H Lymph % (Auto) 6.6 L [place] % (Auto) 6.0 Eos % (Auto) 0.4 L Baso % (Auto) 0.5 Neut # (Auto) 45488 H Lymph # (Auto) 1200 [place] # (Auto) 1100 H Eos # (Auto) 100 Baso # (Auto) 100 Sodium 131 L Potassium 3.8 Chloride 101 Carbon Dioxide 25 BUN 16 Creatinine 0.71 Estimated GFR > 60 BUN/Creatinine Ratio 22.5 H Glucose 130 H Calcium 8.2 L Phosphorus 2.4 Magnesium 1.9 Total Bilirubin 0.5 AST 28 ALT 16 Alkaline Phosphatase 71 Total Protein 5.1 L Albumin 2.5 L Globulin 2.6 Albumin/Globulin Ratio 1.0 Triglycerides 66 PFSH Medical History History of anemia Unspecified disturbances of skin sensation Surgical History H/O exploratory laparotomy History of spinal fusion Social History household members: spouse Smoking Status: Former smoker alcohol intake: former Assessment & Plan Assessment & Plan narrative: 1. SBO secondary to adhesions. Present on admission and active. Slowly improving. - s/p ex-lap with ELIUD with general surgery. - advance diet per surgery recommendations, still no gas or BM. Discussed care and ongoing planning with surgery today. - rise in white blood count to 18.3 today noted but without fever. He appears to be clinically improving. Continue to monitor. 2. CLAUDIA, present on admission and resolved. - likely due to dehydration. Cr 1.24 on admit from 0.7 at baseline. Now improved / resolved 3. Severe acute protein malnutrition, present on admission and active. - recent 7lb weight loss, BMI 18.2 at age 83, appears very thin and malnourished. - continue TPN, possibly wean tomorrow if diet and caloric intake art [place] and 4. BPH, present on admission and stable. - continue flomax as able. 5. HTN, present on admission and stable. - hold home irbesartan, propranolol, amlodipine for now, BP is starting to rise at this point though variable to low at times. 6. Hypokalemia, hypophosphatemia, hyponatremia - replete as needed with TPN formulation adjustments PLAN: -full liquid diet -continue analgesia, currently with IV tylenol, dilaudid. But will change to PO tylenol today, PO oxycodone and IV dilaudid for breakthrough pain if needed. -continue PT OT -BP is controlled still, although creeping up a bit. continue hold home antihypertensives. -Will continue TPN tonight, can stop once PO intake improves. Adjustments per pharmacy. -Na a bit low today, at 131. Continue to follow. -monitor elevation in white blood count SOPHY: 2-3 more days likely, pending resumption of bowel function after surgery. PT/OT recommendations are for home, likely with home health. Time-Based Coding :: [TOTAL MINUTES] spent with patient and on the chart (including review of chart, obtaining history, exam, reviewing outside data, placing orders, documenting exam and treatment plan, and counseling patient) on [DATE]. Quality VTE Deep Vein Thrombosis/Pulmonary Embolism Present on Admission: No IH PROFEE Charge codes Subsequent inpatient/observation care: 60308
--- NOTE | 2024-07-12 16:25 | PM.PNPO.1 ---
Subjective Subjective Date Patient Seen: 07/12/24 Time Patient Seen: 13:00 Interval history: S/P ELIUD with post op ileus and jump in WBC Exam Vital Signs (past 8 hours): - 07/12/24 13:00 Temperature 97.8 F Pulse Rate 74 Respiratory Rate 16 Blood Pressure 122/68 Pulse Oximetry 96 Oxygen Delivery Method Room Air Oxygen Flow Rate 0 Narrative Exam Narrative: +flatus, no fever, feels better. No evidence of infection on exam. Objective Labs 07/12/24 04:45 07/12/24 04:45 Labs: Laboratory Results - last 24 hr 07/12/24 04:45 WBC 18.3 H D RBC 3.23 L Hgb 10.1 L Hct 30.3 L MCV 93.7 MCH 31.4 MCHC 33.5 RDW 15.1 H Plt Count 306 Neut % (Auto) 86.5 H Lymph % (Auto) 6.6 L [place] % (Auto) 6.0 Eos % (Auto) 0.4 L Baso % (Auto) 0.5 Neut # (Auto) 14334 H Lymph # (Auto) 1200 [place] # (Auto) 1100 H Eos # (Auto) 100 Baso # (Auto) 100 Sodium 131 L Potassium 3.8 Chloride 101 Carbon Dioxide 25 BUN 16 Creatinine 0.71 Estimated GFR > 60 BUN/Creatinine Ratio 22.5 H Glucose 130 H Calcium 8.2 L Phosphorus 2.4 Magnesium 1.9 Total Bilirubin 0.5 AST 28 ALT 16 Alkaline Phosphatase 71 Total Protein 5.1 L Albumin 2.5 L Globulin 2.6 Albumin/Globulin Ratio 1.0 Triglycerides 66 PFSH Medical History History of anemia Unspecified disturbances of skin sensation Surgical History H/O exploratory laparotomy History of spinal fusion Social History household members: spouse Smoking Status: Former smoker alcohol intake: former Assessment & Plan Post-op Postoperative Procedures: Procedures Operation Date: 07/07/24 09:00 <No data on this case meets the specified criteria> Operation Date: 07/08/24 16:45 Actual Procedure Side Surgeon p Exploratory Laparotomy with lysis of adhesions Aneudy Diggs MD Postoperative status: post-op ileus Postoperative status narrative: Resolving ileus. Leukocytosis w/o other evidence of infection. Postoperative plan: advance diet Postoperative plan narrative: Trend WBC another day, CT scan tomorrow if persistent elevation or clinical change Quality VTE Deep Vein Thrombosis/Pulmonary Embolism Present on Admission: No
[2024-07-12] MEDS: FAT EMULSIONS 50 GM/250 ML EMULSION IV (18:20)
[2024-07-12] MEDS: AA 5 %/CALCIUM/LYTES/DEXT 20 % 1,500 ML with MULTIVITAMIN 10 ML, TRACE ELEMENTS 1 ML, T... 63.208 ML IV (18:20)
[2024-07-12] MEDS: MELATONIN 3 MG TABLET 6 MG PO (20:40)
[2024-07-12] MEDS: ACETAMINOPHEN 325 MG TABLET 975 MG PO (20:41)
[2024-07-12] MEDS: ONDANSETRON 4 MG/2 ML INJ IV (21:40)
[2024-07-13] VITALS (8 sets, daily range): BP systolic 100–119; BP diastolic 56–74; PULSE 64–89; RESP 12–18; TEMP 36.3–37.6; O2SAT 96–98
[2024-07-13] MEDS: OXYCODONE IR 5 MG TABLET PO ×4 (04:40→18:35)
[2024-07-13 04:58] LABS: Add Manual Diff / Slide Review NO; Basophils Absolute Auto 0 /uL (0-100); Basophils Percent Auto 0.3 % (0-2); Eosinophils Absolute Auto 100 /uL (0-450); Eosinophils Percent Auto 1.3 % (2-4); Hematocrit 28.9 % (41-53); Hemoglobin 9.8 g/dL (13.5-17.5); Lymphocytes Absolute Auto 1200 /uL (1100-4500); Lymphocytes Percent Auto 11.1 % (25-40); Mean Corpuscular HGB Conc 33.8 % (30-36); Mean Corpuscular Hemoglobin 31.6 PG (26-34); Mean Corpuscular Volume 93.6 fL (80-100); Monocytes Absolute Auto 500 /uL (0-900); Monocytes Percent Auto 4.2 % (3-14); Neutrophils Absolute Auto 9300 /uL (1500-7000); Neutrophils Percent Auto 83.1 % (50-75); Platelet Count 269 X10^3/uL (150-400); Red Blood Cell Count 3.09 X10^6/uL (4.5-5.9); Red Cell Distribution Width 14.9 % (11.6-14.8); White Blood Cell Count 11.2 X10^3/uL (4.5-11.0)
[2024-07-13 05:33] LABS: Alanine Aminotransferase 22 IU/L (<50); Albumin 2.4 g/dL (3.5-5.0); Albumin Globulin Ratio 0.9 (1.0-2.8); Alkaline Phosphatase 77 U/L (38-126); Aspartate Aminotransferase 30 IU/L (17-59); BUN Creatinine Ratio 30.8 (6-22); Bilirubin Total 0.4 mg/dL (0.2-1.3); Blood Urea Nitrogen 24 mg/dL (9-20); Calcium 8.2 mg/dL (8.4-10.2); Carbon Dioxide 26 mmol/L (22-32); Chloride 99 mmol/L (98-107); Estimated Glomerular Filt Rate > 60 mL/min (>60); Globulin 2.6 g/dL (1.7-4.1); Glucose 123 mg/dL (80-110); HEMOLYSIS < 15 (0-50); Magnesium 2.1 mg/dL (1.6-2.3); Phosphorous 3.6 mg/dL (2.3-3.7); Sodium 130 mmol/L (137-145)
[2024-07-13] MEDS: LORazepam 2 MG/ML INJ 0.5 MG IV ×3 (08:33→16:48)
[2024-07-13] MEDS: HYDROMORPHONE 0.5 MG INJ IV ×7 (08:33→18:57)
[2024-07-13] MEDS: METHSCOPOLAMINE 7.5 EACH PO (08:33)
[2024-07-13] MEDS: ENOXAPARIN 40 MG/0.4 ML SYRINGE SUBCUT (08:34)
[2024-07-13] MEDS: TAMSULOSIN 0.4 MG CAPSULE PO (08:34)
[2024-07-13] MEDS: FINASTERIDE 5 MG TABLET PO (08:34)
--- NOTE | 2024-07-13 11:38 | PT.IPTN ---
Current Diagnoses Unspecified intestinal obstruction, unspecified as to partial versus complete obstruction (07/04/24) Surgery Performed Operation Date: 07/07/24 09:00 <No data on this case meets the specified criteria> Operation Date: 07/08/24 16:45 Actual Procedures p Exploratory Laparotomy with lysis of adhesions - Aneudy Diggs MD Physical Therapy Treatment Note M2 PT-IP Current Condition Start: 07/10/24 14:01 Freq: NEEDED Status: Active Protocol: Document 07/10/24 14:02 KJ (Rec: 07/10/24 14:14 KJ [id number]) Physical Therapy Current Condition Current Condition Evaluation Date 07/10/24 Treatment Diagnosis General weakness Onset Date 07/04/24 M3 PT-IP Subjective Start: 07/10/24 14:01 Freq: NEEDED Status: Active Protocol: Document 07/13/24 12:12 TS (Rec: 07/13/24 12:22 TS [id number]) Subjective Physical Therapy Visit Type Type Treatment Note Visit Start Time 11:38 Visit Stop Time 12:12 Notes Family present Number of WIRED SWEATBAND CUTTER Visits 2 Physical Therapy Visit Comments Patient Comments Pt found resting in bed, pt is agreeable to PT. Therapy Pain Assessment Pain When Pain Assessed During Mobility Pain Present Pain Present Pain Reported M4 PT-IP Mobility and Gait Start: 07/10/24 14:01 Freq: NEEDED Status: Active Protocol: Document 07/13/24 12:12 TS (Rec: 07/13/24 12:22 TS [id number]) PT-Bed Mobility Assessment Rolling Type of Rolling Roll to Left Level of Assist Standby Assistance Supine to Sit Supine to Sit Standby Assistance,Bedrails Sit to Supine Sit to Supine Minimal Assistance,1 Person Assistance Scooting Scooting to Edge of Bed Standby Assistance Scooting Up and Down in Bed Standby Assistance PT-Transfer Assessment Sit to and From Stand Sit to and from Stand Standby Assistance Equipment Transfer Assistive Device Gait Belt,Front Wheeled Walker Orthotic/Prosthetic Devices or Brace: No Comments Mobility Comments Logroll to L side SBA with cues for use of handrails. Supine to sit SBA with BUE support. STS with FWW SBA, pt tips FWW slightly backwards, cued pt to push from bed to stand. He ambulated ~500'SBA with FWW and a slow step thru gait. He continues to perform stairs x6 with B handrails SBA . Sit to supine into bed Marita for LE's. Pt was left in bed, nursing present. Gait Assessment Gait Gait Assistance Required: Standby Assistance Distance (Feet) 500 Able to Maintain Weight Bearing Status Yes During Gait Assistive Devices Assistive Device Gait Belt,Front Wheeled Walker Orthotic/Prosthetic Devices or Brace: No Gait Deviations General Gait Pattern Antalgic,Decreased Stride Length,Decreased Feet Clearance,Flexed Trunk,Step-to Gait,Wide Based Gait Factors Limiting Gait Function Factors Limiting Gait Function Decreased Activity Tolerance, Decreased Strength,Difficulty Following Directions,Limited Range of Motion,Pain,Poor Balance,Poor Safety Awareness Stair Climbing Assessment Evaluation Level of Assist On Stairs Standby Assistance Devices Stair Climbing Assistive Devices Left Railing,Right Railing Technique/Endurance Stair Climbing Direction Ascend and Descend Stair Climbing Technique Step to Step Number of Steps Climbed 6 PT-Balance Assessment Sitting Balance and Reactions Static Sitting Balance Ability Good Dynamic Sitting Balance Ability Fair Standing Balance and Reactions Static Standing Balance Ability Good Dynamic Standing Balance Ability Fair Device Used FWW M5 PT-IP Objective Assessments Start: 07/10/24 14:01 Freq: NEEDED Status: Active Protocol: Document 07/10/24 14:02 KJ (Rec: 07/10/24 14:14 KJ [id number]) Orientation Orientation/Cognition Level of Alertness Alert Orientation Name,Age,Birthday,Month,Date, Year,Place,Situation Safety Awareness Understands Safety Issues Gross Range of Motion Upper Extremity ROM Assessment Within Functional Limits Lower Extremity ROM Assessment Within Functional Limits Impairments flex in hips/knees Strength Upper Extremity Strength Assessment Within Functional Limits Lower Extremity Strength Assessment Within Functional Limits Comments Strength Comments atrophy in calf mms Coordination Assessment Gross Coordination Gross Coordination WNL M6 PT-IP Treatment Start: 07/10/24 14:01 Freq: NEEDED Status: Active Protocol: Document 07/13/24 12:12 TS (Rec: 07/13/24 12:22 TS [id number]) Physical Therapy Treatment Education Education Provided Safety M7 PT-IP Assessment and Plan Start: 07/10/24 14:01 Freq: NEEDED Status: Active Protocol: Document 07/13/24 12:12 TS (Rec: 07/13/24 12:22 TS [id number]) PT Summary Assessment and Plan Potential Rehabilitation Potential Fair Summary Impairments Pain,ROM,Strength,Balance, Coordination,Tone,Cognition, Bed Mobility,Transfers,Gait, Activity Tolerance Progress Towards Goals Progressing Toward Goals Assessment Summary Darwin continues to make progress with his mobility. He is SBA for most bed mobility but requires Marita for LE's back into bed. He demonstrates good carryover of logroll technique. He progressed his gait to ~500'SBA with FWW. He has slow movements. PT continues to recommend home with assist. Goals Bed Mobility Goal Independent Transfer Goal Standby Assistance Gait Goal Standby Assistance Gait Distance 150' Other Goals ascend/descend 4 steps w/rail and CGA Days to Meet Goals 3 Frequency of Treatment Frequency Of Treatment Once a Day Treatment Plan Physical Therapy Treatment Plan Bed Mobility Training,Transfer Training,Gait Training, Therapeutic Exercise,Balance Retraining,Discharge Planning, Hot or Cold Pack,Neuromuscular Re-ed,Coordination Retraining ,Manual Therapy Other Recommendations and Next Treatment Balance acts. Focus Precautions Other Precautions Will benefit from log rolling d/c abdominal pain Weight Bearing Status Weight Bearing Status Weight Bear as Tolerated Recommendations To Nursing Amount of Assist Needed Standby Assistance,1 Person Assist Discharge Recommendations PT Discharge Recommendations Home with Assistance,Home Health Equipment Needed for Home Before Pt has FWW Discharge
--- NOTE | 2024-07-13 12:26 | P.PN_ITS ---
Subjective Subjective Date Patient Seen: 07/13/24 Time Patient Seen: 10:40 Interval history: 83 M with sbo, s/p ex lap with ELIUD 07/08/2024, currently on a full liquid diet but eating little, continuing to pass flatus, without bowel movements that. Exam Vital Signs (past 8 hours): - 07/13/24 07:00 Temperature 98.0 F Pulse Rate 79 Respiratory Rate 16 Blood Pressure 119/70 Pulse Oximetry 96 Oxygen Flow Rate 0 Oxygen Delivery Method Room Air Oxygen Flow Rate 0 Narrative Exam Narrative: NAD, alert and oriented. Fluent speech. Lungs are clear, normal rate and effort. Heart is regular, no murmur gallop or rub. Abdomen is soft, bowel tones present, nontender, non distended. Incision intact, without erythema. Extremities are free of edema. Objective Labs 07/13/24 04:51 07/13/24 04:51 Labs: Laboratory Results - last 24 hr 07/13/24 04:51 WBC 11.2 H RBC 3.09 L Hgb 9.8 L Hct 28.9 L MCV 93.6 MCH 31.6 MCHC 33.8 RDW 14.9 H Plt Count 269 Neut % (Auto) 83.1 H Lymph % (Auto) 11.1 L [place] % (Auto) 4.2 Eos % (Auto) 1.3 L Baso % (Auto) 0.3 Neut # (Auto) 9300 H Lymph # (Auto) 1200 [place] # (Auto) 500 Eos # (Auto) 100 Baso # (Auto) 0 Sodium 130 L Potassium 4.0 Chloride 99 Carbon Dioxide 26 BUN 24 H Creatinine 0.78 Estimated GFR > 60 BUN/Creatinine Ratio 30.8 H Glucose 123 H Calcium 8.2 L Phosphorus 3.6 D Magnesium 2.1 Total Bilirubin 0.4 AST 30 ALT 22 Alkaline Phosphatase 77 Total Protein 5.0 L Albumin 2.4 L Globulin 2.6 Albumin/Globulin Ratio 0.9 L PFSH Medical History History of anemia Unspecified disturbances of skin sensation Surgical History H/O exploratory laparotomy History of spinal fusion Social History household members: spouse Smoking Status: Former smoker alcohol intake: former Assessment & Plan Assessment & Plan narrative: 1. SBO secondary to adhesions. Present on admission and active. Slowly improving. - s/p ex-lap with ELIUD with general surgery. - advance to general diet vegan diet per surgery recommendations - WBC back down to 11 today. 2. CLAUDIA, present on admission and resolved. - likely due to dehydration. Cr 1.24 on admit from 0.7 at baseline. Now improved / resolved 3. Severe acute protein malnutrition, present on admission and active. - recent 7lb weight loss, BMI 18.2 at age 83, appears very thin and malnourished. - continue TPN, possibly wean tomorrow if diet and caloric intake advance 4. BPH, present on admission and stable. - continue tamsulosin 5. HTN, present on admission and stable. - hold home irbesartan, propranolol, amlodipine for now, BP is starting to rise at this point though remains variable to low at times. 6. Hypokalemia, hypophosphatemia, hyponatremia - replete as needed with TPN formulation adjustments PLAN: -general vegan diet -continue tylenol as needed -continue PT OT -BP is controlled still, although creeping up a bit. continue hold home antihypertensives. -Will continue TPN tonight, can stop once PO intake improves. Adjustments per pharmacy. -Na a bit low today, at 130. Continue to follow. SOPHY: 2-3 more days likely, pending resumption of bowel function after surgery. PT/OT recommendations are for home, likely with home health. Time-Based Coding :: [TOTAL MINUTES] spent with patient and on the chart (including review of chart, obtaining history, exam, reviewing outside data, placing orders, documenting exam and treatment plan, and counseling patient) on [DATE]. Quality VTE Deep Vein Thrombosis/Pulmonary Embolism Present on Admission: No IH PROFEE Charge codes Subsequent inpatient/observation care: 32141
[2024-07-13] MEDS: ACETAMINOPHEN 325 MG TABLET 975 MG PO (13:48)
[2024-07-13] MEDS: ONDANSETRON 4 MG/2 ML INJ IV ×2 (13:48→21:15)
--- NOTE | 2024-07-13 14:04 | CM.DPNOTE ---
DCP Note COLLECTIONS TECHNICIAN reviewed EMR. PT continues to rec home vs HH. Per hospitalist, pt diet advancing very slowly. Continues mix of TPN and liquid diet. Another 1-3 days likely before dc. Continues to believe that pt will not need TPN at discharge. P: Dc home with [facility] to follow for RN/PT. HH order needed. Transport with spouse/ferry. Spouse will attempt ferry reservation at dc but pt may ask for priority boarding pass. CM team will continue to follow as needed ALONSO Pope
[2024-07-13] MEDS: AA 5 %/CALCIUM/LYTES/DEXT 20 % 1,500 ML with MULTIVITAMIN 10 ML, TRACE ELEMENTS 1 ML, T... 64.042 ML IV (17:53)
[2024-07-13] MEDS: methocarbamoL 500 MG TABLET 750 MG PO (18:36)
[2024-07-13] MEDS: MELATONIN 3 MG TABLET 6 MG PO (21:06)
[2024-07-14] VITALS: BP 126/65; PULSE 71; RESP 13; TEMP 37.1; O2SAT 96
[2024-07-14] MEDS: OXYCODONE IR 5 MG TABLET PO ×2 (04:08→08:40)
[2024-07-14 05:14] VITALS: BP 133/67; PULSE 76; RESP 17; TEMP 37.3; O2SAT 96
[2024-07-14] MEDS: ACETAMINOPHEN 325 MG TABLET 975 MG PO (08:40)
[2024-07-14] MEDS: FINASTERIDE 5 MG TABLET PO (08:40)
[2024-07-14] MEDS: TAMSULOSIN 0.4 MG CAPSULE PO (08:40)
[2024-07-14] MEDS: ENOXAPARIN 40 MG/0.4 ML SYRINGE SUBCUT (08:40)
[2024-07-14 08:42] VITALS: BP 139/78; PULSE 76; RESP 14; TEMP 37.5; O2SAT 98
--- NOTE | 2024-07-14 10:58 | PT.IPTN ---
Current Diagnoses Unspecified intestinal obstruction, unspecified as to partial versus complete obstruction (07/04/24) Surgery Performed Operation Date: 07/07/24 09:00 <No data on this case meets the specified criteria> Operation Date: 07/08/24 16:45 Actual Procedures p Exploratory Laparotomy with lysis of adhesions - Aneudy Diggs MD Physical Therapy Treatment Note M2 PT-IP Current Condition Start: 07/10/24 14:01 Freq: NEEDED Status: Active Protocol: Document 07/10/24 14:02 KJ (Rec: 07/10/24 14:14 KJ [id number]) Physical Therapy Current Condition Current Condition Evaluation Date 07/10/24 Treatment Diagnosis General weakness Onset Date 07/04/24 M3 PT-IP Subjective Start: 07/10/24 14:01 Freq: NEEDED Status: Active Protocol: Document 07/14/24 10:27 MB (Rec: 07/14/24 10:56 MB [id number]) Subjective Physical Therapy Visit Type Type Treatment Note Visit Start Time 10:27 Visit Stop Time 10:50 Notes nearby Number of HAND II THERMAL CUTTER Visits 0 Physical Therapy Visit Comments Patient Comments Pt up walking with [employer] upon PT arrival, agreeable to do steps. M4 PT-IP Mobility and Gait Start: 07/10/24 14:01 Freq: NEEDED Status: Active Protocol: Document 07/14/24 10:27 MB (Rec: 07/14/24 10:56 MB [id number]) PT-Transfer Assessment Sit to and From Stand Sit to and from Stand Standby Assistance,1 Person Assistance,Use of Upper Extremities Equipment Transfer Assistive Device Gait Belt,Front Wheeled Walker Orthotic/Prosthetic Devices or Brace: No Transfers Transfer Destination Chair Gait Assessment Gait Gait Assistance Required: Standby Assistance,1 Person Assist Distance (Feet) 200 Able to Maintain Weight Bearing Status Yes During Gait Assistive Devices Assistive Device Gait Belt,Front Wheeled Walker Orthotic/Prosthetic Devices or Brace: No Gait Deviations General Gait Pattern Antalgic,Flexed Trunk Comments Gait Comments Pt is gait training well and PT or manages IV line and that is why he requires SBA for gait training Stair Climbing Assessment Evaluation Level of Assist On Stairs Standby Assistance Devices Stair Climbing Assistive Devices Left Railing,Right Railing Technique/Endurance Stair Climbing Direction Ascend and Descend Stair Climbing Technique Step to Step Number of Steps Climbed 3 Stair Climbing Set # Repetitions (reps) 2 PT-Balance Assessment Sitting Balance and Reactions Static Sitting Balance Ability Good Dynamic Sitting Balance Ability Good Standing Balance and Reactions Static Standing Balance Ability Good Dynamic Standing Balance Ability Good Device Used RW M5 PT-IP Objective Assessments Start: 07/10/24 14:01 Freq: NEEDED Status: Active Protocol: Document 07/10/24 14:02 KJ (Rec: 07/10/24 14:14 KJ [id number]) Orientation Orientation/Cognition Level of Alertness Alert Orientation Name,Age,Birthday,Month,Date, Year,Place,Situation Safety Awareness Understands Safety Issues Gross Range of Motion Upper Extremity ROM Assessment Within Functional Limits Lower Extremity ROM Assessment Within Functional Limits Impairments flex in hips/knees Strength Upper Extremity Strength Assessment Within Functional Limits Lower Extremity Strength Assessment Within Functional Limits Comments Strength Comments atrophy in calf mms Coordination Assessment Gross Coordination Gross Coordination WNL M6 PT-IP Treatment Start: 07/10/24 14:01 Freq: NEEDED Status: Active Protocol: Document 07/14/24 10:27 MB (Rec: 07/14/24 10:56 MB [id number]) Physical Therapy Treatment Education Education Provided Safety M7 PT-IP Assessment and Plan Start: 07/10/24 14:01 Freq: NEEDED Status: Active Protocol: Document 07/14/24 10:27 MB (Rec: 07/14/24 10:56 MB [id number]) PT Summary Assessment and Plan Potential Rehabilitation Potential Good Status of Condition at Evaluation Evolving Summary Impairments Pain,Strength,Balance,Bed Mobility,Transfers,Gait, Activity Tolerance Progress Towards Goals Goals Met Assessment Summary Pt has met acute care PT goals . He is gait training with RW, got RW for home, and he has demonstrated stair training. He currently requires SBA for gait d/t he uses RW and he has an IV pole. Also, due to potential changes in acute care setting, pt will require SBA for OOB and ambulating in hallways now that PT is discharging and defer to nsg about his appropriateness for this point forward. Frequency of Treatment Frequency Of Treatment Discharge Weight Bearing Status Weight Bearing Status Weight Bear as Tolerated Recommendations To Nursing Amount of Assist Needed Standby Assistance,1 Person Assist Discharge Recommendations PT Discharge Recommendations Home with Assistance
--- NOTE | 2024-07-14 11:12 | PM.PN.1 ---
Subjective Subjective Date Patient Seen: 07/14/24 Time Patient Seen: 08:15 Interval history: 83 M with small-bowel obstruction, s/p ex lap with ELIUD 07/08/2024, currently on a general diet and eating about 50% of his meal, otherwise doing well without complaints. He has been up walking in the hallway with nursing and physical therapy Exam Vital Signs (past 8 hours): - 07/14/24 05:14 07/14/24 08:42 07/14/24 09:30 Temperature 99.1 F 99.5 F Pulse Rate 76 76 Respiratory Rate 17 14 Blood Pressure 133/67 139/78 Pulse Oximetry 96 98 Oxygen Delivery Method Room Air Oxygen Flow Rate 0 0 Oxygen Delivery Method Room Air Oxygen Flow Rate 0 Narrative Exam Narrative: NAD, alert and oriented. Fluent speech. Lungs are clear, normal rate and effort. Heart is regular, no murmur gallop or rub. Abdomen is soft, bowel tones present, nontender, non distended. Incision intact, without erythema. Extremities are free of edema. Objective Labs 07/13/24 04:51 07/13/24 04:51 [facility] Medical History History of anemia Unspecified disturbances of skin sensation Surgical History H/O exploratory laparotomy History of spinal fusion Social History household members: spouse Smoking Status: Former smoker alcohol intake: former Assessment & Plan Assessment & Plan narrative: 1. SBO secondary to adhesions. Present on admission and active. Slowly improving. - s/p ex-lap with ELIUD 07/08/2024 with general surgery. - advance to general diet vegan diet per surgery recommendations on 07/13/2024, doing well - WBC back down to 11 yesterday. 2. CLAUDIA, present on admission and resolved. - likely due to dehydration. Cr 1.24 on admit from 0.7 at baseline. Now improved / resolved 3. Severe acute protein malnutrition, present on admission and active. - recent 7lb weight loss, BMI 18.2 at age 83, appears very thin and malnourished. - discontinue TPN at this point, weaning off over the next 24 hours. 4. BPH, present on admission and stable. - continue tamsulosin 5. HTN, present on admission and stable. - hold home irbesartan, propranolol, amlodipine for now, BP is starting to rise at this point though remains variable to low at times, likely resuming at discharge 6. Hypokalemia, hypophosphatemia, hyponatremia -resolved PLAN: -general vegan diet -wean off TPN -continue tylenol as needed -continue PT OT -BP is controlled still, although creeping up a bit. continue hold home antihypertensives. -likely discharge home tomorrow with home health PT/OT services Time-Based Coding :: [TOTAL MINUTES] spent with patient and on the chart (including review of chart, obtaining history, exam, reviewing outside data, placing orders, documenting exam and treatment plan, and counseling patient) on [DATE]. Quality VTE Deep Vein Thrombosis/Pulmonary Embolism Present on Admission: No PROFEE Charge codes Subsequent inpatient/observation care: 82470
[2024-07-14 13:00] VITALS: BP 126/72; PULSE 75; RESP 18; TEMP 36.8; O2SAT 99
--- NOTE | 2024-07-14 14:33 | PM.PNPO.1 ---
Subjective Subjective Date Patient Seen: 07/14/24 Time Patient Seen: 14:33 Exam Vital Signs (past 8 hours): - 07/14/24 08:42 07/14/24 09:30 07/14/24 13:00 Temperature 99.5 F 98.2 F Pulse Rate 76 75 Respiratory Rate 14 18 Blood Pressure 139/78 126/72 Pulse Oximetry 98 99 Oxygen Delivery Method Room Air Oxygen Flow Rate 0 0 Oxygen Delivery Method Room Air Oxygen Flow Rate 0 Narrative Exam Narrative: looks well, abdomen not distended. +flatus Objective Labs 07/13/24 04:51 07/13/24 04:51 [facility] Medical History History of anemia Unspecified disturbances of skin sensation Surgical History H/O exploratory laparotomy History of spinal fusion Social History household members: spouse Smoking Status: Former smoker alcohol intake: former Assessment & Plan Post-op Postoperative Procedures: Procedures Operation Date: 07/07/24 09:00 <No data on this case meets the specified criteria> Operation Date: 07/08/24 16:45 Actual Procedure Side Surgeon p Exploratory Laparotomy with lysis of adhesions Aneudy Diggs MD Postoperative status: doing well Postoperative status narrative: tolerating diet, just no formal BM yet. Postoperative plan narrative: Continue current treatment Time Spent With Patient Time with patient: less than 15 minutes Quality VTE Deep Vein Thrombosis/Pulmonary Embolism Present on Admission: No
[2024-07-14 16:00] VITALS: BP 105/55; PULSE 78; RESP 16; TEMP 36.8; O2SAT 99
[2024-07-14] MEDS: methocarbamoL 500 MG TABLET 750 MG PO ×2 (16:06→23:16)
[2024-07-14] MEDS: BISACODYL 10 MG SUPP PR (16:38)
[2024-07-14 20:00] VITALS: BP 125/78; PULSE 98; RESP 18; TEMP 36.4; O2SAT 100
[2024-07-14] MEDS: MELATONIN 3 MG TABLET 6 MG PO (21:02)
[2024-07-15] VITALS: BP 117/63; PULSE 69; TEMP 36.3; O2SAT 98
[2024-07-15] MEDS: SENNOSIDES 8.6 MG TABLET PO ×2 (01:18→09:04)
[2024-07-15] MEDS: OXYCODONE IR 5 MG TABLET PO ×3 (03:25→14:00)
[2024-07-15 04:00] VITALS: BP 124/62; PULSE 65; RESP 18; TEMP 36.5; O2SAT 98
[2024-07-15] MEDS: methocarbamoL 500 MG TABLET 750 MG PO (06:38)
--- NOTE | 2024-07-15 07:44 | P.DS_ITS ---
History of Present Illness History of Present Illness Chief complaint: GI issues Narrative: From H&P: This is an 83 year old male with PMH of low testosterone, HTN, HLD, BPH, chronic anemia who presented with abdominal pain, nausea, vomiting for the past 6 days. Patient states approx 6 days ago he starting feeling constipated, with bad abdominal pain keeping him up most of the night. He took laxitives and an enema, and was able to have a bowel movement but he had very decreased appetite moving forward. He is a bit fuzzy with pain medication currently, and it is difficult to tell if there was resolution of his symptoms after the bowel movement, but he did try a salmon burger which he did not seem to tolerate. He then tried crackers and then liquids with progressive symptoms and decided to come to the emergency room today. He has had nbnb emesis and nausea. Abdomen is not that distended but sore. reports 7 lb weight loss in the past week. In the ER, CT showed a high grade bowel obstruction. NG tube was attempted but coiled, then removed. Patient agreeable to re-attempt. He was started on IV fluid, admitted for small bowel obstruction. Discharge Providers Provider Date of admission: 07/04/24 12:38 Discharge Date: 07/15/24 Primary care physician: Monty Quinteros MD Consults: 07/04/24 12:29 Consult to General Surgery Stat Comment: Consulting Provider: Aneudy Diggs Reason for consultation: SBO Has provider been notified: Yes 07/08/24 08:53 Consult to Dietitian, Adult Routine Comment: Reason For Exam: parenteral nutrition 07/09/24 15:57 Consult to Physical Therapy Evaluate & Treat Comment: Physician Instructions: Evaluate and Treat 07/10/24 14:20 Consult to Occupational Therapy Evaluate & Treat Comment: Physician Instructions: Evaluate and treat 07/10/24 14:59 Consult to Dietitian, Adult Routine Comment: Reason For Exam: Vegetarian, assessed as high risk. Discharge provider: Tono Duggan MD Summary Hospital Course Discharge Diagnosis: 1. SBO secondary to adhesions. Present on admission and active. Slowly improving. - s/p ex-lap with ELIUD 07/08/2024 with general surgery. 2. CLAUDIA, present on admission and resolved. - likely due to dehydration. Cr 1.24 on admit from 0.7 at baseline. 3. Severe acute protein malnutrition, present on admission and active. - recent 7lb weight loss, BMI 18.2 at age 83, appears very thin and malnourished. 4. BPH, present on admission and stable. - continue tamsulosin 5. HTN, present on admission and stable. - hold home irbesartan, propranolol, amlodipine for now, BP is starting to rise at this point though remains variable to low at times, likely resuming at discharge 6. Hypokalemia, hypophosphatemia, hyponatremia -resolved Hospital Course: He was admitted with a bowel obstruction in context of previous bowel obstructions and adhesions. The patient was reluctant to undergo operative repair but failed therapy with nasogastric tube suctioning. Ultimately he underwent operative repair on July 08. The patient's postoperative course was slow. He was supported with TPN and had very slow advance of his diet inability to increase his oral intake. Ultimately he was felt to be stable for discharge with adequate oral take intake on July 15. Status at Discharge Cognitive/behavioral status at discharge: at baseline, oriented Functional status at discharge: independent ambulation Overall status at discharge: patient is progressing back to baseline Time Spent with Patient Time spent: Greater than 30 minutes Exam Vital Signs (past 8 hours): - 07/15/24 00:00 07/15/24 04:00 Temperature 97.4 F L 97.7 F Pulse Rate 69 65 Respiratory Rate 18 Blood Pressure 117/63 124/62 Pulse Oximetry 98 98 Oxygen Flow Rate 0 0 Oxygen Delivery Method Room Air Oxygen Flow Rate 0 Narrative Exam Narrative: NAD Lungs clear Heart regular with no MGR Abdomen soft and NT No leg edema Objective ECG Impression: Sinus rhythm with premature atrial complexes Possible Anterior infarct , age undetermined Imaging Multiple studies: : Radiologist's impression: Chest x-ray July 09: 1. Right-sided PICC with the catheter tip terminating at the middle 3rd of the SVC. No pneumothorax. 2. Suspect pneumoperitoneum. -Recommend CT abdomen pelvis with IV contrast for further evaluation. Abdomen and pelvis CT July 07: Persistent small-bowel obstruction. Proximal small bowel is massively dilated. Nevertheless, there is oral contrast in the right colon, new from the prior. Nasogastric tube in descended stomach Abdomen x-ray July 06: Continued high-grade proximal small bowel obstruction. NG tube tip is slightly improved, but still points towards the GE junction. Gastrografin study July 05: Persistent distension of proximal small bowel and stomach consistent with small- bowel obstruction. Chest x-ray on July 04: 1. Enteric decompression tube tip projects over the upper mediastinum. 2. Subtle left basilar patchy consolidation favored to represent atelectasis, less likely aspiration. 3. Dilated loops of small bowel in the upper abdomen compatible with known obstruction, as seen on same day CT. Abdomen and pelvis CT on July 04: High-grade proximal small bowel obstruction with a transition point and marked dilatation of proximal small bowel to up to 6.3 cm. 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 Labs 07/13/24 04:51 07/13/24 04:51 [facility] Medical History History of anemia Unspecified disturbances of skin sensation Surgical History H/O exploratory laparotomy History of spinal fusion Social History household members: spouse Smoking Status: Former smoker alcohol intake: former Discharge Assessment & Plan Assessment and Plan Assessment: 1. SBO secondary to adhesions. Present on admission and active. Slowly improving. - s/p ex-lap with ELIUD 07/08/2024 with general surgery. 2. CLAUDIA, present on admission and resolved. - likely due to dehydration. Cr 1.24 on admit from 0.7 at baseline. 3. Severe acute protein malnutrition, present on admission and active. - recent 7lb weight loss, BMI 18.2 at age 83, appears very thin and malnourished. Plan of Treatment: Discharge home to [facility] with . Home health therapy as also been organized. Close follow up with primary care in outpatient follow up with surgery as scheduled. Discharge Plan Discharge Plan Patient Disposition: Home Provider Discharge Comment: Stable for discharge home with . Discharge orders & Medications Prescriptions: New oxycodone 5 mg Tablet 5 mg PO Q4HR PRN (Reason: Pain, Moderate (4-6)) Qty: 20 0RF Continued tamsulosin [Flomax] 0.4 mg capsule 0.8 mg PO BEDTIME Qty: 180 3RF ciclopirox 1 % shampoo 10 ml topical 2XW Qty: 120 3RF testosterone 10 mg/0.5 gram /actuation gel in metered-dose pump 2 pump transdermal QAM Qty: 60 0RF Rx Instructions: apply evenly over front and inner area of EACH thigh; avoid water for >=2 hrs simvastatin 20 mg tablet 20 mg PO DAILY Qty: 90 3RF finasteride 5 mg tablet See Rx Instructions .ROUTE .COMPLEX Qty: 90 3RF Dose Instruction: TAKE ONE TABLET BY MOUTH EVERY DAY Rx Instructions: TAKE ONE TABLET BY MOUTH EVERY DAY ondansetron 8 mg tablet,disintegrating 8 mg PO Q8H PRN (Reason: nausea and vomiting) Qty: 20 0RF sildenafil 100 mg tablet 100 mg PO DAILY PRN (Reason: sexual activity) Qty: 10 4RF Rx Instructions: administer 30 minutes to 4 hours before activity diclofenac epolamine [Flector] 1.3 % patch 12 hour 1 patch topical ONCE Qty: 30 3RF naloxone 4 mg/actuation spray,non-aerosol 4 mg intranasal Q2M Qty: 2 1RF Rx Instructions: spray 1 dose into ONE nostril; alternate nostrils w each dose until help arrives methscopolamine 5 mg tablet 5 mg PO BEDTIME Qty: 90 3RF omeprazole 20 mg capsule,delayed release(DR/EC) 20 mg PO DAILY Qty: 30 2RF Patient Comments: pt takes for heights Discontinued irbesartan 300 mg tablet 300 mg PO DAILY Qty: 90 3RF hydrocodone-acetaminophen 10-325 mg tablet 1 tab PO Q8H PRN (Reason: pain) Qty: 28 0RF Rx Instructions: must last 28 days. Release date 06/21/24 celecoxib [Celebrex] 200 mg capsule 200 mg PO DAILY Rx Instructions: TAKE ONE CAPSULE BY MOUTH EVERY DAY FOR ARTHRITIS PAIN -- MAY TAKE ONE CAPSULE TWO TIMES A DAY DURING FLARE metformin 1,000 mg tablet extended release 24 hr 1,000 mg PO DAILY Patient Comments: patient takes for longevcity- he is not diabetic propranolol 10 mg tablet 10 mg PO .qday Qty: 60 0RF amlodipine 5 mg tablet 5 mg PO DAILY Qty: 90 3RF Medication counseling provided by Pharmacist: No Follow up/Referrals: Monty Quinteros MD [Primary Care Provider] - Diet/Activity/Treatments Diet: Regular Visit Report/Discharge Packet Instructions: DI for Small Bowel Obstruction Stand Alone Forms: Patient Portal/API, Surgery Discharge Discharge Data Primary Care Provider: Monty Quinteros VTE Deep Vein Thrombosis/Pulmonary Embolism Present on Admission: No MIPS - DC The patient has a history of heart transplant or Left Ventricular Assist Device (LVAD). If yes, STOP here.: No The patient has current or prior documentation of left ventricular ejection fraction (LVEF) less than or equal to 40%, or moderate or severely depressed left ventricular systolic function.: No
[2024-07-15 08:00] VITALS: BP 137/70; PULSE 68; RESP 16; TEMP 36.6; O2SAT 99
[2024-07-15] MEDS: ENOXAPARIN 40 MG/0.4 ML SYRINGE SUBCUT (09:04)
[2024-07-15] MEDS: TAMSULOSIN 0.4 MG CAPSULE PO (09:04)
[2024-07-15] MEDS: FINASTERIDE 5 MG TABLET PO (09:04)
[2024-07-15] MEDS: polyethylene glycoL 3350 17 GM POWD.PACK PO (10:28)
--- NOTE | 2024-07-15 10:58 | CM.DPNOTE ---
DCP Note ACETYLENE CUTTER reviewed EMR. Per hospitalist in morning rounds, cleared to dc home today. Per PT, pt ambulating too well to qualify for HH at this point. ACETYLENE CUTTER met with pt, spouse, and RN in room. ACETYLENE CUTTER and RN answered questions/concerns to best of ability. Pt and spouse in agreement to dc today. Report understanding that pt is mobilizing too well for HH. Deny need for medical priority boarding pass. In agreement to dc home today. Report having a walker/shower chair for home use. ACETYLENE CUTTER emailed Marie at [facility] to cancel referral. P: dc home today with spouse support/to transport back to [place]. No further CM needs identified at this time. CM team will follow as needed ALONSO Pope
--- NOTE | 2024-07-26 14:21 | PT.IIE ---
Current Diagnoses Unspecified severe protein-calorie malnutrition (07/04/24) Hyperlipidemia, unspecified (07/04/24) Other disorders of phosphorus metabolism (07/04/24) Dehydration (07/04/24) Hypo-osmolality and hyponatremia (07/04/24) Hypokalemia (07/04/24) Essential (primary) hypertension (07/04/24) Gastro-esophageal reflux disease without esophagitis (07/04/24) Intestinal adhesions [bands], unspecified as to partial versus complete obstruction (07/04/24) Ileus, unspecified (07/04/24) Other postprocedural complications and disorders of digestive system (07/04/24) Acute kidney failure, unspecified (07/04/24) Benign prostatic hyperplasia without lower urinary tract symptoms (07/04/24) Body mass index [BMI] 19.9 or less, adult (07/04/24) Personal history of nicotine dependence (07/04/24) Surgery Performed Operation Date: 07/07/24 09:00 <No data on this case meets the specified criteria> Operation Date: 07/08/24 16:45 Actual Procedures p Exploratory Laparotomy with lysis of adhesions - Aneudy Diggs MD Surgical History (Last Reviewed 07/15/24 @ 07:50 by Tono Duggan MD) H/O exploratory laparotomy History of spinal fusion Medical History (Last Reviewed 07/15/24 @ 07:50 by Tono Duggan MD) History of anemia Unspecified disturbances of skin sensation Physical Therapy Inpatient Evaluation/Re-Eval M1 PT/OT-IP Prior Functional Status Start: 07/10/24 14:01 Freq: NEEDED Status: Discharge Protocol: Document 07/10/24 14:02 KJ (Rec: 07/10/24 14:14 KJ [id number]) Medical Review Prior Functional Status Medical History Reviewed Yes Mobility and Gait Indep mobility w/out AD. Activities of Daily Living and IADL's Indep ADLs. Prior Functional Level (Other details) Worked out in home gym. Social History Household Members spouse Living Arrangements Apartment/Condo Number of Floors (Floors) Two Floors Number of Stairs To Enter/Railing? 3 Employment Status Retired Additional Social History Comment Lives with who is very active, is a runner. M1 PT/OT-IP Prior Functional Status Start: 07/10/24 15:42 Freq: NEEDED Status: Discharge Protocol: Document 07/10/24 15:43 RAJAN (Rec: 07/10/24 16:05 RAJAN [id number]) Medical Review Prior Functional Status Medical History Reviewed Yes Communication pt able to communicate needs Mobility and Gait Indep mobility w/out AD. Activities of Daily Living and IADL's Indep ADLs. Prior Functional Level (Other details) Worked out in home gym. Pt would regularly hike and walk his 20# dog. Social History Household Members spouse Living Arrangements Apartment/Condo Number of Floors (Floors) Two Floors Number of Stairs To Enter/Railing? 3 with railing on R when entering. Pts needs can all be met on main level of home Home Environment Standard Height Toilet,Walk in Shower Home Equipment Hand Held Shower Employment Status Retired Additional Social History Comment Lives with . Pt is currently working on naz program to have EV units placed on [facility]. M2 PT-IP Current Condition Start: 07/10/24 14:01 Freq: NEEDED Status: Discharge Protocol: Document 07/10/24 14:02 KJ (Rec: 07/10/24 14:14 KJ [id number]) Physical Therapy Current Condition Current Condition Evaluation Date 07/10/24 Treatment Diagnosis General weakness Onset Date 07/04/24 M3 PT-IP Subjective Start: 07/10/24 14:01 Freq: NEEDED Status: Discharge Protocol: Document 07/14/24 10:27 MB (Rec: 07/14/24 10:56 MB [id number]) Subjective Physical Therapy Visit Type Type Treatment Note Visit Start Time 10:27 Visit Stop Time 10:50 Notes nearby Number of FIELD CANE SCALER HELPER Visits 0 Physical Therapy Visit Comments Patient Comments Pt up walking with INDUSTRIAL PSYCHOLOGIST upon PT arrival, agreeable to do steps. M4 PT-IP Mobility and Gait Start: 07/10/24 14:01 Freq: NEEDED Status: Discharge Protocol: Document 07/14/24 10:27 MB (Rec: 07/14/24 10:56 MB [id number]) PT-Transfer Assessment Sit to and From Stand Sit to and from Stand Standby Assistance,1 Person Assistance,Use of Upper Extremities Equipment Transfer Assistive Device Gait Belt,Front Wheeled Walker Orthotic/Prosthetic Devices or Brace: No Transfers Transfer Destination Chair Gait Assessment Gait Gait Assistance Required: Standby Assistance,1 Person Assist Distance (Feet) 200 Able to Maintain Weight Bearing Status Yes During Gait Assistive Devices Assistive Device Gait Belt,Front Wheeled Walker Orthotic/Prosthetic Devices or Brace: No Gait Deviations General Gait Pattern Antalgic,Flexed Trunk Comments Gait Comments Pt is gait training well and PT or manages IV line and that is why he requires SBA for gait training Stair Climbing Assessment Evaluation Level of Assist On Stairs Standby Assistance Devices Stair Climbing Assistive Devices Left Railing,Right Railing Technique/Endurance Stair Climbing Direction Ascend and Descend Stair Climbing Technique Step to Step Number of Steps Climbed 3 Query Text: Stair Climbing Set # Repetitions (reps) 2 PT-Balance Assessment Sitting Balance and Reactions Static Sitting Balance Ability Good Dynamic Sitting Balance Ability Good Standing Balance and Reactions Static Standing Balance Ability Good Dynamic Standing Balance Ability Good Device Used RW M5 PT-IP Objective Assessments Start: 07/10/24 14:01 Freq: NEEDED Status: Discharge Protocol: Document 07/10/24 14:02 KJ (Rec: 07/10/24 14:14 KJ [id number]) Orientation Orientation/Cognition Level of Alertness Alert Orientation Name,Age,Birthday,Month,Date, Year,Place,Situation Safety Awareness Understands Safety Issues Gross Range of Motion Upper Extremity ROM Assessment Within Functional Limits Lower Extremity ROM Assessment Within Functional Limits Impairments flex in hips/knees Strength Upper Extremity Strength Assessment Within Functional Limits Lower Extremity Strength Assessment Within Functional Limits Comments Strength Comments atrophy in calf mms Coordination Assessment Gross Coordination Gross Coordination WNL M6 PT-IP Treatment Start: 07/10/24 14:01 Freq: NEEDED Status: Discharge Protocol: Document 07/14/24 10:27 MB (Rec: 07/14/24 10:56 MB [id number]) Physical Therapy Treatment Education Education Provided Safety M7 PT-IP Assessment and Plan Start: 07/10/24 14:01 Freq: NEEDED Status: Discharge Protocol: Document 07/14/24 10:27 MB (Rec: 07/14/24 10:56 MB [id number]) PT Summary Assessment and Plan Potential Rehabilitation Potential Good Status of Condition at Evaluation Evolving Summary Impairments Pain,Strength,Balance,Bed Mobility,Transfers,Gait, Activity Tolerance Progress Towards Goals Goals Met Assessment Summary Pt has met acute care PT goals . He is gait training with RW, got RW for home, and he has demonstrated stair training. He currently requires SBA for gait d/t he uses RW and he has an IV pole. Also, due to potential changes in acute care setting, pt will require SBA for OOB and ambulating in hallways now that PT is discharging and defer to nsg about his appropriateness for this point forward. Frequency of Treatment Frequency Of Treatment Discharge Weight Bearing Status Weight Bearing Status Weight Bear as Tolerated Recommendations To Nursing Amount of Assist Needed Standby Assistance,1 Person Assist Discharge Recommendations PT Discharge Recommendations Home with Assistance
== END 2024-07-15 14:25 | disposition home or self-care (01) | DRG 335 ==
LOC: ED 12:29 → AC 12:39
PROVIDERS: Internal Medicine; Surgery; Admitting Provider Internal Medicine; Emergency Provider Emergency Medicine; PCP Family Medicine; Referring Provider Emergency Medicine; Visit Provider Internal Medicine
PROC: 0DN80ZZ Release Small Intestine, Open Approach (ICD-10-PCS; CPT 49000; principal; 2024-07-08 16:45)
DX: K56.50 Intestinal adhesions [bands], unspecified as to partial versus complete obstruction (principal); E43 Unspecified severe protein-calorie malnutrition; N17.9 Acute kidney failure, unspecified; Z68.1 Body mass index [BMI] 19.9 or less, adult; K91.89 Other postprocedural complications and disorders of digestive system; E87.1 Hypo-osmolality and hyponatremia; E86.0 Dehydration; N40.0 Benign prostatic hyperplasia without lower urinary tract symptoms; I10 Essential (primary) hypertension; E87.6 Hypokalemia; E83.39 Other disorders of phosphorus metabolism; K56.7 Ileus, unspecified; E78.5 Hyperlipidemia, unspecified; K21.9 Gastro-esophageal reflux disease without esophagitis; Z87.891 Personal history of nicotine dependence
CPT/HCPCS: 36415; 36569; 36592; 71045; 74018; 74177; 80053; 81003; 81015; 82550; 82962; 83690; 83735; 84100; 84478; 84484; 85025; 93005; 93010; 96361; 96374; 96375; 97110; 97116; 97161; 97165; 97530; 99284; 99285; B4185; B4189; C9290; J0136; J0330; J1100; J1170; J1642; J1650; J2060; J2405; J2470; J2543; J2704; J3010; Q9967

== ENCOUNTER → 2024-08-15 12:58 | Outpatient (CLI) | payer MEDICARE, OTHER, SELFPAY ==
[2024-07-04 14:52] VITALS: BMI 18.2
[2024-08-15 19:46] LABS: Reticulocyte Count, Percent 1.3 % (0.9-2.6)
[2024-08-15 19:47] LABS: Add Manual Diff / Slide Review NO; Basophils Absolute Auto 100 /uL (0-100); Basophils Percent Auto 1.1 % (0-2); Eosinophils Absolute Auto 300 /uL (0-450); Eosinophils Percent Auto 3.1 % (2-4); Hemoglobin 10.8 g/dL (13.5-17.5); Lymphocytes Absolute Auto 2200 /uL (1100-4500); Lymphocytes Percent Auto 24.1 % (25-40); Mean Corpuscular HGB Conc 32.6 % (30-36); Mean Corpuscular Hemoglobin 31.7 PG (26-34); Mean Corpuscular Volume 97.2 fL (80-100); Monocytes Absolute Auto 700 /uL (0-900); Monocytes Percent Auto 7.9 % (3-14); Neutrophils Absolute Auto 5900 /uL (1500-7000); Neutrophils Percent Auto 63.8 % (50-75); Platelet Count 289 X10^3/uL (150-400); Red Cell Distribution Width 16.8 % (11.6-14.8); White Blood Cell Count 9.2 X10^3/uL (4.5-11.0)
[2024-08-15 19:52] LABS: HEMOLYSIS < 15 (0-50); Iron 59 ug/dL (49-181)
[2024-08-15 19:59] LABS: Alanine Aminotransferase 18 IU/L (<50); Albumin 3.5 g/dL (3.5-5.0); Albumin Globulin Ratio 1.1 (1.0-2.8); Alkaline Phosphatase 132 U/L (38-126); Aspartate Aminotransferase 30 IU/L (17-59); BUN Creatinine Ratio 33.3 (6-22); Bilirubin Total 0.5 mg/dL (0.2-1.3); Blood Urea Nitrogen 27 mg/dL (9-20); Calcium 9.8 mg/dL (8.4-10.2); Carbon Dioxide 27 mmol/L (22-32); Chloride 103 mmol/L (98-107); Cholesterol 215 mg/dL (140-199); Estimated Glomerular Filt Rate > 60 mL/min (>60); Globulin 3.2 g/dL (1.7-4.1); Glucose 100 mg/dL (80-110); HDL Cholesterol 103 mg/dL (40-60); HEMOLYSIS < 15 (0-50); LDL Cholesterol Calculated 95 mg/dL (<100); Magnesium 1.9 mg/dL (1.6-2.3); Potassium 4.5 mmol/L (3.4-5.1); Sodium 134 mmol/L (137-145); Total Protein 6.7 g/dL (6.3-8.2); Triglycerides 87 mg/dL (35-150)
[2024-08-15 20:08] LABS: Percent Iron Saturation 15 % (20-50); Total Iron Binding Capacity 391 ug/dL (261-462); Transferrin 321 mg/dL (206-381)
[2024-08-15 20:29] LABS: TSH w/ Reflex to FT4 1.26 uIU/mL (0.47-4.68)
[2024-08-15 21:05] LABS: Folate > 20.0 ng/mL (2.76-20.0); Vitamin B12 > 1000 pg/mL (239-931)
[2024-08-22 12:11] LABS: Percent Free Testosterone 1.12 % (1.50-4.20); Testosterone Free 4.15 ng/dL (5.00-21.00); Testosterone Total 370.5 ng/dL (264.0-916.0)
== END ==
PROVIDERS: PCP Family Medicine; Visit Provider Family Medicine
DX: R63.4 Abnormal weight loss (principal); K56.609 Unspecified intestinal obstruction, unspecified as to partial versus complete obstruction; E78.2 Mixed hyperlipidemia; Z79.890 Hormone replacement therapy; D64.9 Anemia, unspecified; I10 Essential (primary) hypertension; E83.42 Hypomagnesemia
CPT/HCPCS: 80053; 80061; 82607; 82746; 83540; 83550; 83735; 84402; 84403; 84443; 85025; 85045

== ENCOUNTER → 2024-11-29 11:18 | Outpatient (CLI) | payer MEDICARE, OTHER, SELFPAY ==
[2024-07-04 14:52] VITALS: BMI 18.2
--- NOTE | 2024-11-29 11:19 | DI.MRI.S_ITS ---
PROCEDURE: MR CERVICAL SPINE WO CON INDICATIONS: cervical radiculopathy TECHNIQUE: Noncontrast sagittal T1 spin echo and T2 fast spin echo, sagittal STIR, foraminal oblique sagittal T2 fast spin echo, and axial gradient echo or T2 fast spin echo through the cervical spine. COMPARISON: None. FINDINGS: Image quality: Excellent. Alignment and Curvature: Anterior fusion is present at C5-6 with exaggerated kyphosis at this level.. There is trace anterolisthesis of C3 on C4, C7 on T1, T1 on T2. trace retrolisthesis of C4 on C5. Bone Marrow: Marrow demonstrates normal overall signal. Mild reactive endplate changes are present at C4-5, C6-7. Spinal Cord: Visualized spinal cord has normal size and signal. No cerebellar tonsillar herniation. Paraspinous Soft Tissues: No paravertebral masses. Prevertebral soft tissues are normal in thickness. Discs: Multilevel moderate to severe disc desiccation. C2-C3: No disc bulge, spinal stenosis or foraminal narrowing. C3-C4: Mild disc bulge without spinal stenosis. Moderate bilateral foraminal narrowing with uncovertebral hypertrophy. C4-C5: Mild disc bulge with effacement of the anterior thecal sac. Moderate bilateral foraminal narrowing, left greater than right with uncovertebral hypertrophy. C5-C6: Postsurgical change. No spinal stenosis. Moderate to severe right and moderate left foraminal narrowing with uncovertebral hypertrophy. C6-C7: Mild disc bulge without spinal stenosis. Severe bilateral foraminal narrowing with uncovertebral hypertrophy. C7-T1: No disc bulge, spinal stenosis or foraminal narrowing. IMPRESSION: Multilevel disc bulges. Multilevel moderate to severe foraminal narrowing most significant at C5-6. Dictated by: Monica Burgos M.D. on 11/29/2024 at 16:00 Approved by: Monica Burgos M.D. on 11/29/2024 at 16:31
== END ==
LOC: MRI 11:19
PROVIDERS: PCP Family Medicine; Referring Provider Family Medicine; Visit Provider Family Medicine
DX: M50.11 Cervical disc disorder with radiculopathy, high cervical region (principal); M48.02 Spinal stenosis, cervical region; Z98.1 Arthrodesis status
CPT/HCPCS: 72141

== ENCOUNTER → 2024-12-10 10:20 | Outpatient (CLI) | payer MEDICARE, OTHER, SELFPAY ==
[2024-07-04 14:52] VITALS: BMI 18.2
[2024-12-10 19:44] LABS: Alanine Aminotransferase 22 IU/L (<50); Albumin Globulin Ratio 1.5 (1.0-2.8); Alkaline Phosphatase 99 U/L (38-126); Aspartate Aminotransferase 33 IU/L (17-59); BUN Creatinine Ratio 28.7 (6-22); Bilirubin Total 0.5 mg/dL (0.2-1.3); Blood Urea Nitrogen 31 mg/dL (9-20); Calcium 10.3 mg/dL (8.4-10.2); Carbon Dioxide 28 mmol/L (22-32); Chloride 102 mmol/L (98-107); Estimated Glomerular Filt Rate > 60 mL/min (>60); Globulin 2.7 g/dL (1.7-4.1); Glucose 91 mg/dL (80-110); HEMOLYSIS < 15 (0-50); Potassium 4.3 mmol/L (3.4-5.1); Sodium 134 mmol/L (137-145); Total Protein 6.7 g/dL (6.3-8.2)
== END ==
PROVIDERS: PCP Family Medicine; Visit Provider Physician Assistant Medical
DX: Z71.84 Encounter for health counseling related to travel (principal)
CPT/HCPCS: 80053

== ENCOUNTER → 2025-01-28 11:40 | Outpatient (CLI) | payer MEDICARE, OTHER, SELFPAY ==
[2024-07-04 14:52] VITALS: BMI 18.2
[2025-01-28 19:57] LABS: Blood Urea Nitrogen 24 mg/dL (9-20); Calcium 11.1 mg/dL (8.4-10.2); Carbon Dioxide 27 mmol/L (22-32); Chloride 101 mmol/L (98-107); Estimated Glomerular Filt Rate > 60 mL/min (>60); Glucose 129 mg/dL (80-110); HEMOLYSIS < 15 (0-50); Sodium 136 mmol/L (137-145)
== END ==
PROVIDERS: PCP Family Medicine; Visit Provider Family Medicine
DX: E83.52 Hypercalcemia (principal); Z79.890 Hormone replacement therapy
CPT/HCPCS: 80048; 82397; 84155; 84165; 84402; 84403

== ENCOUNTER 2025-02-04 09:17 | Outpatient (CLI) | payer MEDICARE, OTHER, SELFPAY ==
[2024-07-04 14:52] VITALS: BMI 18.2
[2025-02-04] VITALS (8 sets, daily range): BP systolic 142–179; BP diastolic 69–86; PULSE 55–66; RESP 13–17; TEMP 36.7; O2SAT 98–100
[2025-02-04] MEDS: MIDAZOLAM 2 MG/2 ML VIAL IV (10:37)
[2025-02-04] MEDS: DEXAMETHASONE 10 MG/ML VIAL 20 MG INJ (10:41)
[2025-02-04] MEDS: BUPIVACAINE 0.25% (PF) VIAL 2 ML INJ (10:42)
[2025-02-04] MEDS: iopamidoL 15 ML VIAL 3 ML INJ (10:42)
--- NOTE | 2025-02-04 11:01 | P.PCN_ITS ---
Date/Time/Diagnoses Date of procedure: 02/04/25 Time of procedure: 11:01 Pre-procedure diagnosis: 1. CERVICAL STENOSIS, 2. CERVICAL HNP WITH UPPER EXTREMITY RADICULAR FEATURES Post-procedure diagnosis: same Procedure Notes Procedure: 1. FLUORSCOPICALLY GUIDED CONTRAST CONTROLLED INTERLAMINAR EPIDURAL STEROID INJECTION - C6/7 TL VERÓNICA Indications: Darwin is referred by Dr. Quinteros for treatment of Cervical HNP with Upper Extremity Paresthesias. Physician: Monty Larson Total Fluoroscopy time (seconds): 39 Total sedation minutes: 19 Complications: none Procedure in detail & Post-procedure care: FINDINGS Cervical Stenosis due to disc deterioration and nerve root irritation and nerve root irritation DESCRIPTION OF PROCEDURE Fluoroscopically guided, contrast-controlled C6/7 translaminar epidural steroid injection with conscious sedation. Following review of allergy and review of potential side effects and complications, including, but not necessarily limited to, infection, allergic reaction, local tissue breakdown, temporary as well as permanent nerve injury, stroke, paralysis, and possible , the patient indicated that patient understood and agreed to proceed. An informed consent document was signed by the patient, witnessed by a nurse, and placed in the patient's chart. Additionally, other treatment options including modalities, medications, and physical therapy were reviewed with the patient. After review of previous anaesthesic history and IV conscious sedation the patient was deemed safe to proceed with today?s procedure with IV conscious sedation as ASA class II designation. Safety time-out was performed to confirm patient ID, procedure to be performed and site of procedure. IV sedation was accomplished with a combination of 2mg of Versed administered by the RN after DO order, titrated to patient comfort during the course of the procedure while the patient remained responsive to all verbal commands. In the prone position, following sterile prep and drape of the cervical region, the C6/7 translaminar space was identified fluoroscopically. The skin was anesthetized via a 25-gauge 1.5-inch needle with 1% lidocaine solution. At this point, a 25-gauge, 2.5-inch short bevel spinal needle was atraumatically introduced and advanced under fluoroscopic guidance into epidural space at the C6/7 translaminar space. Depth was confirmed on lateral view. Radiological data, including multiple fluoroscopic views of the cervical spine, reveal a spinal needle at the C6/7 translaminar space. Lateral views then show placement of the needle in the epidural space. Subsequent views show contrast material flowing superiorly and inferiorly in the epidural space. DSA fluoroscopy with live contrast injection, once again, confirmed no vascular or intrathecal uptake. At this point, using loss of resistance technique with saline and air, the epidural space was entered. Following negative aspiration, injection of approximately 1.5 cc of Isovue-200 with live fluoroscopy in the AP view confirmed epidural flow in the epidural space without vascular or intrathecal uptake observed. Subsequently, a test dose of 1 cc of 1% lidocaine solution was injected and patient was observed for two minutes without signs or symptoms of complications, including abdominal pain, shortness of breath, bilateral upper or lower extremity weakness, nausea and vomiting, prior to steroid injection. At this point, 2cc or 20mg of dexamethasone was then injected without incident. The patient tolerated the procedure well without signs or symptoms of compli cations prior to being transferred to the recovery area for further monitoring, The patient was then transferred to the recovery area where they were observed for an appropriate period of time after the injection. The patient reported a VAS score of 6 prior to the procedure and a post-procedure VAS of 0. POST OP INSTRUCTIONS The patient was provided a Pain Log to continue to record their response to the target-specific procedure prior to follow-up visit with the referring provider. Additionally, specific post-injection care instructions and a contact number to our office were provided if concerns arise regarding possible complications associated with the procedure are suspected.
== END 2025-02-04 11:13 | disposition home or self-care (01) ==
PROVIDERS: PCP Family Medicine; Referring Provider Physical Medicine & Rehabilitation; Visit Provider Physical Medicine & Rehabilitation
DX: M48.02 Spinal stenosis, cervical region (principal); M50.123 Cervical disc disorder at C6-C7 level with radiculopathy
CPT/HCPCS: 62321; 99152; J1100; J2250; J3490

== ENCOUNTER → 2025-03-13 10:10 | Outpatient (CLI) | payer MEDICARE, OTHER, SELFPAY ==
[2024-07-04 14:52] VITALS: BMI 18.2
[2025-03-13 19:57] LABS: Add Manual Diff / Slide Review NO; Basophils Absolute Auto 100 /uL (0-100); Basophils Percent Auto 1.3 % (0-2); Eosinophils Absolute Auto 400 /uL (0-450); Eosinophils Percent Auto 4.3 % (2-4); Hematocrit 36.2 % (41-53); Lymphocytes Absolute Auto 2400 /uL (1100-4500); Lymphocytes Percent Auto 23.5 % (25-40); Mean Corpuscular HGB Conc 33.1 % (30-36); Mean Corpuscular Volume 96.6 fL (80-100); Monocytes Absolute Auto 800 /uL (0-900); Monocytes Percent Auto 7.9 % (3-14); Neutrophils Absolute Auto 6500 /uL (1500-7000); Platelet Count 199 X10^3/uL (150-400); Red Blood Cell Count 3.75 X10^6/uL (4.5-5.9); Red Cell Distribution Width 15.3 % (11.6-14.8); White Blood Cell Count 10.3 X10^3/uL (4.5-11.0)
[2025-03-13 20:05] LABS: HEMOLYSIS < 15 (0-50); Iron 70 ug/dL (49-181)
[2025-03-13 20:09] LABS: Alanine Aminotransferase 18 IU/L (<50); Albumin 3.9 g/dL (3.5-5.0); Albumin Globulin Ratio 1.6 (1.0-2.8); Alkaline Phosphatase 102 U/L (38-126); Aspartate Aminotransferase 27 IU/L (17-59); BUN Creatinine Ratio 23.2 (6-22); Bilirubin Total 0.4 mg/dL (0.2-1.3); Blood Urea Nitrogen 22 mg/dL (9-20); Carbon Dioxide 29 mmol/L (22-32); Chloride 103 mmol/L (98-107); Cholesterol 211 mg/dL (140-199); Estimated Glomerular Filt Rate > 60 mL/min (>60); Globulin 2.4 g/dL (1.7-4.1); Glucose 108 mg/dL (70-99); HDL Cholesterol 108 mg/dL (40-60); HEMOLYSIS < 15 (0-50); LDL Cholesterol Calculated 94 mg/dL (<100); Magnesium 2.1 mg/dL (1.6-2.3); Potassium 5.1 mmol/L (3.4-5.1); Sodium 137 mmol/L (137-145); Total Protein 6.3 g/dL (6.3-8.2); Triglycerides 44 mg/dL (35-150)
[2025-03-13 20:18] LABS: Percent Iron Saturation 18 % (20-50); Total Iron Binding Capacity 393 ug/dL (261-462); Transferrin 337 mg/dL (206-381)
[2025-03-13 21:01] LABS: Vitamin B12 > 1000 pg/mL (239-931)
[2025-03-15 09:09] LABS: Calcium 10.1 mg/dL (8.6-10.2); Parathyroid Hormone, Intact 36 pg/mL (15-65)
== END ==
PROVIDERS: Family Provider Family Medicine; PCP Family Medicine; Visit Provider Family Medicine
DX: I10 Essential (primary) hypertension (principal); D64.9 Anemia, unspecified; N40.1 Benign prostatic hyperplasia with lower urinary tract symptoms; N13.8 Other obstructive and reflux uropathy; E83.52 Hypercalcemia; E78.2 Mixed hyperlipidemia; Z79.890 Hormone replacement therapy
CPT/HCPCS: 80053; 80061; 82310; 82607; 83540; 83550; 83735; 83970; 84402; 84403; 85025

== ENCOUNTER → 2025-03-20 12:04 | Outpatient (CLI) | payer MEDICARE, OTHER, SELFPAY ==
[2024-07-04 14:52] VITALS: BMI 18.2
--- NOTE | 2025-03-20 12:07 | DI.MRI.S_ITS ---
PROCEDURE: MR LUMBAR SPINE WO CON INDICATIONS: Radiating low back pain and left leg weakness TECHNIQUE: Noncontrast sagittal T1 spin echo and T2 fast echo, sagittal STIR, and T2 fast spin echo through the lumbar spine. In cases with scoliosis, additional coronal T2 fast spin echo may be performed. COMPARISON: [facility], CT, CT ABDOMEN PELVIS W CON, 07/07/2024, 11:12. None. FINDINGS: Image quality: Diagnostic, with note made of motion artifact. Alignment and Curvature: Minimal anterolisthesis is seen at L3-L4. There is mild grade 1 anterolisthesis at L5-S1. Bilateral pars defects are present. Mild levoconvex scoliotic curvature is noted. Bone Marrow: Marrow is of normal overall signal. No acute vertebral body compression fractures. Spinal Cord: Conus medullaris terminates at the T12-L1 level. Visualized cord demonstrates normal signal and size. Paraspinous Soft Tissues: No paravertebral masses. T12-L1: Normal appearance. L1-L2: No significant abnormality is seen. L2-L3: The disc height is well-preserved. Loss of disc signal is seen at this level. Mild generalized disc bulge is seen. Mild facet joint hypertrophy is seen. There is [id number] right-sided and mild left-sided neural foraminal narrowing. No central canal narrowing is seen. L3-L4: Mild loss of disc height is seen. Loss of disc signal is seen. Moderate generalized disc bulge is seen. There is a mild central/right disc extrusion, with superior migration of the disc material. There is a focal annular fissure seen posteriorly. There is also a sequestered disc fragment seen on the left, as on series 6, image 22 and on series 3 image 12, measuring up to 1 cm. There is moderate left-sided and at least moderate right-sided neural foraminal narrowing. Moderate central canal narrowing is seen. L4-L5: Moderate loss of disc height is seen. Loss of disc signal is seen. Moderate generalized disc bulge is seen. There is a superimposed central disc protrusion. Mild facet joint hypertrophy is seen. There is at least moderate left-sided and moderate right-sided neural foraminal narrowing. Mild central canal narrowing is seen. L5-S1: At least moderate loss of disc height and disc signal can be seen. Reactive marrow endplate changes are seen, which demonstrate mixed T1 weighted and T2-weighted signal, and are attributed to a combination of edema and fatty metaplasia (Modic type I and Modic type II changes). Moderate disc bulge is seen, which is eccentric to the left. There is a mild central disc protrusion. Mild to moderate facet hypertrophy can be seen. There is at least moderate right-sided and moderate to severe left-sided neural foraminal narrowing. There is a degree of compression seen upon the exiting nerve roots. Mild central canal narrowing is seen. IMPRESSION: At the L3-L4 level, there is a mild central/right disc extrusion and also a sequestered disc fragment seen on the left. At the L5-S1 level, there is grade 1 anterolisthesis, with moderate to severe right-sided and moderate to severe left-sided neural foraminal narrowing. There is a degree of compression seen upon the exiting bilateral L5 nerve roots. The Dictated by: Alessandro Heart M.D. on 03/20/2025 at 14:27 Approved by: Alessandro Heart M.D. on 03/20/2025 at 14:32
== END ==
PROVIDERS: Family Provider Family Medicine; PCP Family Medicine; Referring Provider Family Medicine; Visit Provider Family Medicine
DX: M51.16 Intervertebral disc disorders with radiculopathy, lumbar region (principal); M43.17 Spondylolisthesis, lumbosacral region; M48.07 Spinal stenosis, lumbosacral region
CPT/HCPCS: 72148

== ENCOUNTER → 2025-04-24 11:59 | Outpatient (CLI) | payer MEDICARE, OTHER, SELFPAY ==
[2024-07-04 14:52] VITALS: BMI 18.2
== END ==
PROVIDERS: Family Provider Family Medicine; PCP Family Medicine; Referring Provider Physical Medicine & Rehabilitation; Visit Provider Physical Medicine & Rehabilitation
DX: G56.01 Carpal tunnel syndrome, right upper limb (principal); M54.12 Radiculopathy, cervical region
CPT/HCPCS: 95886; 95909

== ENCOUNTER → 2025-05-07 12:44 | Outpatient (CLI) | payer MEDICARE, OTHER, SELFPAY ==
[2024-07-04 14:52] VITALS: BMI 18.2
--- NOTE | 2025-05-07 12:45 | DI.ECHO.S_ITS ---
[facility] : : [address] : : [place] : : [id number] : : Phone: [phone] Echocardiogram Report + + :Name: GREGORY WEST Study Date: 05/07/2025 Height: 67 in : :[facility] ReadingLocation: Weight: 122 lb : : Gender: Male BSA: 1.6 m2 : :: 1940 Age: 84 yrs BP: 127/73 mmHg: :Reason For Study: Paroxysmal suppraventricular disease : :Ordering Physician: ALYSSA, : :MALGORZATA Performed By: Avelino Catalan : :Referring: MALGORZATA SHAH : + + Interpretation Summary 1. The left ventricular contractility is normal. Estimated ejection fraction is greater than 60% with no segmental wall motion abnormalities. No LVH. Normal diastolic function. 2. The right ventricular contractility is normal. 3. All cardiac chambers are of normal size. 4. Mild aortic valvular stenosis with peak gradient 2.5 m/s. Mean gradient 14.4 mmHg and dimensionless index of 0.46. Mild aortic insufficiency. 5. Mild tricuspid regurgitation with estimated pulmonary systolic artery pressures of 26 mmHg. 6. Trace to mild pulmonic insufficiency. 7. No obvious intracardiac shunts. 8. No obvious intracardiac masses nor thrombi. 9. No hemodynamically significant pericardial effusion. 8. Low right-sided filling pressures. Conclusion: Normal biventricular function with mild valvular disease Procedure: A two-dimensional transthoracic echocardiogram with color flow and Doppler was performed. The study quality was technically adequate. There is no prior echocardiogram noted for this patient. The patient was in normal sinus rhythm during the exam. Left Ventricle: The left ventricle is normal in size and wall thickness. Left ventricular systolic function is normal. The ejection fraction is estimated to be 60-65%. There are no focal wall motion abnormalities. Right Ventricle: The right ventricle is normal in size and function. Atria: The left atrial size is normal. Right atrial size is normal. There is no Doppler evidence for an interatrial shunt. Mitral Valve: The mitral valve leaflets appear to open well. There is no mitral valve stenosis. There is trace mitral regurgitation. Aortic Valve: The aortic valve is trileaflet. The calculated aortic valve area is 1.5 cm2. The peak aortic velocity is 2.5 m/sec. The aortic valve mean gradient is 14.4 mmHg. There is mild aortic regurgitation. Tricuspid Valve: Tricuspid leaflets are thickened. There is mild tricuspid regurgitation. The right ventricular systolic pressure is estimated to be at least 26 mmHg based on an estimated right atrial pressure of 3 mm Hg. Pulmonic Valve: The pulmonic valve is not well seen, but is grossly normal. There is mild pulmonic regurgitation. Great Vessels: The aortic root is normal size. The ascending aorta is normal in size. The aortic arch could not be visualized. The IVC is of normal diameter and collapses greater than 50% with a sniff. This suggests a low right atrial pressure of 3 mm Hg. Pericardium/ Pleura There is no pericardial effusion. MMode/2D Measurements & Calculations LVIDd: 4.6 cm LVOT diam: 2.0 cm LVIDs: 2.9 cm Ao root diam: 3.3 cm FS: 37.4 % asc Aorta Diam: 3.3 cm IVSd: 0.91 cm LVPWd: 0.92 cm LV vicente. diameter/BSA (cm/m^2): 2.8 LV sys. diameter/BSA (cm/m^2): 1.8 LA A2 area: 21.0 cm2 RA long axis: 5.1 cm LA A4 area: 15.2 cm2 RA area: 15.5 cm2 LA length (vol): 5.1 cm RA vol: 40.0 ml LA vol: 53.0 ml RA : 24.4 ml/m2 LA vol index: 32.3 ml/m2 IVC diam: 1.7 cm TAPSE: 2.7 cm Doppler Measurements & Calculations Ao V2 max: 246.1 cm/sec LVOT Max Noel: 113.1 cm/sec Ao V2 mean: 182.2 cm/sec LV V1 max P.1 mmHg Ao max P.2 mmHg LV V1 VTI: 23.4 cm Ao mean P.4 mmHg VENICE(I,D): 1.5 cm2 Ao V2 VTI: 51.0 cm VENICE(V,D): 1.5 cm2 sev ratio: 0.46 VENICE indexed to BSA (cm^2/m^2): 0.91 AI P1/2t: 665.2 msec AI dec slope: 168.4 cm/sec2 MV E max noel: 75.2 cm/sec TR max noel: 237.9 cm/sec MV A max noel: 85.2 cm/sec TR max P.6 mmHg MV E/A: 0.88 PA V2 max: 77.0 cm/sec Med Peak E' Noel: 6.5 cm/sec PA V2 mean: 57.7 cm/sec E/E' med: 11.5 PA mean P.4 mmHg Lat Peak E' Noel: 9.0 cm/sec PA pr(Accel): 25.9 mmHg E/E' lat: 8.4 E/e' average: 9.9 MV dec time: 0.18 sec SV(LVOT): 75.9 ml Reading Physician:JUSTIN
== END ==
PROVIDERS: Family Provider Family Medicine; PCP Family Medicine; Referring Provider Family Medicine; Visit Provider Family Medicine
DX: I08.2 Rheumatic disorders of both aortic and tricuspid valves (principal); I47.10 Supraventricular tachycardia, unspecified
CPT/HCPCS: 93306

== ENCOUNTER 2025-05-22 13:04 | Outpatient (CLI) | payer MEDICARE, OTHER, SELFPAY ==
[2024-07-04 14:52] VITALS: BMI 18.2
[2025-05-22] VITALS (8 sets, daily range): BP systolic 155–175; BP diastolic 71–87; PULSE 54–66; RESP 14–20; TEMP 36.6; O2SAT 98–100
[2025-05-22] MEDS: MIDAZOLAM 2 MG/2 ML VIAL IV (15:53)
[2025-05-22] MEDS: BETAMETHASONE 30 MG/5 ML MDV 12 MG INJ (15:57)
[2025-05-22] MEDS: BUPIVACAINE 0.25% (PF) VIAL 2 ML INJ (15:58)
[2025-05-22] MEDS: DEXAMETHASONE 10 MG/ML VIAL INJ (15:58)
--- NOTE | 2025-05-22 16:08 | PM.PROC.IR.1 ---
Date/Time/Diagnoses Date of procedure: 05/22/25 Time of procedure: 16:08 Pre-procedure diagnosis: 1. FORAMINAL STENOSIS WITH LE SYMPTOMS Post-procedure diagnosis: same Procedure Notes Procedure: 1. FLUOROSCOPICALLY GUIDED CONTRAST CONTROLLED TRANSFORAMINAL EPIDURAL STEROID INJECTION - LEFT L3/4 TFESI Indications: Darwin is referred by Dr. Quinteros for treatment of Foraminal Stenosis with left LE Symptoms Physician: Monty Larson Total Fluoroscopy time (seconds): 6 Total sedation minutes: 10 Complications: none Procedure in detail & Post-procedure care: FINDINGS Foraminal Nerve Root Compression secondary to disc disease and facet hypertrophy DESCRIPTION OF PROCEDURE Following review of allergy and review of potential side effects and complications, including, but not necessarily limited to, infection, allergic reaction, local tissue breakdown, stroke, temporary or permanent nerve injury, paralysis, and possible , the patient indicated that the patient understood and agreed to proceed. An informed consent document was signed by the patient, witnessed by a nurse, and placed in the patient's chart. Additionally, other treatment options including medications, modalities, and physical therapy were reviewed with the patient. After review of previous anaesthesic history and IV conscious sedation the patient was deemed safe to proceed with today?s procedure with IV conscious sedation as ASA class II designation. Safety time-out was performed to confirm patient ID, procedure to be performed and site of procedure. IV sedation was accomplished with a combination of 2mg of Versed was administered by the RN after DO order, titrated to patient comfort during the course of the procedure while the patient remained responsive to all verbal commands In the prone position following sterile prep and drape of the lumbar region, the left L3/4 posterior neuroforamen was identified fluoroscopically. The skin was anesthetized via a 25-gauge 1.5-inch needle with 1% lidocaine solution. At this point, a 25-gauge 3.5-inch spinal needle was atraumatically introduced and advanced under fluoroscopic guidance through the posterior left L3/4 neuroforamen to approximately the anterior aspect of the canal. Depth was confirmed on lateral view. Following negative aspiration, injection of approximately 1.5 cc of Isovue 200 under live fluoroscopy in the AP view confirmed excellent flow along the nerve root, into the epidural space without vascular or intrathecal uptake observed Radiological data, including multiple fluoroscopic views of the lumbosacral spine, reveal a spinal needle at the left L3/4 posterior neuroforamen. Subsequent views show flow of contrast material flowing superiorly and inferiorly along the nerve root confirming epidural flow. Subsequently, a test dose of 1.5cc of 0.25% marcaine solution was administered and patient was observed for two minutes for signs or symptoms of complications, including abdominal pain, shortness of breath, bilateral upper or lower extremity weakness, nausea and vomiting, prior to steroid injection. At this point, a total of 3cc or 10mg of dexamethasone and 12mg betamethasone was injected without incident. The patient tolerated the procedure well without signs or symptoms of complications prior to transfer to the recovery area continued monitoring without incident. The patient was then transferred to the recovery area where they were observed for an appropriate time after the injection. The patient reported a VAS score of 7 prior to the procedure and a post-procedure VAS of 0. POST OP INSTRUCTIONS The patient was provided a Pain Log to continue to record their response to the target-specific procedure prior to follow-up visit with their referring physician. Additionally, specific post-injection care instructions and a contact number to our office were provided if concerns arise regarding possible complications associated with the procedure are suspected.
== END 2025-05-22 16:47 | disposition home or self-care (01) ==
LOC: RAD 13:05
PROVIDERS: Family Provider Family Medicine; PCP Family Medicine; Referring Provider Family Medicine; Visit Provider Physical Medicine & Rehabilitation
DX: M48.061 Spinal stenosis, lumbar region without neurogenic claudication (principal); M51.16 Intervertebral disc disorders with radiculopathy, lumbar region; M47.26 Other spondylosis with radiculopathy, lumbar region
CPT/HCPCS: 64483; 99152; J0702; J1100; J2250

== ENCOUNTER → 2025-06-19 10:01 | Outpatient (CLI) | payer MEDICARE, OTHER, SELFPAY ==
[2024-07-04 14:52] VITALS: BMI 18.2
[2025-06-19 19:43] LABS: Add Manual Diff / Slide Review NO; Hematocrit 40.4 % (41-53); Hemoglobin 13.1 g/dL (13.5-17.5); Lymphocytes Absolute Auto 2200 /uL (1100-4500); Mean Corpuscular HGB Conc 32.4 % (30-36); Mean Corpuscular Hemoglobin 30.4 PG (26-34); Mean Corpuscular Volume 93.9 fL (80-100); Platelet Count 234 X10^3/uL (150-400)
[2025-06-19 20:07] LABS: Blood Urea Nitrogen 22 mg/dL (9-20); Calcium 10.0 mg/dL (8.4-10.2); Carbon Dioxide 27 mmol/L (22-32); Chloride 102 mmol/L (98-107); Estimated Glomerular Filt Rate > 60 mL/min (>60); Glucose 97 mg/dL (70-99); HEMOLYSIS < 15 (0-50); Potassium 4.4 mmol/L (3.4-5.1); Sodium 135 mmol/L (137-145)
[2025-06-19 21:00] LABS: Vitamin B12 > 1000 pg/mL (239-931)
[2025-06-29 14:08] LABS: Percent Free Testosterone 1.86
== END ==
PROVIDERS: PCP Family Medicine; Visit Provider Family Medicine
DX: D53.8 Other specified nutritional anemias (principal); Z12.5 Encounter for screening for malignant neoplasm of prostate; I10 Essential (primary) hypertension; Z79.890 Hormone replacement therapy
CPT/HCPCS: 80048; 82607; 84402; 84403; 85025; G0103

== ENCOUNTER 2025-08-07 09:02 | Outpatient (CLI) | payer MEDICARE, OTHER, SELFPAY ==
[2024-07-04 14:52] VITALS: BMI 18.2
[2025-08-07] VITALS (8 sets, daily range): BP systolic 120–157; BP diastolic 8–72; PULSE 44–53; RESP 14–18; TEMP 36.2; O2SAT 96–100
[2025-08-07] MEDS: MIDAZOLAM 2 MG/2 ML VIAL IV (10:48)
--- NOTE | 2025-08-07 11:10 | P.PCN_ITS ---
Date/Time/Diagnoses Date of procedure: 08/07/25 Time of procedure: 11:10 Pre-procedure diagnosis: 1. CERVICAL STENOSIS, 2. CERVICAL HNP WITH UPPER EXTREMITY RADICULAR FEATURES Post-procedure diagnosis: same Procedure Notes Procedure: 1. FLUORSCOPICALLY GUIDED CONTRAST CONTROLLED INTERLAMINAR EPIDURAL STEROID INJECTION - C6/7 TL VERÓNICA Indications: Darwin is referred by Dr. Quinteros for treatment of Cervical HNP with Upper Extremity Paresthesias. Physician: Monty Larson Total Fluoroscopy time (seconds): 28 Total sedation minutes: 14 Complications: none Procedure in detail & Post-procedure care: FINDINGS Cervical Stenosis due to disc deterioration and nerve root irritation and nerve root irritation DESCRIPTION OF PROCEDURE Fluoroscopically guided, contrast-controlled C6/7 translaminar epidural steroid injection with conscious sedation. Following review of allergy and review of potential side effects and complications, including, but not necessarily limited to, infection, allergic reaction, local tissue breakdown, temporary as well as permanent nerve injury, stroke, paralysis, and possible , the patient indicated that patient understood and agreed to proceed. An informed consent document was signed by the patient, witnessed by a nurse, and placed in the patient's chart. Additionally, other treatment options including modalities, medications, and physical therapy were reviewed with the patient. After review of previous anaesthesic history and IV conscious sedation the patient was deemed safe to proceed with today?s procedure with IV conscious sedation as ASA class II designation. Safety time-out was performed to confirm patient ID, procedure to be performed and site of procedure. IV sedation was accomplished with a combination of 2mg of Versed administered by the RN after DO order, titrated to patient comfort during the course of the procedure while the patient remained responsive to all verbal commands. In the prone position, following sterile prep and drape of the cervical region, the C6/7 translaminar space was identified fluoroscopically. The skin was anesthetized via a 25-gauge 1.5-inch needle with 1% lidocaine solution. At this point, a 25-gauge, 2.5-inch short bevel spinal needle was atraumatically introduced and advanced under fluoroscopic guidance into epidural space at the C6/7 translaminar space. Depth was confirmed on lateral view. Radiological data, including multiple fluoroscopic views of the cervical spine, reveal a spinal needle at the C6/7 translaminar space. Lateral views then show placement of the needle in the epidural space. Subsequent views show contrast material flowing superiorly and inferiorly in the epidural space. DSA fluoroscopy with live contrast injection, once again, confirmed no vascular or intrathecal uptake. At this point, using loss of resistance technique with saline and air, the epidural space was entered. Following negative aspiration, injection of approximately 1.5 cc of Isovue-200 with live fluoroscopy in the AP view confirmed epidural flow in the epidural space without vascular or intrathecal uptake observed. Subsequently, a test dose of 1 cc of 1% lidocaine solution was injected and patient was observed for two minutes without signs or symptoms of complications, including abdominal pain, shortness of breath, bilateral upper or lower extremity weakness, nausea and vomiting, prior to steroid injection. At this point, 3cc or 30mg of dexamethasone was then injected without incident. The patient tolerated the procedure well without signs or symptoms of compli cations prior to being transferred to the recovery area for further monitoring, The patient was then transferred to the recovery area where they were observed for an appropriate period of time after the injection. The patient reported a VAS score of 6 prior to the procedure and a post-procedure VAS of 0. POST OP INSTRUCTIONS The patient was provided a Pain Log to continue to record their response to the target-specific procedure prior to follow-up visit with the referring provider. Additionally, specific post-injection care instructions and a contact number to our office were provided if concerns arise regarding possible complications associated with the procedure are suspected.
== END 2025-08-07 11:23 | disposition home or self-care (01) ==
LOC: RAD 09:06
PROVIDERS: PCP Family Medicine; Referring Provider Family Medicine; Visit Provider Physical Medicine & Rehabilitation
DX: M48.02 Spinal stenosis, cervical region (principal); M50.123 Cervical disc disorder at C6-C7 level with radiculopathy
CPT/HCPCS: 62321; 99152; J1100; J2250

== ENCOUNTER → 2025-10-09 14:06 | Outpatient (CLI) | payer MEDICARE, SELFPAY ==
[2024-07-04 14:52] VITALS: BMI 18.2
[2025-10-09 19:08] LABS: Add Manual Diff / Slide Review NO; Hematocrit 30.7 % (41-53); Hemoglobin 10.0 g/dL (13.5-17.5); Lymphocytes Absolute Auto 1500 /uL (1100-4500); Mean Corpuscular HGB Conc 32.5 % (30-36); Mean Corpuscular Hemoglobin 30.2 PG (26-34); Mean Corpuscular Volume 92.9 fL (80-100); Platelet Count 503 X10^3/uL (150-400)
[2025-10-09 19:42] LABS: HEMOLYSIS < 15 (0-50); Iron 76 ug/dL (49-181)
[2025-10-09 19:44] LABS: Alanine Aminotransferase 14 IU/L (<50); Albumin 3.7 g/dL (3.5-5.0); Albumin Globulin Ratio 1.0 (1.0-2.8); Alkaline Phosphatase 104 U/L (38-126); Blood Urea Nitrogen 62 mg/dL (9-20); Calcium 9.9 mg/dL (8.4-10.2); Carbon Dioxide 22 mmol/L (22-32); Chloride 107 mmol/L (98-107); Cholesterol 195 mg/dL (140-199); Estimated Glomerular Filt Rate > 60 mL/min (>60); Globulin 3.6 g/dL (1.7-4.1); Glucose 118 mg/dL (70-99); HDL Cholesterol 87 mg/dL (40-60); HEMOLYSIS < 15 (0-50); Potassium 5.2 mmol/L (3.4-5.1); Sodium 140 mmol/L (137-145); Total Protein 7.3 g/dL (6.3-8.2); Triglycerides 99 mg/dL (35-150)
[2025-10-09 19:57] LABS: Percent Iron Saturation 18 % (20-50); Total Iron Binding Capacity 426 ug/dL (261-462); Transferrin 374 mg/dL (206-381)
[2025-10-09 21:36] LABS: Vitamin B12 > 1000 pg/mL (239-931)
== END ==
PROVIDERS: PCP Family Medicine; Visit Provider Family Medicine
DX: D53.8 Other specified nutritional anemias (principal); E78.2 Mixed hyperlipidemia; M12.9 Arthropathy, unspecified; R13.10 Dysphagia, unspecified; J18.8 Other pneumonia, unspecified organism; I48.0 Paroxysmal atrial fibrillation; I47.10 Supraventricular tachycardia, unspecified; Z79.890 Hormone replacement therapy
CPT/HCPCS: 80053; 80061; 82607; 83540; 83550; 84402; 84403; 85025

== ENCOUNTER → 2025-11-19 11:04 | Outpatient (CLI) | payer MEDICARE, SELFPAY ==
[2025-11-05 08:02] VITALS: BMI 18.2
[2025-11-19 16:27] LABS: Add Manual Diff / Slide Review NO; Hematocrit 36.6 % (41-53); Hemoglobin 12.0 g/dL (13.5-17.5); Lymphocytes Absolute Auto 1900 /uL (1100-4500); Mean Corpuscular HGB Conc 32.9 % (30-36); Mean Corpuscular Hemoglobin 30.3 PG (26-34); Mean Corpuscular Volume 92.0 fL (80-100); Platelet Count 203 X10^3/uL (150-400)
[2025-11-19 16:31] LABS: Blood Urea Nitrogen 24 mg/dL (9-20); Calcium 9.4 mg/dL (8.4-10.2); Carbon Dioxide 25 mmol/L (22-32); Chloride 107 mmol/L (98-107); Estimated Glomerular Filt Rate > 60 mL/min (>60); Glucose 95 mg/dL (70-99); HEMOLYSIS 27 (0-50); Potassium 4.2 mmol/L (3.4-5.1); Sodium 140 mmol/L (137-145); Uric Acid 6.3 mg/dL (3.5-8.5)
[2025-11-19 17:18] LABS: Vitamin B12 819 pg/mL (239-931)
== END ==
PROVIDERS: PCP Family Medicine; Visit Provider Family Medicine
DX: I10 Essential (primary) hypertension (principal); M10.071 Idiopathic gout, right ankle and foot; E83.52 Hypercalcemia; R79.89 Other specified abnormal findings of blood chemistry
CPT/HCPCS: 80048; 82607; 84550; 85025